=== PATIENT | female | born 1940 | race Caucasian/White ===

== ENCOUNTER → 2017-05-23 | Day surgery (SDC) | payer OTHER ==
[~2017-05-23] VITALS: Ht 165.1 cm; Wt 88.5 kg
[~2017-05-23] MED LIST: ALBU1AER9 INH; APIX1TAB3 PO; CETI1CAP3 PO; DYZ PO; FLUT0.15 NAE; FMR25 PO; PRLSR20 PO; PROP60CA5 PO; PROPOFOL IV EMULSION 10 MG/ML 20 ML VIAL IV ONE; RSTOPS OP; SYN100 PO; ZOLP5TAB PO
[2017-05-23 07:06] VITALS: BP 122/67; PULSE 84; TEMP 36.3; O2SAT 98; Ht 165.1 cm; Wt 88.5 kg
[2017-05-23 07:22] VITALS: BP 122/67; PULSE 82; O2SAT 98
--- NOTE | 2017-05-23 07:28 | History & Physical Bridge Note ---
H&P Re-Evaluation Bridge Note: I have examined the patient, reviewed the History & Physical and in the interval since the performance of the History & Physical I have noted the following changes of clinical significance: No changes noted. Patient remains in AF on examination this am and on telemetry. She has been on Eliquis without interruption for over 4 weeks, with most recent dose this am.
[2017-05-23 07:32] VITALS: BP 125/58; PULSE 82; O2SAT 98
[2017-05-23 07:35] VITALS: BP 125/58; PULSE 84; O2SAT 98
--- NOTE | 2017-05-23 07:42 | Cardioversion ---
Electricial Cardioversion Rpt Date of Service: 05/23/17 Electrical Cardioversion Rprt Procedure Date May 23, 2017. Pre-Procedure Diagnosis symptomatic atrial fibrillation Post-Procedure Diagnosis successful conversion to sinus rhythm Procedure(s) Performed Direct-current cardioversion Master Craftsman Ke Alexandra D.O. Forging Engineer(s) not applicable Estimated Blood Loss none Preliminary Findings After informed consent was obtained and a timeout was performed, the patient was sedated with the assistance of anesthesia department receiving 60 mg of IV propofol. The patient then underwent synchronized direct-current cardioversion receiving 300 J of biphasic energy 1 dose with successful conversion from atrial fibrillation to sinus bradycardia. Patient tolerated procedure well vital signs remain stable. Recommendations Continue current medications including Eliquis. Specimens none Anesthesia Propofol 60 mg IV Complication(s) None Disposition recover in the post cardiac screedman/laborer recovery area.
--- NOTE | 2017-05-23 08:34 | Discharge Instructions ---
Discharge Instructions Procedure Procedure Date: May 23, 2017. Reason for Visit: Symptomatic persistent atrial fibrillation Discharge Discharge Date: May 23, 2017. Discharge Diagnosis: Successful conversion to sinus rhythm Last Recorded Wt (Kilograms): 88.5 Anesthesia Post Anesthesia Instructions: If you have had General Anesthesia or IV Sedation: * Do not drive today. * Resume driving when surgeon permits. * Do not make important decisions or sign legal documents today. * Call surgeon for: 1. Temperature elevations greater than 101 degrees F. 2. Uncontrollable pain. 3. Excessive bleeding. 4. Persistent nausea and vomiting. 5. Medication intolerance (nausea, vomiting or rash). * For nausea and vomiting use only clear liquids such as: tea, soda, bouillon until nausea subsides, then gradually increase diet as tolerated. * If you have any concerns or questions, call your surgeon's office. If physician is unavailable and it is an emergency, call 911 or go to the nearest emergency room. Instructions Activity Recommendations: limitations as noted below Recommended Home Diet: resume previous diet Allergies: Coded Allergies: Adhesives (Verified Allergy, Unknown, Skin irritation;Skin very sensitive; , 04/27/17) Allantoin (Verified Allergy, Unknown, Skin very sensitive;, 04/27/17) Aloe (Verified Allergy, Unknown, Skin very sensitive;, 04/27/17) Edetic Acid (Verified Allergy, Unknown, Skin very sensitive;, 04/27/17) Glycerin (Verified Allergy, Unknown, Skin very sensitive;, 04/27/17) Lanolin (Verified Allergy, Unknown, Skin very sensitive;, 04/27/17) Sorbitol (Verified Allergy, Unknown, Skin very sensitive;, 04/27/17) Stearic Acid (Verified Allergy, Unknown, Skin very sensitive;, 04/27/17) Trolamine (Verified Allergy, Unknown, Skin very sensitive;, 04/27/17) Vegetable Oil (Verified Allergy, Unknown, Skin very sensitive;, 04/27/17) Vitamin A (Verified Allergy, Unknown, Skin very sensitive;, 04/27/17) Provider Instructions ACTIVITY RECOMMENDATIONS: Resume activities as tolerated with no limitations unless specified. _x_ No lifting over _10_ pounds for 24 hours. _x_ Do not engage in vigorous exercise, sexual activity, or sports for 24 hours. _x_ Do not drive or operate any motorized equipment for 24 hours. _x_ You may return to work/school tomorrow. SPECIAL CARE: If you experience coughing up or vomiting of blood, contact __Dr Alexandra __ Follow Up Follow-up with: Follow up with Dr Alexandra as scheduled. Sina Ma Recommendations: Call your doctor if: * Temperature above 101 degrees * Pain not relieved by pain medicine ordered * There is increased drainage or redness from any incision * You have any unanswered questions or concerns. Your Doctors Instructions noted above were prepared by provider Ke Alexandra. Patient Signature Section: Patient Instructions Signature Page Xi Kanwal Patient (or Guardian) Signature/Date: I have read and understand the instructions given to me by my caregivers. Caregiver/RN/Doctor Signature/Date: The above-named patient and/or guardian has received patient instructions on this date. + Original Patient Signature Page (only) stays with chart. Please make copy for patient.
[2017-05-23 09:00] VITALS: BP 108/52; PULSE 52; O2SAT 98
--- NOTE | 2017-05-23 09:25 | Anesthesiology Progress Note ---
Anesthesia Post Op Note Date & Time May 23, 2017 at 09:25 Vital Signs Pain Intensity: 0 Vital Signs Past 12 Hours Date Time Temp Pulse Resp B/P (MAP) Pulse Ox O2 Delivery O2 Flow Rate FiO2 05/23/17 09:00 52 16 108/52 (70) 98 Room Air 05/23/17 08:45 50 16 104/50 (68) 98 Room Air 05/23/17 08:30 50 16 106/53 (70) 98 Room Air 05/23/17 08:15 49 16 87/42 (57) 98 Room Air 05/23/17 08:00 48 16 94/43 (60) 98 Room Air 05/23/17 07:50 49 16 92/40 (57) 98 Room Air 05/23/17 07:35 84 16 125/58 98 Nasal Cannula 4 05/23/17 07:32 82 16 125/58 98 Nasal Cannula 4 05/23/17 07:22 82 16 122/67 98 Nasal Cannula 4 05/23/17 07:06 36.3 84 16 122/67 (85) 98 Room Air Notes Mental Status: alert / awake / arousable, participated in evaluation Pt Amnestic to Procedure: Yes Nausea / Vomiting: adequately controlled Pain: adequately controlled Airway Patency, RR, SpO2: stable & adequate BP & HR: stable & adequate Hydration State: stable & adequate Anesthetic Complications: no major complications apparent
== END | disposition home or self-care (01) ==
LOC: C.CATH 06:29
PROVIDERS: ATTEND Specialist
DX: I48.1 Persistent atrial fibrillation (principal); G25.0 Essential tremor; C50.211 Malignant neoplasm of upper-inner quadrant of right female breast; I10 Essential (primary) hypertension; Z79.01 Long term (current) use of anticoagulants

== ENCOUNTER → 2017-07-13 | Outpatient (CLI) | payer OTHER ==
[~2017-07-13] MED LIST changes: -PROPOFOL IV EMULSION 10 MG/ML 20 ML VIAL IV ONE
[2017-07-13 14:57] VITALS: BP 143/60; PULSE 60; TEMP 36.4; O2SAT 96
--- NOTE | 2017-07-13 16:23 | Radiation Oncology Follow-Up ---
Radiation Oncology Follow-Up Date of Visit Jul 13, 2017. 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 She received 5130 cGy utilizing hypo-fractionation. Last Edited By: Jamia Bennett on Jun 27, 2017 13:23 History of Present Illness Ms. Schofield has a previous history of B-cell lymphoma involving the left axilla treated with radiation therapy to a dose of 3600 cGy which completed on 04/13/2011. The patient has been in remission from her B-cell lymphoma since then. More recently, the patient presented with an abnormal mammogram on 2016 which revealed a lesion in the right breast at the 2 o'clock position 3 cm the nipple. The patient underwent an ultrasound core biopsy of the right breast on 01/04/2017 which revealed invasive lobular carcinoma that was grade 2 and was estrogen receptor positive and progesterone receptor positive and HER-2 negative. The patient underwent a bilateral MRI of the breasts on 03/12/2017 which only confirmed the known malignancy in the right breast measuring 14 mm in the greatest dimension but no other evidence of suspicious cancer in either the right or left breast. The patient underwent a right breast lumpectomy and sentinel lymph node biopsy by Dr. Clementine Hawk on 03/31/2017 which revealed invasive lobular carcinoma that was grade 2 and measured 18 mm in the greatest dimension and was unifocal. The margins were negative and the closest margin was 2 mm. No DCIS was noted in the specimen. There was no evidence of lymphovascular space invasion. 3 sentinel lymph nodes were excised and they were all negative for metastatic carcinoma. The patient's pathology specimen was sent for a Prosigna score which came back on 04/14/2017 with the score of 60 which placed her into the intermediate risk category. The patient has been referred to Dr. Mina Castillo from medical oncology (records unavailable). We are now seeing the patient in consultation discuss all of adjuvant radiation therapy. Currently, the patient doing relatively well overall. She denies any fevers, chills or night sweats. She states she is healed up well from surgery. She has no other complaints. Status post completion of radiation therapy June 13, 2017. She received 5130 cGy utilizing hypo-fractionation. Interim History She has been doing well over the past month. The skin irritation at the end of treatment healed without difficulty. She has noted no masses or tenderness no change of the axilla. She has had no swelling of her arm. She did have issues with her right shoulder. She was seen and evaluated. She had x-rays that revealed arthritis. She was on a dose of prednisone for approximately 13 days. This is now greatly improved. She does have a mild rash under the right breast. She has a prescriptive cream that she is used in the past. She is planning to call dermatology for a refill. She is sensitive to many prescriptive creams and only uses the 1 that has been prescribed by the road freight firer. She has started antiestrogen therapy. She is tolerating this well. Allergies Coded Allergies: Adhesives (Verified Allergy, Unknown, Skin irritation;Skin very sensitive; , 06/16/17) Allantoin (Verified Allergy, Unknown, Skin very sensitive;, 06/16/17) Aloe (Verified Allergy, Unknown, Skin very sensitive;, 06/16/17) Edetic Acid (Verified Allergy, Unknown, Skin very sensitive;, 06/16/17) Glycerin (Verified Allergy, Unknown, Skin very sensitive;, 06/16/17) Lanolin (Verified Allergy, Unknown, Skin very sensitive;, 06/16/17) Sorbitol (Verified Allergy, Unknown, Skin very sensitive;, 06/16/17) Stearic Acid (Verified Allergy, Unknown, Skin very sensitive;, 06/16/17) Trolamine (Verified Allergy, Unknown, Skin very sensitive;, 06/16/17) Vegetable Oil (Verified Allergy, Unknown, Skin very sensitive;, 06/16/17) Vitamin A (Verified Allergy, Unknown, Skin very sensitive;, 06/16/17) Home Medications Scheduled Apixaban (Eliquis), 5 MG PO BID Cetirizine Hcl (All Day Allergy), 10 MG PO DAILY Cyclosporine (Restasis Eye Drops), 1 DROP OP BID Fluticasone Propionate (Nasal) (Flonase Allergy Relief), 2 SPRAYS DILAN DAILY Letrozole (Femara), 1 TAB PO DAILY Levothyroxine (Synthroid *), 0.1 MG PO DAILY Omeprazole (Prilosec), 20 MG PO DAILY Propranolol Hcl (Inderal La), 60 MG PO DAILY Triamterene/Hctz (Dyazide 37.5MG/25MG *), 1 CAP PO DAILY Scheduled PRN Albuterol (Proair Hfa), 2 PUFFS INH QID PRN Zolpidem Tartrate (Ambien), 1 TAB PO HS PRN for Sleep Review of Systems Gastrointestinal: GI Comments: Stools loose, but formed- recent salmonella;1-3 BMs/day; Oral: Symptoms: No Problems Respiratory: Symptoms: WNL Urinary: Symptoms: WNL Skin: Other Skin Symptoms: Rashy appearance under right breast;using cetaphil; itchy; Breast: Right Upper Arm Measurement: 33.0 Right Mid Arm Measurement: 25.0 Right Wrist Measurement: 16.5 Left Upper Arm Measurement: 35.0 Left Mid Arm Measurement: 26.0 Left Wrist Measurement: 16.0 Arm Dominence: Left Additional Notes: She completed a distress management report and answered "no" to all questions other than she continues has concerns about her medical treatment choices. Physical Exam Vital Signs Date Time Temp Pulse Resp B/P (MAP) Pulse Ox O2 Delivery O2 Flow Rate FiO2 07/13/17 14:57 36.4 60 20 143/60 96 Fatigue: None General Appearance: no apparent distress Eyes: normal inspection, EOMI ENT: normal ENT inspection, hearing grossly normal Neck: no adenopathy, thyroid normal Respiratory/Chest: lungs clear, no respiratory distress, no accessory muscle use Breast: Breast examination reveals well-healed incisions the right breast. There is slight edema. There are no masses or tenderness and no axillary adenopathy. There is a well-demarcated rash in the inframammary fold. Using the [place] score of cosmesis she has a good outcome. The left breast showed no masses or tenderness and no axillary adenopathy. Cardiovascular: regular rate, rhythm, no gallop, no murmur Abdomen: non tender, soft, no organomegaly Extremities: no pedal edema Neurologic/Psychiatric: no motor/sensory deficits, alert, normal mood/affect Skin: warm/dry Pain Management Patient Reports Pain: No Pain Management Plan She denied pain therefore requires no pain management. Laboratory Laboratory Results: not applicable Pathology Pathology Results: were reviewed, and pertinent findings noted in HPI Imaging Imaging Studies: were reviewed, and pertinent findings noted in HPI Assessment & Plan Plan: Follow-up mammography has been scheduled through Dr. Hawk's office. Continue follow-up with Dr. Castillo. She continues on the antiestrogen therapy. We asked her to return to our office in 6 months. She may call if she has any questions or concerns in the interim. Today we completed a cancer survivorship care plan. A copy of the document was given to the patient. She was also given a survivorship booklet. Total Time In Follow-Up I spent 20 minutes speaking to the patient and performing examination. I spent 20 minutes reviewing information, preparing the survivorship document, and completing this note. 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
== END | disposition home or self-care (01) ==
LOC: C.ONC 14:46
PROVIDERS: ATTEND Physician Assistant Medical
DX: Z08 Encounter for follow-up examination after completed treatment for malignant neoplasm (principal); Z92.3 Personal history of irradiation; Z85.3 Personal history of malignant neoplasm of breast

== ENCOUNTER → 2017-09-07 | Outpatient (CLI) | payer OTHER ==
[~2017-09-07] MED LIST changes: +PROP60CA26 PO; -PROP60CA5 PO
[2017-09-07 10:16] LABS: HEMATOCRIT 44.3 % (37-47); HEMOGLOBIN 15.1 g/dL (12.0-16.0); MEAN CELL VOLUME 87.9 fL (80-100); MEAN CORPUSCULAR HGB CONC 34.1 g/dl (32-36); MEAN PLATELET VOLUME 10.8 fL (7.4-10.4); PLATELET COUNT 166 K/uL (130-400); RED CELL DISTRIBUTION WIDTH CV 13.6 % (11.5-14.5); RED CELL DISTRIBUTION WIDTH SD 43.8 fL (36.4-46.3); WHITE BLOOD COUNT 6.76 K/uL (4.8-10.8)
[2017-09-07 10:37] LABS: BLOOD UREA NITROGEN 14 mg/dl (7-18); CALCIUM 9.3 mg/dl (8.5-10.1); CARBON DIOXIDE 29 mmol/L (21-32); CHOLESTEROL 166 mg/dl (0-200); GLUCOSE 98 mg/dl (70-99); LDL CHOLESTEROL CALCULATED 93 mg/dl; POTASSIUM 3.4 mmol/L (3.5-5.1); SODIUM 138 mmol/L (136-145)
== END ==
LOC: C.LABFOXMH 09:24
PROVIDERS: ATTEND Internal Medicine
DX: E03.9 Hypothyroidism, unspecified (principal); I10 Essential (primary) hypertension

== ENCOUNTER 2019-12-22 18:59 | Inpatient (IN) ==
[2019-12-22] MEDS ORDERED: ONDANSETRON INJ 2 MG/ML 2 ML VIAL IV STA (19:47)
--- NOTE | 2019-12-22 19:52 | Emergency Department Note ---
History of Present Illness General Chief complaint: Illness Stated complaint: ABD PAIN, VOMITING, FEVER Time Seen by Provider: 12/22/19 19:38 Source: patient History of Present Illness Provider complaint: Abdominal pain Onset (ago): day(s) Location: abdomen and left Radiation: abdomen (Right abdomen) Severity: moderate Pain Consistency: + intermittent Maximum Pain Intensity: 5 Quality: + sharp Relieved By: + none Associated symptoms: + fever/chills (Low-grade temperature with T-max 100.1 today), + nausea/vomiting and + other (Loose diarrhea without blood x5); no chest pain, no cough, no headaches and no shortness of breath This is an 79-year-old female presents with abdominal pain. The pain started at 3 AM Monday morning. She describes it as a sharp pain in the left lower quadrant with some radiation to the right side. No alleviating factors. She rates it a 5 out of 10 in severity. It is associated with vomiting as well as diarrhea. The diarrhea is loose without blood. She had 5 episodes since this started. She has had a low-grade temperature of 100.1 today. She has had no recorded fevers. The patient denies any urinary symptoms, chest pain, shortness of breath or known exposure COVID-19. She denies any recent antibiotic use and denies any sick contacts. Home Medications Home Medications Medication Instructions Recorded Confirmed Type amlodipine [Norvasc] 2.5 mg PO DAILY 12/22/19 12/22/19 History apixaban [Eliquis] 5 mg PO BID 12/22/19 12/22/19 History cetirizine 10 mg PO DAILY 12/22/19 12/22/19 History famotidine 20 mg PO BID 12/22/19 12/22/19 History fluticasone propionate [Flonase 2 spray INTRANASAL DAILY PRN 12/22/19 12/22/19 History Allergy Relief] letrozole [Femara] 2.5 mg PO DAILY 12/22/19 12/22/19 History levothyroxine [Synthroid] 88 mcg PO DAILY 12/22/19 12/22/19 History potassium chloride 10 meq PO DAILY 12/22/19 12/22/19 History sotalol 80 mg PO BID 12/22/19 12/22/19 History triamterene-hydrochlorothiazid 1 tab PO DAILY 12/22/19 12/22/19 History [Maxzide-25mg] zolpidem [Ambien] 5 mg PO HS 12/22/19 12/22/19 History Allergies Allergy/AdvReac Type Severity Reaction Status Date / Time adhesive Allergy Unknown Skin Verified 12/22/19 22:10 irritation;Skin very sensitive; allantoin Allergy Unknown Skin very Verified 12/22/19 22:10 sensitive; aloe Allergy Unknown Skin very Verified 12/22/19 22:10 sensitive; edetic acid Allergy Unknown Skin very Verified 12/22/19 22:10 sensitive; glycerin Allergy Unknown Skin very Verified 12/22/19 22:10 sensitive; lanolin Allergy Unknown Skin very Verified 12/22/19 22:10 sensitive; trolamine salicylate Allergy Unknown Skin very Verified 12/22/19 22:10 sensitive; vitamin A Allergy Unknown Skin very Verified 12/22/19 22:10 sensitive; Stearic Acid Allergy Unknown Skin very Uncoded 12/22/19 22:10 sensitive; Past Med/Surg History Medical History Atrial fibrillation Breast cancer Fracture of left ankle H/O head and neck radiation History of cardioversion Hypertension Hypothyroid Lymphoma Thyroid tumor, benign Surgical History H/O partial thyroidectomy History of section History of partial mastectomy of left breast Social History Smoking Status: Former smoker Hx Alcohol Use: No (rare) Hx Substance Use: No Preferred Language: Telugu Communication Ability: Effective Cnc Service Engineer Required: No Beliefs That Will Affect Care: None Current Living Situation: Spouse Feels Safe at Home: Yes Review of Systems See HPI for pertinent positives & negatives. and A total of 10 systems reviewed and were otherwise negative Physical Exam Vital Signs Vital Signs - 24 hr 12/22/19 19:17 12/22/19 20:54 12/22/19 22:17 Temperature 37.4 C Temperature Source Oral Pulse Rate 72 Pulse Rate [Left Apical] 62 93 H Respiratory Rate 20 20 20 Respiratory Effort / Characteristics Non-Labored Spontaneous Normal for Patient Respiratory Depth Normal Blood Pressure 117/62 Blood Pressure [Right Arm] 136/54 L 146/59 H Blood Pressure Mean 80 Blood Pressure Mean [Right Arm] 81 88 Blood Pressure Position [Right Arm] Lying Pulse Oximetry 96 94 98 Oxygen Delivery Method Room Air Room Air Sepsis New/Unexplained Change in Mental Status N/A Sepsis Action Taken by Nursing No Action Required Constitutional: Vital signs reviewed. Eyes: Pupils are equal round reactive to light. Conjunctiva are noninjected. ENT: Pharynx is clear without erythema or exudate. Mucous membranes are slightly dry. Neck supple without meningeal signs. Respiratory: Clear to auscultation bilaterally. Breath sounds are equal bilaterally. Cardiovascular: Regular rate and rhythm. No rubs or gallops. GI: Soft, nondistended with left lower quadrant tenderness and mild right lower quadrant tenderness. No guarding. Bowel sounds are present. Musculoskeletal: No peripheral edema. No lower extremity tenderness. Integumentary: No cyanosis. or jaundice. Neurological: The patient is awake and alert. No focal deficits. Psychiatric: Normal affect. Not anxious appearing. Course Administered Medications Discontinued Medications Sodium Chloride (Nss) 500 mls @ 999 mls/hr IV .Q31M ILIR Stop: 12/22/19 20:30 Last Infusion: 12/22/19 21:25 Dose: 0 mls/hr Documented by: [id number] Admin: 12/22/19 20:47 Dose: 999 mls/hr Documented by: [id number] Piperacillin Sod/Tazobactam Sod (Zosyn) 4.5 gm in 120 mls @ 240 mls/hr IV NOW ONE Stop: 12/22/19 21:34 Last Admin: 12/22/19 21:25 Dose: 240 mls/hr Documented by: [id number] Ondansetron HCl (Ondansetron Inj 2 Mg/Ml 2 Ml Vial) 4 mg IV NOW STA Stop: 12/22/19 19:48 Last Admin: 12/22/19 20:46 Dose: 4 mg Documented by: [id number] Critical Care Time Critical Care Time: Yes Total Critical Care Time: 35 I have personally spent approximately 35 minutes of critical care time in the direct management of this patient. This includes bedside care, interpretation of diagnostic studies, and testing, discussion with consultants, patient, and family members, and other required patient management activities. These minutes are in excess of all separately billable procedures. Medical Decision Making Differential Diagnosis Diverticulitis, perforation, abscess, appendicitis, kidney stone, gastroenteritis, dehydration Medical Records Attestation: I reviewed the patient's medical records. I did perform a limited focused review of portions of the patient's old chart on the electronic medical record. The patient has had no recent pertinent visits to this hospital. Home Medications Current Medication List: was personally reviewed by me Laboratory Data Attestation: I reviewed the patient's lab results. Result diagrams: 12/22/19 21:20 12/22/19 21:20 Lab Results 12/22/19 12/22/19 12/22/19 Range/Units 21:20 21:20 21:30 WBC 21.22 H (4.8-10.8) K/uL RBC 4.94 (4.2-5.4) M/uL Hgb 14.8 (12.0-16.0) g/dL Hct 44.0 (37-47) % MCV 89.1 (80-100) fL MCH 30.0 (25-34) pg MCHC 33.6 (32-36) g/dL RDW Std Deviation 44.3 (36.4-46.3) fL RDW Coeff of Ken 13.6 (11.5-14.5) % Plt Count 145 (130-400) K/uL MPV 10.6 H (7.4-10.4) fL Immature Gran % (Auto) 0.3 % Neut % (Auto) 82.7 % Lymph % (Auto) 11.2 % Edmunds % (Auto) 5.7 % Eos % (Auto) 0.0 % Baso % (Auto) 0.1 % Neut # (Auto) 17.54 H (1.4-6.5) K/uL Lymph # (Auto) 2.38 (1.2-3.4) K/uL Edmunds # (Auto) 1.21 H (0.11-0.59) K/uL Eos # (Auto) 0.00 (0-0.5) K/uL Baso # (Auto) 0.02 (0-0.2) K/uL Immature Gran # (Auto) 0.07 H (0.00-0.02) K/uL PT 11.8 (9.0-12.0) Seconds INR 1.1 (0.9-1.1) APTT 31.7 H (21.0-31.0) Seconds PTT Ratio 1.1 Sodium 137 (136-145) mmol/L Potassium 3.5 (3.5-5.1) mmol/L Chloride 104 (98-107) mmol/L Carbon Dioxide 25 (21-32) mmol/L Anion Gap 8.0 (3-11) BUN 17 (7-18) mg/dl Creatinine 1.00 (0.6-1.2) mg/dl Est Cr Clr Drug Dosing 49.7 ml/min Est GFR ( Amer) 61.6 Est GFR (Non-Af Amer) 53.2 BUN/Creatinine Ratio 16.6 (10-20) Glucose 128 H (70-99) mg/dl Calcium 9.1 (8.5-10.1) mg/dl Total Bilirubin 1.2 H (0.2-1) mg/dl AST 24 (15-37) U/L ALT 19 (12-78) U/L Alkaline Phosphatase 56 (45-117) U/L Total Protein 6.9 (6.4-8.2) gm/dl Albumin 3.2 L (3.4-5.0) gm/dl Globulin 3.7 (2.5-4.0) gm/dl Albumin/Globulin Ratio 0.9 (0.9-2) Lipase 66 L (73-393) U/L COVID-19 Eval Order SARS-CoV-2, RNA, NAAT (NEGATIVE) 12/22/19 12/22/19 Range/Units 21:57 21:57 WBC (4.8-10.8) K/uL RBC (4.2-5.4) M/uL Hgb (12.0-16.0) g/dL Hct (37-47) % MCV (80-100) fL MCH (25-34) pg MCHC (32-36) g/dL RDW Std Deviation (36.4-46.3) fL RDW Coeff of Ken (11.5-14.5) % Plt Count (130-400) K/uL MPV (7.4-10.4) fL Immature Gran % (Auto) % Neut % (Auto) % Lymph % (Auto) % Edmunds % (Auto) % Eos % (Auto) % Baso % (Auto) % Neut # (Auto) (1.4-6.5) K/uL Lymph # (Auto) (1.2-3.4) K/uL Edmunds # (Auto) (0.11-0.59) K/uL Eos # (Auto) (0-0.5) K/uL Baso # (Auto) (0-0.2) K/uL Immature Gran # (Auto) (0.00-0.02) K/uL PT (9.0-12.0) Seconds INR (0.9-1.1) APTT (21.0-31.0) Seconds PTT Ratio Sodium (136-145) mmol/L Potassium (3.5-5.1) mmol/L Chloride (98-107) mmol/L Carbon Dioxide (21-32) mmol/L Anion Gap (3-11) BUN (7-18) mg/dl Creatinine (0.6-1.2) mg/dl Est Cr Clr Drug Dosing ml/min Est GFR ( Amer) Est GFR (Non-Af Amer) BUN/Creatinine Ratio (10-20) Glucose (70-99) mg/dl Calcium (8.5-10.1) mg/dl Total Bilirubin (0.2-1) mg/dl AST (15-37) U/L ALT (12-78) U/L Alkaline Phosphatase (45-117) U/L Total Protein (6.4-8.2) gm/dl Albumin (3.4-5.0) gm/dl Globulin (2.5-4.0) gm/dl Albumin/Globulin Ratio (0.9-2) Lipase (73-393) U/L COVID-19 Eval Order Covid19 IDNow [facility] SARS-CoV-2, RNA, NAAT NEGATIVE (NEGATIVE) Imaging Data Radiologist's Impression: CT ABDOMEN & PELVIS Without Contrast: Colon is in the left abdomen, and small bowel loops are in the right abdomen, suggesting bowel malrotation. Significantly enlarged, inflamed appendix which is located in the midline lower abdomen/left lower quadrant, measuring approximately up to 1.8 cm in diameter. Appendicoliths within the appendix. Findings are concerning for acute appendicitis. Wall thickening 2 segments of the sigmoid colon may represent colitis. Wall thickening of the small bowel loops in the lower abdomen, concerning for enteritis/reactive inflammatory changes. Mesenteric edema and small amount of fluid in the left lower abdomen and pelvis. No definite free air. No fluid collection. Large hiatal hernia. Hepatic steatosis. No hydronephrosis or stone. Atherosclerotic changes of the vasculature. No aortic aneurysm. Pacer wires partially visualized in the heart. Small fat-containing umbilical hernia. Decompressed bladder. Radiologist: Yadira Chavira M.D. Study ready at 20:37 and initial results transmitted at 20:51 Communications: Clear Time Type Notes 12/22/19 20:52 Call Doctor Regarding Appendicitis, called Dr. Singleton on 12/21 20:52 (-04:00) Blood Pressure Blood Pressure Findings: Normal blood pressure MDM Narrative I did evaluate the patient as noted above. The patient is presenting with left-sided abdominal pain with tenderness. She also has diarrhea. I was concerned about diverticulitis. IV access was established. I did treat the patient with Zofran and normal saline IV. She declined any pain medications. I did order a urine analysis. I did order and review the patient's blood work as noted in the electronic medical record. She has severe leukocytosis with a white count over 21,000. Electrolytes and LFTs are unremarkable. Lipase is not elevated. I did order a CT of the abdomen and pelvis. I did review the images myself as well as the radiology report as described above. I did discuss the results with the radiologist. She has what appears to be acute appendicitis with perforation. There is a small amount of free fluid in the lower abdomen with significant inflammatory changes to the adjacent sigmoid colon and small bowel as well as mesentery. I did treat the patient with Zosyn IV. I did discuss the test results with the patient and her . I did discuss case with Dr. Reyes of surgery. He came down to the emergency department and assessed the patient. The patient last took her Eliquis this morning. The surgeon did take the patient emergently to the OR for operative repair. Impression & Plan Acute appendicitis with generalized peritonitis, Anticoagulated Discharge Plan Visit Data Chief Complaint: Illness Stated Complaint: ABD PAIN, VOMITING, FEVER ED Provider: Addison Singleton Discharge Problem: Acute appendicitis with generalized peritonitis, Anticoagulated Patient Disposition: Admitted As Inpatient Discharge Instructions Interventions: ED Discharge Assessment Last Done: 12/22/19 22:53
[2019-12-22] MEDS ORDERED: SODIUM CHLORIDE 0.9% 500 ML IV SCH (20:00)
[2019-12-22] MEDS ORDERED: PIPERACILLIN/TAZOBACTAM 4.5 GM/120 ML BAG IV ONE (21:05)
[2019-12-22] MEDS ORDERED: PIPERACILL/TAZOBAC CONSULT ACTIVE PRN (21:05)
[2019-12-22 21:28] LABS: Basophils # (auto) 0.02 K/uL (0-0.2); Basophils % (auto) 0.1 %; Hemoglobin 14.8 g/dL (12.0-16.0); Immature Granulocytes # (auto) 0.07 K/uL (0.00-0.02); Immature Granulocytes % (auto) 0.3 %; Lymphocytes # (auto) 2.38 K/uL (1.2-3.4); Lymphocytes % (auto) 11.2 %; Mean Corpuscular Hgb Conc 33.6 g/dL (32-36); Mean Corpuscular Volume 89.1 fL (80-100); Mean Platelet Volume 10.6 fL (7.4-10.4); Monocytes # (auto) 1.21 K/uL (0.11-0.59); Monocytes % (auto) 5.7 %; Neutrophils # (auto) 17.54 K/uL (1.4-6.5); Neutrophils % (auto) 82.7 %; Platelet Count 145 K/uL (130-400); RDW Coefficient of Variation 13.6 % (11.5-14.5); RDW Standard Deviation 44.3 fL (36.4-46.3); Red Blood Count 4.94 M/uL (4.2-5.4); White Blood Count 21.22 K/uL (4.8-10.8)
[2019-12-22 21:46] LABS: Albumin Level 3.2 gm/dl (3.4-5.0); BUN Creatinine Ratio 16.6 (10-20); Calcium 9.1 mg/dl (8.5-10.1); Creatinine Clr Calc Pharmacy 49.7 ml/min; Est GFR (African American) 61.6; Est GFR (Non-African American) 53.2; Potassium 3.5 mmol/L (3.5-5.1)
[2019-12-22 21:49] LABS: Albumin Globulin Ratio 0.9 (0.9-2); Bilirubin,Total 1.2 mg/dl (0.2-1); Globulin 3.7 gm/dl (2.5-4.0); Total Protein 6.9 gm/dl (6.4-8.2)
[2019-12-22 21:53] LABS: INR 1.1 (0.9-1.1); Partial Thromboplastin Ratio 1.1; Partial Thromboplastin Time 31.7 Seconds (21.0-31.0); Prothrombin Time 11.8 Seconds (9.0-12.0)
--- NOTE | 2019-12-22 22:23 | Surgery Consultation ---
Date of Consultation December 22, 2019 Assessment & Plan (1) Acute abdominal pain: pt is a 79 year-old female who presents to ER with 2 days history lower abdominal pain with nausea and vomiting, fever, WBC 21,000 CT scan- acute appendicitis, diameter 1.8cm, mal-bowel rotation, IMP: acute abdominal pain, acute appendicitis, sepsis, plan, I recommend to do laparoscopic appendectomy, possible open, D/W benefits, risks and alternatives of the surgery, the risks - infection may higher than n ormal people base on pt is Eliquis, last dose was this morning, pt hold her evening dose, others risks including but not limit such as : infection, abscess, sepsis, WA, injury other organs, stroke, DVT and , pt and her understood, they agree with the surgery. I answered all questions, pre-op iv antibiotic, (2) Acute appendicitis with generalized peritonitis: (3) Sepsis: History of Present Illness History of Present Illness History of Present Illness General Chief complaint: Illness Stated complaint: ABD PAIN, VOMITING, FEVER Time Seen by Provider: 12/22/19 19:38 Source: patient History of Present Illness Provider complaint: Abdominal pain Onset (ago): day(s) Location: abdomen and left Radiation: abdomen (Right abdomen) Severity: moderate Pain Consistency: + intermittent Maximum Pain Intensity: 5 Quality: + sharp Relieved By: + none Associated symptoms: + fever/chills (Low-grade temperature with T-max 100.1 today), + nausea/vomiting and + other (Loose diarrhea without blood x5); no chest pain, no cough, no headaches and no shortness of breath This is an 79-year-old female presents with abdominal pain. The pain started at 3 AM Monday morning. She describes it as a sharp pain in the left lower quadrant with some radiation to the right side. No alleviating factors. She rates it a 5 out of 10 in severity. It is associated with vomiting as well as diarrhea. The diarrhea is loose without blood. She had 5 episodes since this started. She has had a low-grade temperature of 100.1 today. She has had no recorded fevers. The patient denies any urinary symptoms, chest pain, shortness of breath or known exposure COVID-19. She denies any recent antibiotic use and denies any sick contacts. I ( Stalin Reyes MD) got a call for consult acute appendicitis, I reviewed pt's H/P, labs, CT scan with pt, last dose of Eliquis was morning. Home Medications Home Medications Medication Instructions Recorded Confirmed Type Cyclosporine (Restasis Eye Drops) 1 drp OPHTHALMIC (EYE) BID #0 02/25/11 01/16/18 History Levothyroxine (Synthroid *) 0.1 mg PO DAILY #0 02/25/11 01/16/18 History Albuterol (Proair Hfa) 2 puff INHALATION QID PRN #0 12/21/12 01/16/18 History CETIRIZINE HCL (ALL DAY ALLERGY) 10 mg PO DAILY #0 12/21/12 01/16/18 History APIXABAN (ELIQUIS) 5 mg PO BID #0 tab 04/27/17 01/16/18 History Fluticasone Propionate (Nasal) 2 spry DILAN DAILY #0 04/27/17 01/16/18 History (Flonase Allergy Relief) ZOLPIDEM TARTRATE (AMBIEN) 1 tab PO HS PRN 30 Days #30 tab 04/27/17 History LETROZOLE (Femara) 1 tab PO DAILY 30 Days #30 tab 05/22/17 01/16/18 History CLOBETASOL PROPIONATE EMULSION #0 11/14/17 01/16/18 History (CLOBETASOL PROPIONATE) Potassium Ext Rel (Klor-Con) 10 meq PO DAILY #0 tab 11/14/17 01/16/18 History famotidine-Ca carb-mag hydrox 1 tab PO BID 01/09/18 01/16/18 History [Pepcid Complete] sotalol 80 mg PO BID #60 tab 01/11/18 01/16/18 Rx triamterene-hydrochlorothiazid 1 cap PO MoWeFr@0900 #30 cap 01/12/18 01/16/18 Rx Allergies Allergy/AdvReac Type Severity Reaction Status Date / Time adhesive Allergy Unknown Skin Verified 01/16/18 14:33 irritation;Skin very sensitive; allantoin Allergy Unknown Skin very Verified 01/16/18 14:33 sensitive; aloe Allergy Unknown Skin very Verified 01/16/18 14:33 sensitive; edetic acid Allergy Unknown Skin very Verified 01/16/18 14:33 sensitive; glycerin Allergy Unknown Skin very Verified 01/16/18 14:33 sensitive; lanolin Allergy Unknown Skin very Verified 01/16/18 14:33 sensitive; trolamine salicylate Allergy Unknown Skin very Verified 01/16/18 14:33 sensitive; vitamin A Allergy Unknown Skin very Verified 01/09/18 07:16 sensitive; Stearic Acid Allergy Unknown Skin very Uncoded 01/09/18 07:16 sensitive; Past Med/Surg History Medical History Atrial fibrillation Breast cancer Fracture of left ankle H/O head and neck radiation History of cardioversion Hypertension Hypothyroid Lymphoma Thyroid tumor, benign Surgical History H/O partial thyroidectomy History of section History of partial mastectomy of left breast Social History Smoking Status: Former smoker Hx Alcohol Use: No (rare) Hx Substance Use: No Preferred Language: Afghan Communication Ability: Effective 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 and A total of 10 systems reviewed and were otherwise negative Allergies Allergy/AdvReac Type Severity Reaction Status Date / Time adhesive Allergy Unknown Skin Verified 12/22/19 22:10 irritation;Skin very sensitive; allantoin Allergy Unknown Skin very Verified 12/22/19 22:10 sensitive; aloe Allergy Unknown Skin very Verified 12/22/19 22:10 sensitive; edetic acid Allergy Unknown Skin very Verified 12/22/19 22:10 sensitive; glycerin Allergy Unknown Skin very Verified 12/22/19 22:10 sensitive; lanolin Allergy Unknown Skin very Verified 12/22/19 22:10 sensitive; trolamine salicylate Allergy Unknown Skin very Verified 12/22/19 22:10 sensitive; vitamin A Allergy Unknown Skin very Verified 12/22/19 22:10 sensitive; Stearic Acid Allergy Unknown Skin very Uncoded 12/22/19 22:10 sensitive; Home Medications Home Medications Medication Instructions Recorded Confirmed Type amlodipine [Norvasc] 2.5 mg PO DAILY 12/22/19 12/22/19 History apixaban [Eliquis] 5 mg PO BID 12/22/19 12/22/19 History cetirizine 10 mg PO DAILY 12/22/19 12/22/19 History famotidine 20 mg PO BID 12/22/19 12/22/19 History fluticasone propionate [Flonase 2 spray INTRANASAL DAILY PRN 12/22/19 12/22/19 History Allergy Relief] letrozole [Femara] 2.5 mg PO DAILY 12/22/19 12/22/19 History levothyroxine [Synthroid] 88 mcg PO DAILY 12/22/19 12/22/19 History potassium chloride 10 meq PO DAILY 12/22/19 12/22/19 History sotalol 80 mg PO BID 12/22/19 12/22/19 History triamterene-hydrochlorothiazid 1 tab PO DAILY 12/22/19 12/22/19 History [Maxzide-25mg] zolpidem [Ambien] 5 mg PO HS 12/22/19 12/22/19 History Patient History Medical History Atrial fibrillation Breast cancer Fracture of left ankle H/O head and neck radiation History of cardioversion Hypertension Hypothyroid Lymphoma Thyroid tumor, benign Surgical History H/O partial thyroidectomy History of section History of partial mastectomy of left breast Social History Smoking Status: Former smoker Hx Alcohol Use: No (rare) Hx Substance Use: No Preferred Language: Afghan Communication Ability: Effective Tractor Trailer Moving Van Driver Required: No Beliefs That Will Affect Care: None Current Living Situation: Spouse Feels Safe at Home: Yes Review of Systems Review of Systems: All systems reviewed & are unremarkable except as noted in HPI & below Constitutional: as per Subjective / HPI Eyes: as per Subjective / HPI Ear, Nose, Mouth, Throat: as per Subjective / HPI Respiratory: as per Subjective / HPI Cardiovascular: as per Subjective / HPI Additional Comments: A-fib Gastrointestinal: as per Subjective / HPI Genitourinary: as per Subjective / HPI Breast cancer Musculoskeletal: as per Subjective / HPI Integumentary: as per Subjective / HPI Neurologic: as per Subjective / HPI Psychiatric: as per Subjective / HPI Endocrine: as per Subjective / HPI Hematologic / Lymphatic: as per Subjective / HPI lymphoma 2011 Allergy / Immunological: as per Subjective / HPI Physical Exam Constitutional: WD/WN, vitals as above well developed and well nourished Eyes: PERRL, conjunctivae normal, anicteric sclerae ENMT: external ear and nose normal, oropharynx normal Neck: trachea midline, no thyromegaly Respiratory: normal respiratory effort, lungs clear to auscultation Cardiovascular: Heart Sounds: normal S1 and normal S2 Aifib, Gastrointestinal (Abdomen): lower middle line scar, tenderness at lower left side abdomen, with rebound pain, no distend, BS + Musculoskeletal: no cyanosis or clubbing, extremities motor strength 5/5 Skin: no rashes, warm and dry Neurologic: patellar DTR's 2+ bilat, sensation intact Psychiatric: Orientation: alert and oriented x 3 Results & Data ([facility]) Vital Signs (Past 12 Hours) Vital Signs Temp Pulse Pulse Resp BP BP Pulse Ox 12/22/19 20:54 62 20 136/54 L 94 12/22/19 19:17 37.4 C 72 20 117/62 96 Laboratory Results Abnormal lab results 12/22/19 12/22/19 12/22/19 Range/Units 21:20 21:20 21:30 WBC 21.22 H (4.8-10.8) K/uL MPV 10.6 H (7.4-10.4) fL Neut # (Auto) 17.54 H (1.4-6.5) K/uL [place] # (Auto) 1.21 H (0.11-0.59) K/uL Immature Gran # (Auto) 0.07 H (0.00-0.02) K/uL APTT 31.7 H (21.0-31.0) Seconds Glucose 128 H (70-99) mg/dl Total Bilirubin 1.2 H (0.2-1) mg/dl Albumin 3.2 L (3.4-5.0) gm/dl Lipase 66 L (73-393) U/L CT scan- mal-bowel rotation, acute appendicitis, located at LLLQ area, diameter, 1.8cm,
[2019-12-22] MEDS ORDERED: BACITRACIN OINT 15 GM TUBE ONE (22:24)
[2019-12-22] MEDS ORDERED: LIDOCAINE HCL 1% 20 ML VIAL ONE (22:24)
[2019-12-22] MEDS ORDERED: BUPIVACAINE 0.5 % 5 MG/1 ML MPF 30ML VIAL ONE (22:24)
--- NOTE | 2019-12-22 22:35 | History & Physical Bridge Note ---
Date of Service December 22, 2019 History & Physical Bridge Note I have examined the patient, reviewed the History & Physical and in the interval since the performance of the History & Physical I have noted the following changes of clinical significance: no changes noted
[2019-12-22] MEDS ORDERED: fentaNYL citrate 100 MCG/2 ML VIAL ONE (22:52)
[2019-12-22] MEDS ORDERED: PROPOFOL IV EMULSION 10 MG/ML 20 ML VIAL IV ONE (22:53)
[2019-12-22] MEDS ORDERED: LIDOCAINE HCL 2% 2 ML VIAL/AMP(20MG/ML) INFIL ONE (22:55)
[2019-12-22] MEDS ORDERED: GLYCOPYRROLATE 0.2 MG/ML VIAL ONE (22:55)
[2019-12-22] MEDS ORDERED: ONDANSETRON INJ 2 MG/ML 2 ML VIAL ONE (22:55)
[2019-12-22] MEDS ORDERED: NEOSTIGMINE METHYLSULFATE 5 MG/5 ML SYR ONE (22:55)
[2019-12-22] MEDS ORDERED: ROCURONIUM BROMIDE 10 MG/ML 5 ML VIAL IV ONE ×5 (22:55)
--- NOTE | 2019-12-22 23:09 | Anesthesiology Consultation ---
Date of Service December 22, 2019 Assessment & Plan Chart Review Chart Review: Acceptable Risk for Surgery Consults Requested none History Surgery Operation Date: 12/22/19 22:00 Proposed Procedures p Laparoscopic Appendectomy - Stalin Reyes MD Height/Weight Height: 5 ft 6 in Weight: 86.5 kg Allergies Allergy/AdvReac Type Severity Reaction Status Date / Time adhesive Allergy Unknown Skin Verified 12/22/19 22:10 irritation;Skin very sensitive; allantoin Allergy Unknown Skin very Verified 12/22/19 22:10 sensitive; aloe Allergy Unknown Skin very Verified 12/22/19 22:10 sensitive; edetic acid Allergy Unknown Skin very Verified 12/22/19 22:10 sensitive; glycerin Allergy Unknown Skin very Verified 12/22/19 22:10 sensitive; lanolin Allergy Unknown Skin very Verified 12/22/19 22:10 sensitive; trolamine salicylate Allergy Unknown Skin very Verified 12/22/19 22:10 sensitive; vitamin A Allergy Unknown Skin very Verified 12/22/19 22:10 sensitive; Stearic Acid Allergy Unknown Skin very Uncoded 12/22/19 22:10 sensitive; Medications Home Medications Medication Instructions Recorded Confirmed Last Taken amlodipine [Norvasc] 2.5 mg PO DAILY 12/22/19 12/22/19 Unknown apixaban [Eliquis] 5 mg PO BID 12/22/19 12/22/19 Unknown cetirizine 10 mg PO DAILY 12/22/19 12/22/19 Unknown famotidine 20 mg PO BID 12/22/19 12/22/19 Unknown fluticasone propionate [Flonase 2 spray INTRANASAL DAILY PRN 12/22/19 12/22/19 Unknown Allergy Relief] letrozole [Femara] 2.5 mg PO DAILY 12/22/19 12/22/19 Unknown levothyroxine [Synthroid] 88 mcg PO DAILY 12/22/19 12/22/19 Unknown potassium chloride 10 meq PO DAILY 12/22/19 12/22/19 Unknown sotalol 80 mg PO BID 12/22/19 12/22/19 Unknown triamterene-hydrochlorothiazid 1 tab PO DAILY 12/22/19 12/22/19 Unknown [Maxzide-25mg] zolpidem [Ambien] 5 mg PO HS 12/22/19 12/22/19 Unknown NPO Date Last Intake of Fluids: 12/22/19 Time Last Intake of Fluids: 12:00 Last Intake of Fluids Comment: Tea Date Last Intake of Solids: 12/22/19 Time Last Intake of Solids: 10:30 Past Medical History Medical History Atrial fibrillation Breast cancer Fracture of left ankle H/O head and neck radiation History of cardioversion Hypertension Hypothyroid Lymphoma Thyroid tumor, benign Past Surgical History Surgical History H/O partial thyroidectomy History of section History of partial mastectomy of left breast Social History Smoking Status: Former smoker Hx Alcohol Use: No (rare) Hx Substance Use: No substance use type: does not use Physical Exam Vital Signs Last Vital Signs Temp 37.4 C 12/22/19 19:17 Pulse 93 H 12/22/19 22:17 Resp 20 12/22/19 22:17 BP 146/59 H 12/22/19 22:17 Pulse Ox 98 12/22/19 22:17 Testing Laboratory Results 12/22/19 21:20 12/22/19 21:20 PT 11.8 Seconds (9.0-12.0) 12/22/19 21:30 INR 1.1 (0.9-1.1) 12/22/19 21:30 APTT 31.7 Seconds (21.0-31.0) H 12/22/19 21:30
[2019-12-22] MEDS ORDERED: HYDROmorphone INJ 1 MG/ML SYRINGE IV PRN (23:11)
[2019-12-22] MEDS ORDERED: PROMETHAZINE HCL 12.5 MG in SODIUM CHLORIDE 0.9% 50 ML IV PRN (23:11)
[2019-12-22] MEDS ORDERED: ONDANSETRON INJ 2 MG/ML 2 ML VIAL IV PRN (23:11)
[2019-12-22] MEDS ORDERED: METOCLOPRAMIDE HCL INJ 5 MG/ML 2 ML VIAL IV PRN (23:11)
[2019-12-22] MEDS ORDERED: fentaNYL citrate 100 MCG/2 ML VIAL IV PRN (23:11)
[2019-12-22] MEDS ORDERED: ATROPINE SULFATE 0.1 MG/ML 10ML SYR IV PRN (23:11)
[2019-12-22] MEDS ORDERED: ePHEDrine sulfate 50 MG/ML AMP IV PRN (23:11)
[2019-12-23] MEDS ORDERED: VANCOMYCIN HCL 1000MG/20ML VIAL ONE (00:18)
[2019-12-23] MEDS ORDERED: LABETALOL HCL IV 5 MG/ML 20ML IV ONE (00:25)
[2019-12-23] MEDS ORDERED: METOPROLOL TARTRATE 1 MG/ML VIAL IV ONE (00:25)
--- NOTE | 2019-12-23 00:57 | Post Operative Brief Note ---
Immediate Post Op Note v1 Date of Surgery December 23, 2019 Pre & Post Diagnosis Operation Date: 12/22/19 22:00 Pre-Op Diagnosis: Acute appendicitis Post-Op Diagnosis: Acute appendicitis, gangrene, perforation I identified the patient and participated in the time-out.: Yes Procedure Operation Date: 12/22/19 22:00 Actual Procedures p Laparoscopic Appendectomy, converted to Open (Not Applicable) - Stalin Reyes MD Surgeon Stalin Reyes MD Water Vessel Captain airframe technical officer Estimated Blood Loss 10 Findings Consistent with Post-Op Diagnosis acute appendicitis, gangrene and perforation Fluids 1000ml Specimens appendix Drains Mac Catheter (inserted at beginning of case by Oriana Knutson RN without difficulty. Draining clear yellow urine, discontinued at the end of the procedure) Anesthesia Type General Complications none Disposition Accompanied Patient To Recovery: Yes Disposition: Recovery Room Overlapping Procedure I was immediately available: during the entire case.
[2019-12-23] MEDS ORDERED: PIPERACILL/TAZOBAC CONSULT ACTIVE PRN ×2 (01:33→10:21)
[2019-12-23] MEDS ORDERED: FLUTICASONE PROPIONATE NA SPR 16 GM BTL PRN (01:33)
[2019-12-23] MEDS ORDERED: HYDROmorphone INJ 0.5 MG/0.5 ML SYR IV PRN (01:33)
[2019-12-23] MEDS ORDERED: ONDANSETRON INJ 2 MG/ML 2 ML VIAL IV PRN (01:33)
[2019-12-23] MEDS ORDERED: LACTATED RINGER'S 1,000 ML IV SCH ×2 (01:33→21:45)
--- NOTE | 2019-12-23 01:41 | Critical Care Consultation ---
Date of Consultation December 23, 2019 Assessment & Plan (1) Acute appendicitis with generalized peritonitis: Impression: 79-year-old female with acute appendicitis and peritonitis with concern for sepsis presents to the ICU postoperatively following open appendectomy Neuro - CAM ICUnegative Pain managementPercocet, Dilaudid Cardiac - Currently normotensive without use of vasopressors, no current signs of septic shock A. fibcurrently rate controlled -Currently holding Eliquis following surgery -Continue Sotalol -Continuous monitoring on telemetry AV blockstatus post pacemaker HTNwe will hold home dose medications for the time being as there is concern for sepsis, may restart when appropriate Respiratory - No history respiratory disease, currently maintaining sats on 4 L nasal cannula -We will wean as tolerated -Continuous monitoring on pulse ox GI - Acute appendicitisCT abdomen concerning for acute appendicitis, now s/p open appendectomy -Concern for perforation, sepsis, peritonitis; and patient transferred to ICU following procedure -We will follow surgical recommendation -Currently no signs of septic shock -Continue Zosyn Hiatal herniacontinue PPI -N.p.o. for now, would advance diet with caution ColitisCT reading as above, consistent with reports of diarrhea -Continue with Zosyn Bowel malrotationlikely incidental finding on CT scan, will monitor for signs of bowel obstruction RENAL/LYTES - Creatinine within normal limits, monitor electrolytes and replete as indicated Hypothyroidismwe will continue home dose potassium 10 mEq daily - Indwelling Mac, strict I's and O's ENDO - No history of diabetes, ICU hypoglycemic protocol Hypothyroidism following thyroidectomyTSH within normal limits, continue Synthroid HEME - H&H stable, monitor routine CBCs ID - Sepsis? Secondary to intra-abdominal infection with acute appendicitis with perforation (s/p appendectomy), concern for peritonitis, colitis on CT abdomen -Fever of 100.1 in the emergency department, now afebrile; significant leukocytosis -We will obtain blood cultures and UA, will obtain lactate -COVID negative -Loaded with Zosyn in the emergency department, will continue LINES/IV ACCESS - Peripheral IVs x2, Mac DVT PROPHYLAXIS - SCDs, Lovenox Thank you for allowing us to participate in the care of this patient. Please refer to my attending physician's documentation for any further recommendations. (2) Anticoagulated: (3) Sepsis: (4) Acute abdominal pain: (5) A-fib: (6) Hypothyroidism associated with surgical procedure: (7) Acute colitis: (8) Hiatal hernia: History of Present Illness Attending Physician: Stalin Reyes MD History of Present Illness Patient is a 79-year-old female with history of HTN, breast cancer, hypothyroidism following thyroidectomy, A. fib (on Eliquis) who presented to the emergency department yesterday evening with complaints of abdominal pain, fever, and diarrhea which started around 3 AM. She rated abdominal pain of 5 out of 10. She did have a low-grade fever of 100.1, denied known exposure to COVID-19, and rapid COVID 19 negative. There was initial concern for diverticulitis and she underwent CT of the abdomen which showed a significantly enlarged and inflamed appendix with concern for acute appendicitis and finding of malrotation of the colon which appendix is on the left lower abdominal quadrant. Patient was given Zosyn and general surgery was consulted and took the patient emergently to the OR for appendectomy. Laparoscopic appendectomy was converted to open and there was concern for perforation, gangrene, and potential sepsis. There was concern that the patient was high risk for rapid decompensation and surgeon felt patient should be transferred to the ICU for further management. Patient presents to the ICU postop. She is currently hemodynamically stable without use of vasopressors and maintaining oxygen saturation on nasal cannula. She is currently afebrile. She is rather drowsy following sedation but is alert and oriented. She currently reports mild generalized discomfort and tenderness of the abdomen with light palpation. She denies headache, nausea, dizziness, shortness of breath, chest pain. Will manage in ICU during the acute phase as patient is high risk for decompensation following acute appendicitis with perforation, generalized peritonitis, and concerns for sepsis. Allergies Allergy/AdvReac Type Severity Reaction Status Date / Time adhesive Allergy Unknown Skin Verified 12/22/19 22:10 irritation;Skin very sensitive; allantoin Allergy Unknown Skin very Verified 12/22/19 22:10 sensitive; aloe Allergy Unknown Skin very Verified 12/22/19 22:10 sensitive; edetic acid Allergy Unknown Skin very Verified 12/22/19 22:10 sensitive; glycerin Allergy Unknown Skin very Verified 12/22/19 22:10 sensitive; lanolin Allergy Unknown Skin very Verified 12/22/19 22:10 sensitive; trolamine salicylate Allergy Unknown Skin very Verified 12/22/19 22:10 sensitive; vitamin A Allergy Unknown Skin very Verified 12/22/19 22:10 sensitive; Stearic Acid Allergy Unknown Skin very Uncoded 12/22/19 22:10 sensitive; Home Medications Home Medications Medication Instructions Recorded Confirmed Type amlodipine [Norvasc] 2.5 mg PO DAILY 12/22/19 12/22/19 History apixaban [Eliquis] 5 mg PO BID 12/22/19 12/22/19 History cetirizine 10 mg PO DAILY 12/22/19 12/22/19 History famotidine 20 mg PO BID 12/22/19 12/22/19 History fluticasone propionate [Flonase 2 spray INTRANASAL DAILY PRN 12/22/19 12/22/19 History Allergy Relief] letrozole [Femara] 2.5 mg PO DAILY 12/22/19 12/22/19 History levothyroxine [Synthroid] 88 mcg PO DAILY 12/22/19 12/22/19 History potassium chloride 10 meq PO DAILY 12/22/19 12/22/19 History sotalol 80 mg PO BID 12/22/19 12/22/19 History triamterene-hydrochlorothiazid 1 tab PO DAILY 12/22/19 12/22/19 History [Maxzide-25mg] zolpidem [Ambien] 5 mg PO HS 12/22/19 12/22/19 History Patient History Medical History (Updated 12/23/19 @ 03:05 by SABINA Forrester) Atrial fibrillation Breast cancer Fracture of left ankle H/O head and neck radiation History of cardioversion Hypertension Hypothyroid Lymphoma Thyroid tumor, benign Surgical History H/O partial thyroidectomy History of section History of partial mastectomy of left breast Social History Smoking Status: Never smoker Second Hand Exposure: No; Do You Dip or Chew Tobacco: No; Tobacco Cessation Education Requested by Patient: No Hx Alcohol Use: No Hx Substance Use: No Preferred Language: Danish Communication Ability: Effective Nurse Esthetician Required: No Beliefs That Will Affect Care: None Current Living Situation: Spouse Other Information That Helps Us Care for You: No Feels Safe at Home: Yes Safety Concerns: Feels Safe At This Time Review of Systems Review of Systems: All systems reviewed & are unremarkable except as noted in HPI & below Physical Exam Constitutional: cooperative, comfortable and + lethargic Eyes: PERRL, conjunctivae normal, anicteric sclerae ENMT: external ear and nose normal, oropharynx normal Neck: trachea midline, no thyromegaly Respiratory: normal respiratory effort, lungs clear to auscultation Cardiovascular: Rate/Rhythm: + irregularly irregular Heart Sounds: normal S1 and normal S2; no murmur Vessels: no JVD Extremities: normal capillary refill; no edema Gastrointestinal (Abdomen): Abdomen is obese and soft and nondistended, tender with light palpation. Bowel sounds normal. There is a midline surgical incision with surgical dressing intact. Skin: no rashes, warm and dry Neurologic: PERRL, EOMI, accommodation nl, no face palsy, no dysarthria Psychiatric: A+Ox3, euthymic affect Genitourinary: Indwelling Mac catheter Results & Data Results & Data ([facility]) Vital Signs (Past 12 Hours) Vital Signs Temp Pulse Pulse Resp BP BP Pulse Ox 12/23/19 01:23 91 H 17 126/63 96 12/23/19 01:20 85 19 95 12/23/19 01:17 92 H 17 121/56 L 97 12/23/19 01:14 91 H 20 98 12/23/19 01:12 37.5 C 70 15 113/48 L 12/22/19 22:17 93 H 20 146/59 H 98 12/22/19 20:54 62 20 136/54 L 94 12/22/19 19:17 37.4 C 72 20 117/62 96 Coding Level of Care Code 02835 Inpt Consult Level 5 Diagnoses Acute appendicitis with generalized peritonitis K35.20 Appendicitis abscess presence: without abscess Appendicitis gangrene presence: unspecified whether gangrene present Appendicitis perforation presence: with perforation Anticoagulated Z79.01 Sepsis A41.9 Acute abdominal pain R10.9 A-fib I48.91 Hypothyroidism associated with surgical procedure E89.0 Acute colitis K52.9 Hiatal hernia K44.9 (1) Acute appendicitis with generalized peritonitis Appendicitis abscess presence: without abscess Appendicitis gangrene presence: unspecified whether gangrene present Appendicitis perforation presence: with perforation Qualified Code(s): K35.20 - Acute appendicitis with generalized peritonitis, without abscess
[2019-12-23] MEDS: PIPERACILLIN/TAZOBACTAM 3.375 GM in DEXTROSE 5% 100 ML IV SCH ×2 (02:04→10:16)
--- NOTE | 2019-12-23 02:11 | Anesthesiology Progress Note ---
Date of Service December 23, 2019 Anesthesia Post Procedure Vital Signs Vital Signs: Temp Pulse Pulse Resp BP BP Pulse Ox 12/23/19 01:40 92 H 16 96 12/23/19 01:34 77 19 119/52 L 95 12/23/19 01:30 78 15 95 12/23/19 01:23 91 H 17 126/63 96 12/23/19 01:20 85 19 95 12/23/19 01:17 92 H 17 121/56 L 97 12/23/19 01:14 91 H 20 98 12/23/19 01:12 37.5 C 70 15 113/48 L 12/22/19 22:17 93 H 20 146/59 H 98 12/22/19 20:54 62 20 136/54 L 94 12/22/19 19:17 37.4 C 72 20 117/62 96 Transfer of Care Handoff Completed per policy Notes Mental Status: alert / awake / arousable and participated in evaluation Patient Amnestic to Procedure: Yes Nausea / Vomiting: adequately controlled Pain: adequately controlled Airway Patency, RR, SpO2: stable & adequate BP & HR: stable & adequate Hydration State: stable & adequate Anesthetic Complications: no major complications apparent
[2019-12-23 03:15] LABS: Appearance Urine Cloudy (Clear); Bacteria Urine Automated Negative (Negative); Bilirubin Urine Negative (Negative); Blood Urine 3+ (Negative); Color Urine Dark Yellow; Epithelial Cell Urine Auto >30 /lpf (0-5); Glucose Urine UA Negative (Negative); Ketones Urine Trace (Negative); Leukocyte Esterase Urine 1+ (Negative); Nitrite Urine Negative (Negative); Protein Urine 2+ (Negative); Specific Gravity Urine 1.024 (1.000-1.030); Urobilinogen Urine Negative (Negative); WBC Urine Automated >30 /hpf (0-5); pH Urine 5.5 (4.5-7.5)
[2019-12-23] MEDS ORDERED: ICU PROTOCOL FOR HYPERGLYCEMIA PRN (03:18)
[2019-12-23 03:55] LABS: Basophils # (auto) 0.01 K/uL (0-0.2); Basophils % (auto) 0.1 %; Hematocrit (blood only) 42.4 % (37-47); Hemoglobin 14.3 g/dL (12.0-16.0); Immature Granulocytes # (auto) 0.02 K/uL (0.00-0.02); Immature Granulocytes % (auto) 0.2 %; Lymphocytes # (auto) 0.71 K/uL (1.2-3.4); Lymphocytes % (auto) 5.9 %; Mean Corpuscular Hemoglobin 29.8 pg (25-34); Mean Corpuscular Hgb Conc 33.7 g/dL (32-36); Mean Corpuscular Volume 88.3 fL (80-100); Mean Platelet Volume 10.5 fL (7.4-10.4); Monocytes # (auto) 1.32 K/uL (0.11-0.59); Monocytes % (auto) 10.9 %; Neutrophils # (auto) 10.03 K/uL (1.4-6.5); Neutrophils % (auto) 82.9 %; Platelet Count 123 K/uL (130-400); RDW Coefficient of Variation 13.6 % (11.5-14.5); RDW Standard Deviation 44.4 fL (36.4-46.3); White Blood Count 12.09 K/uL (4.8-10.8)
[2019-12-23 04:13] LABS: Albumin Level 2.7 gm/dl (3.4-5.0); BUN Creatinine Ratio 18.5 (10-20); Creatinine Clr Calc Pharmacy 59.6 ml/min; Est GFR (African American) 76.1; Est GFR (Non-African American) 65.6; Magnesium 1.7 mg/dl (1.8-2.4); Potassium 3.2 mmol/L (3.5-5.1)
[2019-12-23 04:15] LABS: Albumin Globulin Ratio 0.8 (0.9-2); Bilirubin,Total 1.3 mg/dl (0.2-1); Globulin 3.3 gm/dl (2.5-4.0); Phosphorus 2.4 mg/dl (2.5-4.9)
[2019-12-23] MEDS: MAGNESIUM SULFATE / D5W 1 GM/100 ML BAG IV SCH ×2 (05:07→06:57)
[2019-12-23] MEDS: POTASSIUM CHLORIDE / WTR 10 MEQ/100 ML PLCT IV SCH ×4 (05:07→07:44)
[2019-12-23] MEDS: LEVOTHYROXINE SODIUM 88 MCG TABLET PO SCH (06:03)
--- NOTE | 2019-12-23 06:24 | Operative Report (OR) ---
DATE OF OPERATION: 12/23/2019 PREOPERATIVE DIAGNOSIS: Acute appendicitis. POSTOPERATIVE DIAGNOSIS: Acute appendicitis, gangrene and perforation. PROCEDURE: Laparoscopy converted to open appendectomy. SURGEON: Stalin Reyes MD. ANESTHESIA: General. ESTIMATED BLOOD LOSS: About 10 mL FINDINGS: Acute appendicitis with gangrene and perforation, peritonitis. COMPLICATIONS: None. INDICATIONS FOR THE PROCEDURE: This is an 79-year-old female who presented to the ED with 2-day history of lower abdominal pain and the patient had a CT scan diagnosis of acute appendicitis with mild bowel malrotation. The appendix is located low in the left lower quadrant area. Once I reviewed the patient's medical history and physical exam and our labs and CT scan with the patient and the , I recommended to do the laparoscopic appendectomy, possible open. I did talk to the patient and patient's about the benefits, the risks, alternate procedures. I indicated the risks may include but not limited such as bleeding, infection, abscess, sepsis, injury to the bowel, myocardial infarction, DVT, stroke, incisional hernia, even . They understood. The patient signed informed consent and I answered all questions. DETAILS OF PROCEDURE: We brought in the patient to the OR and put the patient in the supine position. The patient received SCDs on bilateral legs to prevent DVT and also the patient received 3.375 grams Zosyn IV for prophylactic antibiotic. The patient received general anesthesia without difficulty. Also, patient received Mac catheter insertion. The abdomen was prepped and draped in routine sterile fashion. After timeout, I injected local anesthesia by using 1% lidocaine mixed with 0.5% Marcaine. I made a small incision just above umbilicus, opened fascia and opened peritoneum under direct vision, put a Mee trocar in, connected to CO2 to create pneumoperitoneum. Flow rate is 6 liter per minute. Pressure not more than 14 mmHg. Then we looked at the abdomen , there is some inflammation lower abdomen area, then 2- 5 mm trocars insertion on the right lower quadrant area and then we mobilized the small bowel. Then we found the patient had significant acute appendicitis with gangrene and perforation. All the appendix showed dark color and with perforation, and at this moment we decided to convert to open because the appendix located on lower abdomen in the left lower quadrant area and the patient has mild rotation of bowel. So then I made a low midline incision and removed the old scar on the midline and got in the abdomen without difficulty. Then we removed all trocar at this moment. Then again we found the patient had significant gangrenous appendix with perforation. There was some stool leak from the perforated appendix, we suctioned. Then we made a window on the base between the appendiceal and the appendix. Then we passed the Endo-IRMA stapler 45 mm passed on the base of the appendix, stapled, transection of the appendix on the base, and then I used the harmonic to take down appendiceal, rechecked, no active bleeding, and at this moment we used 1 liter warm normal saline with 1 g vancomycin and flushed the abdominal cavity. Then we suctioned all the flow. Decided to put one 10 mm flat ELIZABETH drain through the 5 mm trocar incision. Then we used 0 nylon to fix the ELIZABETH drain on the skin. The drainage is located in the pelvic area. We also suctioned all the pelvic floor. Then hemostasis was obtained. Then I closed the fascial layer by using #1 PDS continuous running, closed subcutaneous layer by using 2-0 Vicryl continuous running, closed skin by using staple and closed the umbilical incision trocar site fascial layer by using #1 Vicryl [id number] x2, closed subcutaneous layer by using 2-0 Vicryl interruptedly, closed skin by using staple and closed another two 5 mm trocar sites skin only by using staple. Then we put the dressing on. The patient tolerated the procedure well. All instrument, needle, and sponge count were correct x2 at the end of the case. The patient transferred to recovery room and admitted to the ICU in stable condition. The specimen sent to pathology. After the procedure, I did call the patient's on the phone to inform her about the OR finding and procedure we did, and admitted the patient to the ICU. He understands. I attest to the content of the Intraoperative Record and any orders documented therein. Any exceptions are noted below. CRISTI
[2019-12-23] MEDS ORDERED: fentaNYL citrate 100 MCG/2 ML VIAL IV PRN (07:02)
--- NOTE | 2019-12-23 07:16 | Surgery Progress Note ---
Date of Service S/P open appendectomy, POD 6 hours pt is doing fine, no significant abdominal pain, no nausea, no vomiting, ELIZABETH 110ml December 23, 2019 Assessment & Plan (1) Acute abdominal pain: pt is a 79 year-old female who presents to ER with 2 days history lower abdominal pain with nausea and vomiting, fever, WBC 21,000 CT scan- acute appendicitis, diameter 1.8cm, mal-bowel rotation, IMP: acute abdominal pain, acute appendicitis, sepsis, plan, I recommend to do laparoscopic appendectomy, possible open, D/W benefits, risks and alternatives of the surgery, the risks - infection may higher than normal people base on pt is Eliquis, last dose was this morning, pt hold her evening dose, others risks including but not limit such as : infection, abscess, sepsis, NC, injury other organs, stroke, DVT and , pt and her understood, they agree with the surgery. I answered all questions, pre-op iv antibiotic, 12/23/2019 7:18am S/P appendectomy, doing better, transfer to out of ICU, D/C [place] clear diet tomorrow, continue iv antibiotic, OOB consult hospitalist for co-manage I will be off for 2 weeks, Dr Yañez will cover thanks, (2) Acute appendicitis with generalized peritonitis: (3) Sepsis: Admission and Anticipated Discharge Date Admission Date: December 23, 2019 Review of Systems Constitutional: as per Subjective / HPI Eyes: as per Subjective / HPI Ear, Nose, Mouth, Throat: as per Subjective / HPI Respiratory: as per Subjective / HPI Cardiovascular: as per Subjective / HPI Additional Comments: A-fib Gastrointestinal: as per Subjective / HPI Genitourinary: as per Subjective / HPI Breast cancer Musculoskeletal: as per Subjective / HPI Integumentary: as per Subjective / HPI Neurologic: as per Subjective / HPI Psychiatric: as per Subjective / HPI Endocrine: as per Subjective / HPI Hematologic / Lymphatic: as per Subjective / HPI lymphoma 2011 Allergy / Immunological: as per Subjective / HPI Physical Exam Constitutional: WD/WN, vitals as above well developed and well nourished Eyes: PERRL, conjunctivae normal, anicteric sclerae ENMT: external ear and nose normal, oropharynx normal Neck: trachea midline, no thyromegaly Respiratory: normal respiratory effort, lungs clear to auscultation Cardiovascular: Heart Sounds: normal S1 and normal S2 Gastrointestinal (Abdomen): Percussion/Palpation: abdomen soft mild tenderness at lower abdomen, no distend, BS + Musculoskeletal: no cyanosis or clubbing, extremities motor strength 5/5 Skin: no rashes, warm and dry Neurologic: patellar DTR's 2+ bilat, sensation intact Psychiatric: Orientation: alert and oriented x 3 Results & Data ([facility]) Vital Signs (Past 12 Hours) Vital Signs Temp Pulse Pulse Resp BP BP Pulse Ox 12/23/19 06:14 64 14 95/51 L 98 12/23/19 06:00 60 20 98 12/23/19 05:44 71 21 109/56 L 97 12/23/19 05:30 92 H 21 97 12/23/19 05:14 91 H 20 94/65 L 97 12/23/19 05:00 90 24 97 12/23/19 04:43 60 21 101/51 L 97 12/23/19 04:30 60 19 96 12/23/19 04:14 93 H 20 110/41 L 97 12/23/19 04:00 37.8 C H 91 H 20 97 12/23/19 03:43 92 H 17 111/46 L 97 12/23/19 03:30 90 18 96 12/23/19 03:13 87 19 92/48 L 96 12/23/19 03:00 90 20 94 12/23/19 02:44 80 17 91/42 L 94 12/23/19 02:30 90 17 95 12/23/19 02:00 90 18 109/59 L 97 12/23/19 01:43 36.8 C 91 H 20 119/52 L 94 12/23/19 01:40 92 H 16 96 12/23/19 01:34 77 19 119/52 L 95 12/23/19 01:30 78 15 95 12/23/19 01:23 91 H 17 126/63 96 12/23/19 01:20 85 19 95 12/23/19 01:17 92 H 17 121/56 L 97 12/23/19 01:14 91 H 20 98 12/23/19 01:12 37.5 C 70 15 113/48 L 12/22/19 22:17 93 H 20 146/59 H 98 12/22/19 20:54 62 20 136/54 L 94 12/22/19 19:17 37.4 C 72 20 117/62 96 Pulse Ox 12/23/19 06:14 12/23/19 06:00 12/23/19 05:44 12/23/19 05:30 12/23/19 05:14 12/23/19 05:00 12/23/19 04:43 12/23/19 04:30 12/23/19 04:14 12/23/19 04:00 12/23/19 03:43 12/23/19 03:30 12/23/19 03:13 12/23/19 03:00 12/23/19 02:44 12/23/19 02:30 12/23/19 02:00 96 12/23/19 01:43 12/23/19 01:40 12/23/19 01:34 12/23/19 01:30 12/23/19 01:23 12/23/19 01:20 12/23/19 01:17 12/23/19 01:14 12/23/19 01:12 12/22/19 22:17 12/22/19 20:54 12/22/19 19:17 (1) Acute appendicitis with generalized peritonitis Appendicitis abscess presence: without abscess Appendicitis gangrene presence: unspecified whether gangrene present Appendicitis perforation presence: with perforation Qualified Code(s): K35.20 - Acute appendicitis with generalized peritonitis, without abscess
[2019-12-23] MEDS ORDERED: ACETAMINOPHEN 325 MG TAB PO PRN (07:32)
[2019-12-23] MEDS: SOTALOL HCL 80 MG TAB PO SCH ×3 (07:42→21:26)
[2019-12-23] MEDS: FAMOTIDINE 20 MG TAB PO SCH ×3 (07:42→21:26)
[2019-12-23] MEDS: POTASSIUM CHLORIDE 10 MEQ TABCR PO SCH (07:42)
[2019-12-23] MEDS: LETROZOLE 2.5 MG TAB PO SCH (07:43)
[2019-12-23] MEDS: ENOXAPARIN INJ 30 MG/0.3 ML SYR SQ SCH (07:43)
[2019-12-23] MEDS: CETIRIZINE HCL 10 MG TABLET PO SCH (07:43)
--- NOTE | 2019-12-23 07:44 | CT Scan Report ---
CT SCAN OF THE ABDOMEN AND PELVIS WITHOUT IV CONTRAST CLINICAL HISTORY: Left lower quadrant abdominal pain. Nausea and vomiting. COMPARISON STUDY: PET/CT dated 11/26/2012. TECHNIQUE: CT scan of the abdomen and pelvis is performed from the lung bases to the proximal femora. Images are reviewed in the axial, sagittal, and coronal planes. IV contrast was not administered for this examination as per the referring clinician. Note that the examination was performed in signific antly suboptimal fashion without oral and IV contrast. A dose lowering technique was utilized adherin g to the principles of ALARA. CT DOSE: 800.63 mGy.cm FINDINGS: Lung bases: The heart is normal in size and without pericardial effusion. Pacemaker leads are noted. The lung bases are clear noting bibasilar scarring/atelectasis. There is a moderate to large hiatal h ernia. Liver: The unenhanced liver is normal in size and contour. The liver demonstrates diffusely diminishe d attenuation consistent with hepatic steatosis. There is no intrahepatic biliary ductal dilatation. Gallbladder: Unremarkable. Spleen: Normal in size and attenuation. Pancreas: Unremarkable. Adrenal glands: Unremarkable. Kidneys: The unenhanced kidneys demonstrate mild cortical atrophy and are without hydronephrosis. The re are no renal calculi identified. There is no evidence of contour deforming renal mass lesion. Abdominal vasculature: The abdominal aorta is normal in course and caliber noting scattered foci of a therosclerotic calcification. Bowel: The duodenum does not cross midline indicating malrotation of the bowel. The cecum is located in the pelvic midline. The appendix is markedly distended and fluid-filled measuring up to 1.5 cm in diameter as seen on image #[id number]. A large calcified appendicolith is also seen on this image. There is periappendiceal inflammation and fluid, and the appearance is consistent with acute appendicitis. Mil d wall thickening of the adjacent bowel loops and colon is likely reactive. There is no bowel obstruc tion. Peritoneum: No intraperitoneal free air is seen. There is trace free fluid in the pelvis. There is a small fat-containing umbilical hernia. Lymphadenopathy: None. Pelvic viscera: A small focus of gas is noted in the bladder lumen and may be related to instrumentat ion. The bladder is decompressed and otherwise grossly unremarkable. The uterus and adnexa are normal as visualized. Skeletal structures: The skeletal structures are osteopenic. There is moderate lumbosacral spondylosi s. No lytic or blastic lesions are seen. IMPRESSION: 1. Findings are consistent with severe acute appendicitis. No organized fluid collection is seen to s uggest abscess. 2. Wall thickening and inflammatory change involving adjacent bowel loops is likely on a reactive bas is. 3. There is a small volume of free fluid in the pelvis. 4. Hepatic steatosis. 5. Moderate hiatal hernia. 6. 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 7. Additional findings as above. ACT 112: Negative or not required by law. Electronically signed by: Yordan Craven M.D. 12/23/2019 7:43 AM
--- NOTE | 2019-12-23 08:14 | Anesthesiology Progress Note ---
Date of Service December 23, 2019 Anesthesia Post Procedure Vital Signs Vital Signs: Temp Pulse Pulse Resp BP BP Pulse Ox 12/23/19 06:14 64 14 95/51 L 98 12/23/19 06:00 60 20 98 12/23/19 05:44 71 21 109/56 L 97 12/23/19 05:30 92 H 21 97 12/23/19 05:14 91 H 20 94/65 L 97 12/23/19 05:00 90 24 97 12/23/19 04:43 60 21 101/51 L 97 12/23/19 04:30 60 19 96 12/23/19 04:14 93 H 20 110/41 L 97 12/23/19 04:00 37.8 C H 91 H 20 97 12/23/19 03:43 92 H 17 111/46 L 97 12/23/19 03:30 90 18 96 12/23/19 03:13 87 19 92/48 L 96 12/23/19 03:00 90 20 94 12/23/19 02:44 80 17 91/42 L 94 12/23/19 02:30 90 17 95 12/23/19 02:00 90 18 109/59 L 97 12/23/19 01:43 36.8 C 91 H 20 119/52 L 94 12/23/19 01:40 92 H 16 96 12/23/19 01:34 77 19 119/52 L 95 12/23/19 01:30 78 15 95 12/23/19 01:23 91 H 17 126/63 96 12/23/19 01:20 85 19 95 12/23/19 01:17 92 H 17 121/56 L 97 12/23/19 01:14 91 H 20 98 12/23/19 01:12 37.5 C 70 15 113/48 L 12/22/19 22:17 93 H 20 146/59 H 98 12/22/19 20:54 62 20 136/54 L 94 12/22/19 19:17 37.4 C 72 20 117/62 96 Pulse Ox 12/23/19 06:14 12/23/19 06:00 12/23/19 05:44 12/23/19 05:30 12/23/19 05:14 12/23/19 05:00 12/23/19 04:43 12/23/19 04:30 12/23/19 04:14 12/23/19 04:00 12/23/19 03:43 12/23/19 03:30 12/23/19 03:13 12/23/19 03:00 12/23/19 02:44 12/23/19 02:30 12/23/19 02:00 96 12/23/19 01:43 12/23/19 01:40 12/23/19 01:34 12/23/19 01:30 12/23/19 01:23 12/23/19 01:20 12/23/19 01:17 12/23/19 01:14 12/23/19 01:12 12/22/19 22:17 12/22/19 20:54 12/22/19 19:17 Pain Intensity Abdomen: Pain Intensity: 2 Notes Mental Status: alert / awake / arousable Patient Amnestic to Procedure: Yes Nausea / Vomiting: adequately controlled Pain: adequately controlled Airway Patency, RR, SpO2: stable & adequate BP & HR: stable & adequate Hydration State: stable & adequate Anesthetic Complications: no major complications apparent and Pt Satisfied with anesthetic care
[2019-12-23] MEDS ORDERED: TRIAMTERENE/HCTZ 37.5/25MG TAB PO SCH (09:00)
[2019-12-23] MEDS ORDERED: AMLODIPINE BESYLATE 5 MG TAB PO SCH (09:00)
--- NOTE | 2019-12-23 09:26 | Consultation ---
Date of Consultation December 23, 2019 Assessment & Plan (1) Acute appendicitis with perforation, generalized peritonitis, and gangrene: Management per general surgery. Diet advancement, pain control, DVT proph per surgery. Cont IV zosyn. Follow blood cultures. (2) Sepsis: 2nd to appendicitis with perforation/gangrene. IVF. IV antibiotics. Follow blood cultures. BPs stable this am. Did not need pressor support overnight. BMP am. (3) PAF (paroxysmal atrial fibrillation): History of such. Continue sotalol. Eliquis on hold - resume in the future when ok with gen surgery. Continue telemetry monitoring. Replace low K and low mag. (4) Abnormal urinalysis: ?UTI. Zosyn will cover. Follow urine culture. (5) Hypokalemia: Replaced per ICU protocol. Will add KCL to basal fluids. BMP am. (6) Hypomagnesemia: replaced per ICU protocol. mag level am. 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 Never has had difficulties due to such. (8) Hypothyroid: TSH 04/2019 wnl. Cont synthroid. (9) Hypertension: Due to sepsis will hold HCTZ and amlodipine. (10) DVT prophylaxis: lovenox 30mg daily Thank you for the consult. Will follow with you. History of Present Illness Requesting Physician: Stalin Reyes MD Reason for Consultation: post-op medical management Attending Physician: Stalin Reyes MD History of Present Illness Very pleasant 79yo female with PAF on chronic sotalol & eliquis, HTN, and hypothyroidism who presented with severe abdominal pain, nausea, emesis, and diarrhea along with low-grade fever. CT abd/pelvis at ER presentation showed acute appendicitis with probable perforation. Dr Reyes was consulted from the ER and urgently took her to the OR last evening where she had intra-op evidence of acute appendicitis with gangrene, perforation, and peritonitis. She received broad-spectrum IV antibiotics since, and was admitted to the ICU overnight for close observation. Fortunately she has remained hemodynamically stable and is ready for transfer from the ICU. During my initial assessment her only complaints were that of dry mouth, abdominal pain, and fatigue. No nausea or emesis. Allergies Allergy/AdvReac Type Severity Reaction Status Date / Time adhesive Allergy Unknown Skin Verified 12/22/19 22:10 irritation;Skin very sensitive; allantoin Allergy Unknown Skin very Verified 12/22/19 22:10 sensitive; aloe Allergy Unknown Skin very Verified 12/22/19 22:10 sensitive; edetic acid Allergy Unknown Skin very Verified 12/22/19 22:10 sensitive; glycerin Allergy Unknown Skin very Verified 12/22/19 22:10 sensitive; lanolin Allergy Unknown Skin very Verified 12/22/19 22:10 sensitive; trolamine salicylate Allergy Unknown Skin very Verified 12/22/19 22:10 sensitive; vitamin A Allergy Unknown Skin very Verified 12/22/19 22:10 sensitive; Stearic Acid Allergy Unknown Skin very Uncoded 12/22/19 22:10 sensitive; Home Medications Home Medications Medication Instructions Recorded Confirmed Type amlodipine [Norvasc] 2.5 mg PO DAILY 12/22/19 12/22/19 History apixaban [Eliquis] 5 mg PO BID 12/22/19 12/22/19 History cetirizine 10 mg PO DAILY 12/22/19 12/22/19 History famotidine 20 mg PO BID 12/22/19 12/22/19 History fluticasone propionate [Flonase 2 spray INTRANASAL DAILY PRN 12/22/19 12/22/19 History Allergy Relief] letrozole [Femara] 2.5 mg PO DAILY 12/22/19 12/22/19 History levothyroxine [Synthroid] 88 mcg PO DAILY 12/22/19 12/22/19 History potassium chloride 10 meq PO DAILY 12/22/19 12/22/19 History sotalol 80 mg PO BID 12/22/19 12/22/19 History triamterene-hydrochlorothiazid 1 tab PO DAILY 12/22/19 12/22/19 History [Maxzide-25mg] zolpidem [Ambien] 5 mg PO HS 12/22/19 12/22/19 History Patient History Medical History (Updated 12/23/19 @ 10:07 by Clint Valdes) Atrial fibrillation Breast cancer Fracture of left ankle H/O head and neck radiation History of cardioversion Hypertension Hypothyroid Lymphoma Thyroid tumor, benign Surgical History (Updated 12/23/19 @ 09:54 by Clint Valdes) H/O partial thyroidectomy History of section History of partial mastectomy of left breast S/P appendectomy w/ perforation/gangrene. open - 12/22/2019 - Stalin Reyes MD S/P cataract extraction bilateral Family History (Updated 12/23/19 @ 09:54 by Clint Valdes) Mother , age 86 Alzheimer disease Father , 87 Stroke Social History (Updated 12/23/19 @ 09:55 by Clint Valdes) Smoking Status: Never smoker Second Hand Exposure: No; Do You Dip or Chew Tobacco: No; Tobacco Cessation Education Requested by Patient: No Hx Alcohol Use: No Hx Substance Use: No Preferred Language: Tanzanian Communication Ability: Effective Band Attacher Required: No Beliefs That Will Affect Care: None marital status: Current Living Situation: Spouse Current Living Situation Comment: independent living/[facility] current occupational status: retired current occupation: former speech therapist How many Children do You have: 3 Other Information That Helps Us Care for You: No Feels Safe at Home: Yes Safety Concerns: Feels Safe At This Time Review of Systems Constitutional: + fatigue; no fever and no chills Ear, Nose, Mouth, Throat: no nasal congestion, no sore throat and no dysphagia Respiratory: no cough and no dyspnea Cardiovascular: no chest pain and no edema Gastrointestinal: + abdominal pain; no nausea and no vomiting Genitourinary: no dysuria Musculoskeletal: no joint pain Integumentary: no rash Neurologic: no loss of sensation Endocrine: denies diabetes Physical Exam Constitutional: well developed and well nourished; no acute distress and no altered mental status Eyes: PERRL (lens implants b/l ) ENMT: Ears: no external ear abnormality Mouth: + dry oral mucous membranes; no oropharynx abnormality Neck: normal visual inspection (thyroidectomy scar lower neck ) Respiratory: normal respiratory effort, lungs clear to auscultation Cardiovascular: Rate/Rhythm: regular rate and regular rhythm Heart Sounds: normal S1 and normal S2; no murmur Vessels: posterior tibial pulses present and dorsalis pedis pulses present; no JVD Extremities: no edema Gastrointestinal (Abdomen): Inspection/Auscultation: + abdomen distended; + abnormal bowel sounds (decreased) Percussion/Palpation: + abdomen tender (incisional ); no guarding and no hepatosplenomegaly Musculoskeletal: no cyanosis or clubbing, extremities motor strength 5/5 Skin: abdominal wall dressings intact Neurologic: deep tendon reflexes 2+ bilaterally and moves all extremities Psychiatric: A+Ox3, euthymic affect Lymphatic: no cervical lymphadenopathy Results & Data ([facility]) Vital Signs (Past 12 Hours) Vital Signs Temp Pulse Pulse Resp BP BP Pulse Ox 12/23/19 06:14 64 14 95/51 L 98 12/23/19 06:00 60 20 98 12/23/19 05:44 71 21 109/56 L 97 12/23/19 05:30 92 H 21 97 12/23/19 05:14 91 H 20 94/65 L 97 12/23/19 05:00 90 24 97 12/23/19 04:43 60 21 101/51 L 97 12/23/19 04:30 60 19 96 12/23/19 04:14 93 H 20 110/41 L 97 12/23/19 04:00 37.8 C H 91 H 20 97 12/23/19 03:43 92 H 17 111/46 L 97 12/23/19 03:30 90 18 96 12/23/19 03:13 87 19 92/48 L 96 12/23/19 03:00 90 20 94 12/23/19 02:44 80 17 91/42 L 94 12/23/19 02:30 90 17 95 12/23/19 02:00 90 18 109/59 L 97 12/23/19 01:43 36.8 C 91 H 20 119/52 L 94 12/23/19 01:40 92 H 16 96 12/23/19 01:34 77 19 119/52 L 95 12/23/19 01:30 78 15 95 12/23/19 01:23 91 H 17 126/63 96 12/23/19 01:20 85 19 95 12/23/19 01:17 92 H 17 121/56 L 97 12/23/19 01:14 91 H 20 98 12/23/19 01:12 37.5 C 70 15 113/48 L 12/22/19 22:17 93 H 20 146/59 H 98 Pulse Ox 12/23/19 06:14 12/23/19 06:00 12/23/19 05:44 12/23/19 05:30 12/23/19 05:14 12/23/19 05:00 12/23/19 04:43 12/23/19 04:30 12/23/19 04:14 12/23/19 04:00 12/23/19 03:43 12/23/19 03:30 12/23/19 03:13 12/23/19 03:00 12/23/19 02:44 12/23/19 02:30 12/23/19 02:00 96 12/23/19 01:43 12/23/19 01:40 12/23/19 01:34 12/23/19 01:30 12/23/19 01:23 12/23/19 01:20 12/23/19 01:17 12/23/19 01:14 12/23/19 01:12 12/22/19 22:17 Laboratory Results Laboratory Results - last 24 hr 12/22/19 12/22/19 12/22/19 21:20 21:20 21:30 WBC 21.22 H RBC 4.94 Hgb 14.8 Hct 44.0 MCV 89.1 MCH 30.0 MCHC 33.6 RDW Std Deviation 44.3 RDW Coeff of Ken 13.6 Plt Count 145 MPV 10.6 H Immature Gran % (Auto) 0.3 Neut % (Auto) 82.7 Lymph % (Auto) 11.2 [place] % (Auto) 5.7 Eos % (Auto) 0.0 Baso % (Auto) 0.1 Neut # (Auto) 17.54 H Lymph # (Auto) 2.38 [place] # (Auto) 1.21 H Eos # (Auto) 0.00 Baso # (Auto) 0.02 Immature Gran # (Auto) 0.07 H PT 11.8 INR 1.1 APTT 31.7 H PTT Ratio 1.1 Sodium 137 Potassium 3.5 Chloride 104 Carbon Dioxide 25 Anion Gap 8.0 BUN 17 Creatinine 1.00 Est Cr Clr Drug Dosing 49.7 Est GFR ( Amer) 61.6 Est GFR (Non-Af Amer) 53.2 BUN/Creatinine Ratio 16.6 Glucose 128 H Lactate Calcium 9.1 Phosphorus Magnesium Total Bilirubin 1.2 H AST 24 ALT 19 Alkaline Phosphatase 56 Total Protein 6.9 Albumin 3.2 L Globulin 3.7 Albumin/Globulin Ratio 0.9 Lipase 66 L Urine Color Urine Appearance Urine pH Ur Specific [place] Urine Protein Urine Glucose (UA) Urine Ketones Urine Blood Urine Nitrite Urine Bilirubin Urine Urobilinogen Ur Leukocyte Esterase Urine WBC (Auto) Urine RBC (Auto) U Hyaline Cast (Auto) U Epithel Cells (Auto) Urine Bacteria (Auto) Ur Renal Epithelial Cell Granular Casts Urine Yeast Nasal Screen MRSA (PCR) COVID-19 Eval Order SARS-CoV-2, RNA, NAAT 12/22/19 12/22/19 12/23/19 21:57 21:57 02:00 WBC RBC Hgb Hct MCV MCH MCHC RDW Std Deviation RDW Coeff of Ken Plt Count MPV Immature Gran % (Auto) Neut % (Auto) Lymph % (Auto) [place] % (Auto) Eos % (Auto) Baso % (Auto) Neut # (Auto) Lymph # (Auto) [place] # (Auto) Eos # (Auto) Baso # (Auto) Immature Gran # (Auto) PT INR APTT PTT Ratio Sodium Potassium Chloride Carbon Dioxide Anion Gap BUN Creatinine Est Cr Clr Drug Dosing Est GFR ( Amer) Est GFR (Non-Af Amer) BUN/Creatinine Ratio Glucose Lactate Calcium Phosphorus Magnesium Total Bilirubin AST ALT Alkaline Phosphatase Total Protein Albumin Globulin Albumin/Globulin Ratio Lipase Urine Color Urine Appearance Urine pH Ur Specific [place] Urine Protein Urine Glucose (UA) Urine Ketones Urine Blood Urine Nitrite Urine Bilirubin Urine Urobilinogen Ur Leukocyte Esterase Urine WBC (Auto) Urine RBC (Auto) U Hyaline Cast (Auto) U Epithel Cells (Auto) Urine Bacteria (Auto) Ur Renal Epithelial Cell Granular Casts Urine Yeast Nasal Screen MRSA (PCR) Negative COVID-19 Eval Order Covid19 [facility] SARS-CoV-2, RNA, NAAT NEGATIVE 12/23/19 12/23/19 12/23/19 02:30 03:21 03:34 WBC RBC Hgb Hct MCV MCH MCHC RDW Std Deviation RDW Coeff of Ken Plt Count MPV Immature Gran % (Auto) Neut % (Auto) Lymph % (Auto) [place] % (Auto) Eos % (Auto) Baso % (Auto) Neut # (Auto) Lymph # (Auto) [place] # (Auto) Eos # (Auto) Baso # (Auto) Immature Gran # (Auto) PT INR APTT PTT Ratio Sodium 139 Potassium 3.2 L Chloride 107 Carbon Dioxide 23 Anion Gap 9.0 BUN 16 Creatinine 0.84 Est Cr Clr Drug Dosing 59.6 Est GFR ( Amer) 76.1 Est GFR (Non-Af Amer) 65.6 BUN/Creatinine Ratio 18.5 Glucose 137 H Lactate 1.5 Calcium 8.0 L Phosphorus 2.4 L Magnesium 1.7 L Total Bilirubin 1.3 H AST 26 ALT 21 Alkaline Phosphatase 45 Total Protein 6.0 L Albumin 2.7 L Globulin 3.3 Albumin/Globulin Ratio 0.8 L Lipase Urine Color Dark Yellow Urine Appearance Cloudy A Urine pH 5.5 Ur Specific [place] 1.024 Urine Protein 2+ H Urine Glucose (UA) Negative Urine Ketones Trace H Urine Blood 3+ H Urine Nitrite Negative Urine Bilirubin Negative Urine Urobilinogen Negative Ur Leukocyte Esterase 1+ H Urine WBC (Auto) >30 H Urine RBC (Auto) 10-30 H U Hyaline Cast (Auto) 5-10 H U Epithel Cells (Auto) >30 H Urine Bacteria (Auto) Negative Ur Renal Epithelial Cell Not Reportable Granular Casts 1-5 H Urine Yeast Not Reportable Nasal Screen MRSA (PCR) COVID-19 Eval Order SARS-CoV-2, RNA, NAAT 12/23/19 03:34 WBC 12.09 H RBC 4.80 Hgb 14.3 Hct 42.4 MCV 88.3 MCH 29.8 MCHC 33.7 RDW Std Deviation 44.4 RDW Coeff of Ken 13.6 Plt Count 123 L MPV 10.5 H Immature Gran % (Auto) 0.2 Neut % (Auto) 82.9 Lymph % (Auto) 5.9 [place] % (Auto) 10.9 Eos % (Auto) 0.0 Baso % (Auto) 0.1 Neut # (Auto) 10.03 H Lymph # (Auto) 0.71 L [place] # (Auto) 1.32 H Eos # (Auto) 0.00 Baso # (Auto) 0.01 Immature Gran # (Auto) 0.02 PT INR APTT PTT Ratio Sodium Potassium Chloride Carbon Dioxide Anion Gap BUN Creatinine Est Cr Clr Drug Dosing Est GFR ( Amer) Est GFR (Non-Af Amer) BUN/Creatinine Ratio Glucose Lactate Calcium Phosphorus Magnesium Total Bilirubin AST ALT Alkaline Phosphatase Total Protein Albumin Globulin Albumin/Globulin Ratio Lipase Urine Color Urine Appearance Urine pH Ur Specific [place] Urine Protein Urine Glucose (UA) Urine Ketones Urine Blood Urine Nitrite Urine Bilirubin Urine Urobilinogen Ur Leukocyte Esterase Urine WBC (Auto) Urine RBC (Auto) U Hyaline Cast (Auto) U Epithel Cells (Auto) Urine Bacteria (Auto) Ur Renal Epithelial Cell Granular Casts Urine Yeast Nasal Screen MRSA (PCR) COVID-19 Eval Order SARS-CoV-2, RNA, NAAT Diagnostic Findings 1. COVID-[address] abd/pelvis - IMPRESSION: 1. Findings are consistent with severe acute appendicitis. No organized fluid collection is seen to suggest abscess. 2. Wall thickening and inflammatory change involving adjacent bowel loops is likely on a reactive basis. 3. There is a small volume of free fluid in the pelvis. 4. Hepatic steatosis. 5. Moderate hiatal hernia. 6. 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 3. EKG - my reading - sinus tach, first degree AV block, mildly prolonged QTc, anterior ST depression (1mm) PG Care Time/CCT Total # of Minutes Spent Total Time Spent with Patient: Total time spent is greater than 50% in coordination of care (as documented) at patient's floor/unit and/or counseling patient: Coding Level of Care Code 79357 Subseq Hosp Care Lvl 3 Diagnoses Acute appendicitis with perforation, generalized peritonitis, and gangrene K35.20 Appendicitis abscess presence: without abscess Sepsis A41.9 Sepsis type: sepsis due to unspecified organism Sepsis acute organ dysfunction status: unspecified PAF (paroxysmal atrial fibrillation) I48.0 Abnormal urinalysis R82.90 Hypokalemia E87.6 Hypomagnesemia E83.42 Malrotation of intestine Q43.3 Hypothyroid E89.0 Hypothyroidism type: postoperative Hypertension I10 Hypertension type: essential hypertension DVT prophylaxis Z29.9 (1) Acute appendicitis with perforation, generalized peritonitis, and gangrene Appendicitis abscess presence: without abscess Qualified Code(s): K35.20 - Acute appendicitis with generalized peritonitis, without abscess (2) Sepsis Sepsis type: sepsis due to unspecified organism Sepsis acute organ dysfunction status: unspecified Qualified Code(s): A41.9 - Sepsis, unspecified organism (3) Hypothyroid Hypothyroidism type: postoperative Qualified Code(s): E89.0 - Postprocedural hypothyroidism (4) Hypertension Hypertension type: essential hypertension Qualified Code(s): I10 - Essential (primary) hypertension
[2019-12-23] MEDS ORDERED: PIPERACILLIN/TAZOBACTAM 3.375 GM in DEXTROSE 5% 100 ML IV SCH (10:30)
[2019-12-23] MEDS: POTASSIUM CHLORIDE 20 MEQ in LACTATED RINGER'S 1,000 ML IV SCH (10:53)
[2019-12-23] MEDS ORDERED: PANTOprazole 40 MG in SYRINGE 0 ML IV SCH (11:00)
[2019-12-23] MEDS: metroNIDAZOLE 500 MG/100 ML BAG IV SCH ×2 (11:45→20:23)
[2019-12-23] MEDS: cefTRIAXone SODIUM 2,000 MG in DEXTROSE 5% 50 ML IV SCH (11:45)
--- NOTE | 2019-12-23 12:06 | Communication Note ---
Date of Service: December 23, 2019 Cardiac: - EKG 12/21 with QTc of 487 - on multiple QT prolonging agents at home - ordered repeat EKG GI: - discontinued IV Protonix in favor of home Pepcid 20mg BID ID: - de-escalated Zosyn to Ceftriaxone and Flagyl for four days per Surgical Infection Society recommendations for mild to moderate severity Acute Appendicitis with perforation; given source control, following appendectomy without systemic features Patient doing well stable for downgrade out of ICU Coding Level of Care Code None
[2019-12-23] MEDS: ZOLPIDEM TARTRATE 5 MG TAB PO SCH ×2 (20:35→21:26)
[2019-12-24] MEDS: POTASSIUM CHLORIDE 20 MEQ in LACTATED RINGER'S 1,000 ML IV SCH ×3 (00:43→17:10)
[2019-12-24] MEDS: metroNIDAZOLE 500 MG/100 ML BAG IV SCH ×3 (03:40→19:06)
[2019-12-24] MEDS: LEVOTHYROXINE SODIUM 88 MCG TABLET PO SCH (05:39)
--- NOTE | 2019-12-24 06:47 | Electrocardiogram Report ---
Test Reason : Blood Pressure : / mmHG Vent. Rate : 114 BPM Atrial Rate : 114 BPM P-R Int : 280 ms QRS Dur : 086 ms QT Int : 354 ms P-R-T Axes : 072 069 -69 degrees QTc Int : 487 ms Sinus tachycardia with 1st degree A-V block Abnormal ECG When compared with ECG of 12-JAN-2018 16:11, Sinus rhythm has replaced Electronic atrial pacemaker Non-specific change in ST segment in Inferior leads ST now depressed in Anterior leads T wave inversion now evident in Inferolateral leads Confirmed by Abdullahi Chance ([id number]) on 12/24/2019 6:46:54 AM Referred By: Balta Stephenson Confirmed By:Abdullahi Chance
--- NOTE | 2019-12-24 06:57 | Electrocardiogram Report ---
Test Reason : Blood Pressure : / mmHG Vent. Rate : 060 BPM Atrial Rate : 060 BPM P-R Int : 194 ms QRS Dur : 078 ms QT Int : 408 ms P-R-T Axes : 000 031 022 degrees QTc Int : 408 ms Atrial-paced rhythm Abnormal ECG When compared with ECG of 22-DEC-2019 22:44, Electronic atrial pacemaker has replaced Sinus rhythm Vent. rate has decreased BY 54 BPM Non-specific change in ST segment in Inferior leads ST no longer depressed in Anterior leads T wave inversion no longer evident in Inferior leads T wave inversion no longer evident in Lateral leads Confirmed by Abdullahi Chance ([id number]) on 12/24/2019 6:57:14 AM Referred By: Balta Stephenson Confirmed By:Abdullahi Chance
[2019-12-24 07:39] LABS: Basophils # (auto) 0.03 K/uL (0-0.2); Basophils % (auto) 0.2 %; Hemoglobin 12.9 g/dL (12.0-16.0); Immature Granulocytes # (auto) 0.03 K/uL (0.00-0.02); Immature Granulocytes % (auto) 0.2 %; Lymphocytes # (auto) 1.21 K/uL (1.2-3.4); Lymphocytes % (auto) 8.7 %; Mean Corpuscular Hemoglobin 30.5 pg (25-34); Mean Corpuscular Hgb Conc 33.1 g/dL (32-36); Mean Corpuscular Volume 92.2 fL (80-100); Mean Platelet Volume 11.2 fL (7.4-10.4); Monocytes # (auto) 1.62 K/uL (0.11-0.59); Monocytes % (auto) 11.6 %; Neutrophils # (auto) 11.07 K/uL (1.4-6.5); Neutrophils % (auto) 79.3 %; Platelet Count 133 K/uL (130-400); RDW Standard Deviation 47.4 fL (36.4-46.3); Red Blood Count 4.23 M/uL (4.2-5.4); White Blood Count 13.96 K/uL (4.8-10.8)
[2019-12-24 08:22] LABS: BUN Creatinine Ratio 22.5 (10-20); Creatinine Clr Calc Pharmacy 46.4 ml/min; Est GFR (African American) 55.5; Est GFR (Non-African American) 47.9; Magnesium 2.5 mg/dl (1.8-2.4)
[2019-12-24] MEDS: ENOXAPARIN INJ 30 MG/0.3 ML SYR SQ SCH (08:38)
[2019-12-24] MEDS: FAMOTIDINE 20 MG TAB PO SCH (08:38)
[2019-12-24] MEDS: POTASSIUM CHLORIDE 10 MEQ TABCR PO SCH (08:38)
[2019-12-24] MEDS: SOTALOL HCL 80 MG TAB PO SCH ×2 (08:38→20:46)
[2019-12-24] MEDS: CETIRIZINE HCL 10 MG TABLET PO SCH (08:38)
[2019-12-24] MEDS: cefTRIAXone SODIUM 2,000 MG in DEXTROSE 5% 50 ML IV SCH (08:38)
[2019-12-24] MEDS: LETROZOLE 2.5 MG TAB PO SCH (08:38)
[2019-12-24] MEDS: OXYCODONE/ACETAMINOPHEN 5mg/325mg TAB PO PRN (11:46)
--- NOTE | 2019-12-24 13:15 | Surgery Progress Note ---
Date of Service December 24, 2019 Assessment & Plan (1) Acute appendicitis with generalized peritonitis: POD # 1 s/p appendectomy for perforated gangrenous appendicitis, malrotation of bowel - afebrile, vss, leukocytosis of 13.9K today - moderate postop pain, controlled - katie drain with cloudy, serosanguineous output - + bowel function Plan: Will start on clear liquids resume home medications, okay to resume Eliquis oob to chair and ambulate if possible Continue IV Ceftriazone and flagyl follow cbc given mild elevation of wbc continue katie drain to bulb suction dressing changes as needed for drain appreciate hospitalist comanagement (2) Acute abdominal pain: Secondary to perforated acute appendicitis postop pain moderate but better controlled today Dr. Yañez has seen and examined pt, agrees with above. Admission and Anticipated Discharge Date Admission Date: December 23, 2019 Subjective feeling better today than yesterday pain still present but better controlled passing flatus and had bowel movement belching and having some heartburn Physical Exam Constitutional: WD/WN, vitals as above no acute distress and not ill appearing Respiratory: normal respiratory effort; no respiratory distress Gastrointestinal (Abdomen): Inspection/Auscultation: abdomen normal to inspection and + abdominal surgical drain present (cloudy, serosanguineous); abdomen not distended Percussion/Palpation: + abdomen tender (at incision site and drain sites, appropriate postop) and abdomen soft; no guarding and abdomen not rigid Skin: no rashes, warm and dry + incision (clean/dry/intact, [place] intact) Neurologic: Motor/Sensory: + tremor Psychiatric: Orientation: alert and oriented x 3 Results & Data ([facility]) Vital Signs (Past 12 Hours) Vital Signs Temp Pulse Pulse Resp BP BP Pulse Ox 12/24/19 11:59 36.8 C 59 L 20 112/67 91 12/24/19 10:36 61 12/24/19 08:04 37.0 C 60 20 107/59 L 90 12/24/19 04:08 36.6 C 60 19 106/65 91 Laboratory Results 12/24/19 12/24/19 Range/Units 07:03 07:03 WBC 13.96 H (4.8-10.8) K/uL RBC 4.23 (4.2-5.4) M/uL Hgb 12.9 (12.0-16.0) g/dL Hct 39.0 (37-47) % MCV 92.2 (80-100) fL MCH 30.5 (25-34) pg MCHC 33.1 (32-36) g/dL RDW Std Deviation 47.4 H (36.4-46.3) fL RDW Coeff of Ken 14.0 (11.5-14.5) % Plt Count 133 (130-400) K/uL MPV 11.2 H (7.4-10.4) fL Immature Gran % (Auto) 0.2 % Neut % (Auto) 79.3 % Lymph % (Auto) 8.7 % Green % (Auto) 11.6 % Eos % (Auto) 0.0 % Baso % (Auto) 0.2 % Neut # (Auto) 11.07 H (1.4-6.5) K/uL Lymph # (Auto) 1.21 (1.2-3.4) K/uL [place] # (Auto) 1.62 H (0.11-0.59) K/uL Eos # (Auto) 0.00 (0-0.5) K/uL Baso # (Auto) 0.03 (0-0.2) K/uL Immature Gran # (Auto) 0.03 H (0.00-0.02) K/uL Sodium 137 (136-145) mmol/L Potassium 4.0 D (3.5-5.1) mmol/L Chloride 105 (98-107) mmol/L Carbon Dioxide 23 (21-32) mmol/L Anion Gap 9.0 (3-11) BUN 25 H D (7-18) mg/dl Creatinine 1.09 (0.6-1.2) mg/dl Est Cr Clr Drug Dosing 46.4 ml/min Est GFR ( Amer) 55.5 Est GFR (Non-Af Amer) 47.9 BUN/Creatinine Ratio 22.5 H (10-20) Glucose 112 H (70-99) mg/dl Calcium 8.0 L (8.5-10.1) mg/dl Magnesium 2.5 H (1.8-2.4) mg/dl (1) Acute appendicitis with generalized peritonitis Appendicitis abscess presence: without abscess Appendicitis gangrene presence: unspecified whether gangrene present Appendicitis perforation presence: with perforation Qualified Code(s): K35.20 - Acute appendicitis with generalized peritonitis, without abscess
[2019-12-24] MEDS ORDERED: SUCRALFATE 1 GM/10 ML UDC PO PRN (13:22)
[2019-12-24] MEDS ORDERED: SIMETHICONE 80 MG CHEW PO PRN (13:22)
[2019-12-24] MEDS ORDERED: OXYCODONE/ACETAMINOPHEN 5mg/325mg TAB PO PRN (13:33)
[2019-12-24] MEDS ORDERED: MoRPHine SULFATE 2 MG/ML CARP IV PRN (13:34)
[2019-12-24] MEDS: PANTOprazole 40 MG TAB PO SCH (14:09)
--- NOTE | 2019-12-24 19:22 | Hospitalist Progress Note ---
Date of Service December 24, 2019 Assessment & Plan (1) Acute appendicitis with perforation, generalized peritonitis, and gangrene: POD #1 s/p open appendectomy. Management per general surgery. Diet advancement, pain control, DVT proph per surgery. Cont IV rocephin w/ flagyl. Follow blood cultures but thus far negative. She is tolerating clears. Awaiting full return of bowel function (burping/belching likely due to such; decreased bowel sounds on exam today). (2) Sepsis: 2nd to appendicitis with perforation/gangrene. Cont IVF. Cont IV antibiotics. Follow blood cultures. BPs stable this am. Low UOP 2nd to KAYLAH in setting of sepsis. Cont supportive care. (3) PAF (paroxysmal atrial fibrillation): History of such. Continue sotalol. Resume Eliquis BID today. No PAF thus far on tele since admission. (4) Abnormal urinalysis: follow urine cx but thus far neg (5) Hypokalemia: Replaced and resolved. BMP am. (6) Hypomagnesemia: replaced and resolved. 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 Never has had difficulties due to such. (8) Hypothyroid: TSH 04/2019 wnl. Cont synthroid. (9) Hypertension: Due to sepsis and KAYLAH cont to hold HCTZ and amlodipine. (10) Acute kidney injury: sepsis-associated ATN with resulting oliguria. cont IVF. BMP am. (11) Belching: use PPI in gaby of pepcid carafate prn mylicon prn once bowel function improves the belching should improved (12) DVT prophylaxis: stop lovenox and resume eliquis 5mg BID will continue to follow Admission and Anticipated Discharge Date Admission Date: December 23, 2019 Subjective patient feeling better today is having burping/belching/hiccups, however did have small stool this am but not passing much flatus abdominal pain improved no dyspnea tolerating clears ordered by surgery tele normal overnight UOP per staff LOW Review of Systems Constitutional: + fatigue; no fever and no chills Respiratory: no cough Cardiovascular: no chest pain Gastrointestinal: no nausea and no vomiting Physical Exam Constitutional: well developed and well nourished; no acute distress and no altered mental status ENMT: Mouth: + dry oral mucous membranes Respiratory: normal respiratory effort, lungs clear to auscultation Auscultation: + diminished lung sounds (bases) Cardiovascular: Rate/Rhythm: regular rate and regular rhythm Heart Sounds: normal S1 and normal S2; no murmur Vessels: posterior tibial pulses present and dorsalis pedis pulses present; no JVD Extremities: no edema Gastrointestinal (Abdomen): Inspection/Auscultation: + abdomen distended; + abnormal bowel sounds (decreased) Percussion/Palpation: + abdomen tender (incisional ); no guarding and no hepatosplenomegaly incision/[place] intact, clean Psychiatric: A+Ox3, euthymic affect Results & Data Results & Data ([facility]) Vital Signs (Past 12 Hours) Vital Signs Temp Pulse Pulse Pulse Resp BP BP 12/24/19 15:32 36.8 C 61 18 113/70 12/24/19 11:59 36.8 C 59 L 20 112/67 12/24/19 10:36 61 12/24/19 08:04 37.0 C 60 20 107/59 L Pulse Ox 12/24/19 15:32 92 12/24/19 11:59 91 12/24/19 10:36 12/24/19 08:04 90 Laboratory Results Laboratory Results - last 24 hr 12/24/19 12/24/19 07:03 07:03 WBC 13.96 H RBC 4.23 Hgb 12.9 Hct 39.0 MCV 92.2 MCH 30.5 MCHC 33.1 RDW Std Deviation 47.4 H RDW Coeff of Ken 14.0 Plt Count 133 MPV 11.2 H Immature Gran % (Auto) 0.2 Neut % (Auto) 79.3 Lymph % (Auto) 8.7 [place] % (Auto) 11.6 Eos % (Auto) 0.0 Baso % (Auto) 0.2 Neut # (Auto) 11.07 H Lymph # (Auto) 1.21 [place] # (Auto) 1.62 H Eos # (Auto) 0.00 Baso # (Auto) 0.03 Immature Gran # (Auto) 0.03 H Sodium 137 Potassium 4.0 D Chloride 105 Carbon Dioxide 23 Anion Gap 9.0 BUN 25 H D Creatinine 1.09 Est Cr Clr Drug Dosing 46.4 Est GFR ( Amer) 55.5 Est GFR (Non-Af Amer) 47.9 BUN/Creatinine Ratio 22.5 H Glucose 112 H Calcium 8.0 L Magnesium 2.5 H PG Care Time/CCT Total # of Minutes Spent Total Time Spent with Patient: Total time spent is greater than 50% in coordination of care (as documented) at patient's floor/unit and/or counseling patient: Coding Level of Care Code 31337 Subseq Hosp Care Lvl 3 Diagnoses Acute appendicitis with perforation, generalized peritonitis, and gangrene K35.20 Appendicitis abscess presence: without abscess Sepsis A41.9 Sepsis acute organ dysfunction status: unspecified Sepsis type: sepsis due to unspecified organism PAF (paroxysmal atrial fibrillation) I48.0 Abnormal urinalysis R82.90 Hypokalemia E87.6 Hypomagnesemia E83.42 Malrotation of intestine Q43.3 Hypothyroid E89.0 Hypothyroidism type: postoperative Hypertension I10 Hypertension type: essential hypertension Acute kidney injury N17.9 Belching R14.2 DVT prophylaxis Z29.9 (1) Acute appendicitis with perforation, generalized peritonitis, and gangrene Appendicitis abscess presence: without abscess Qualified Code(s): K35.20 - Acute appendicitis with generalized peritonitis, without abscess (2) Hypothyroid Hypothyroidism type: postoperative Qualified Code(s): E89.0 - Postprocedural hypothyroidism (3) Sepsis Sepsis acute organ dysfunction status: unspecified Sepsis type: sepsis due to unspecified organism Qualified Code(s): A41.9 - Sepsis, unspecified organism (4) Hypertension Hypertension type: essential hypertension Qualified Code(s): I10 - Essential (primary) hypertension
[2019-12-24] MEDS: APIXABAN 5 MG TABLET PO SCH (20:46)
[2019-12-24] MEDS: ZOLPIDEM TARTRATE 5 MG TAB PO SCH (20:46)
[2019-12-25] MEDS: POTASSIUM CHLORIDE 20 MEQ in LACTATED RINGER'S 1,000 ML IV SCH ×2 (02:10→12:28)
[2019-12-25] MEDS: metroNIDAZOLE 500 MG/100 ML BAG IV SCH ×3 (03:19→19:15)
[2019-12-25] MEDS: LEVOTHYROXINE SODIUM 88 MCG TABLET PO SCH (05:45)
[2019-12-25 07:34] LABS: Basophils # (auto) 0.02 K/uL (0-0.2); Basophils % (auto) 0.1 %; Eosinophils # (auto) 0.15 K/uL (0-0.5); Eosinophils % (auto) 1.1 %; Hematocrit (blood only) 37.6 % (37-47); Hemoglobin 12.4 g/dL (12.0-16.0); Immature Granulocytes # (auto) 0.05 K/uL (0.00-0.02); Immature Granulocytes % (auto) 0.4 %; Lymphocytes # (auto) 1.09 K/uL (1.2-3.4); Lymphocytes % (auto) 7.7 %; Mean Corpuscular Hemoglobin 29.7 pg (25-34); Mean Platelet Volume 11.6 fL (7.4-10.4); Monocytes % (auto) 9.2 %; Neutrophils # (auto) 11.59 K/uL (1.4-6.5); Neutrophils % (auto) 81.5 %; Platelet Count 129 K/uL (130-400); RDW Coefficient of Variation 13.7 % (11.5-14.5); RDW Standard Deviation 45.5 fL (36.4-46.3); Red Blood Count 4.18 M/uL (4.2-5.4)
[2019-12-25] MEDS: POTASSIUM CHLORIDE 10 MEQ TABCR PO SCH (07:58)
[2019-12-25] MEDS: OXYCODONE/ACETAMINOPHEN 5mg/325mg TAB PO PRN (07:58)
[2019-12-25] MEDS: CETIRIZINE HCL 10 MG TABLET PO SCH (07:59)
[2019-12-25] MEDS: APIXABAN 5 MG TABLET PO SCH ×2 (07:59→20:54)
[2019-12-25] MEDS: LETROZOLE 2.5 MG TAB PO SCH (07:59)
[2019-12-25] MEDS: SOTALOL HCL 80 MG TAB PO SCH ×2 (07:59→20:54)
[2019-12-25] MEDS: PANTOprazole 40 MG TAB PO SCH (07:59)
[2019-12-25 08:08] LABS: BUN Creatinine Ratio 26.4 (10-20); Calcium 8.3 mg/dl (8.5-10.1); Creatinine Clr Calc Pharmacy 66.9 ml/min; Est GFR (African American) 85.9; Est GFR (Non-African American) 74.1; Potassium 4.6 mmol/L (3.5-5.1)
[2019-12-25] MEDS: cefTRIAXone SODIUM 2,000 MG in DEXTROSE 5% 50 ML IV SCH (10:02)
--- NOTE | 2019-12-25 12:25 | Surgery Progress Note ---
Date of Service December 25, 2019 Assessment & Plan (1) Acute appendicitis with generalized peritonitis: POD # 2 s/p appendectomy for perforated gangrenous appendicitis, malrotation of bowel - afebrile, vss, leukocytosis of 14K today - mild postop pain better controlled today - katie drain clear and straw colored today, not turbid - + bowel function yesterday, tolerating clears Plan: advance to full liquids oob to chair and ambulate if possible Continue IV Ceftriazone and flagyl follow cbc given mild elevation of wbc continue katie drain to bulb suction dressing changes as needed for drain appreciate hospitalist comanagement, started on home Eliquis last evening continue incentive spirometry case management/Pt/OT on board (2) Acute abdominal pain: Secondary to perforated acute appendicitis postop pain mild, better controlled today Dr. Yañez has seen and examined pt, agrees with above. Admission and Anticipated Discharge Date Admission Date: December 23, 2019 Subjective feeling better today pain better controlled not passing much gas today , has not had bowel movement today but tolerating clear liquids and would like something more to eat no n/v walked down hallway with PT Physical Exam Constitutional: WD/WN, vitals as above no acute distress and not ill appearing sitting up in chair at bedside, eating Respiratory: normal respiratory effort; no respiratory distress Gastrointestinal (Abdomen): Inspection/Auscultation: abdomen normal to inspection and + abdominal surgical drain present (straw colored, not turbid today); abdomen not distended Percussion/Palpation: abdomen soft; abdomen nontender, no guarding and abdomen not rigid Skin: no rashes, warm and dry + incision (midline incision clean/dry/intact with valencia) Psychiatric: A+Ox3, euthymic affect Results & Data ([facility]) Vital Signs (Past 12 Hours) Vital Signs Temp Pulse Resp BP BP Pulse Ox 12/25/19 11:55 36.5 C 59 L 20 104/66 94 12/25/19 08:09 36.9 C 67 20 128/60 93 12/25/19 03:48 36.4 C L 60 18 120/73 90 (1) Acute appendicitis with generalized peritonitis Appendicitis abscess presence: without abscess Appendicitis gangrene presence: unspecified whether gangrene present Appendicitis perforation presence: with perforation Qualified Code(s): K35.20 - Acute appendicitis with generalized peritonitis, without abscess
--- NOTE | 2019-12-25 17:42 | XRay Report ---
XR chest 2V PA/lateral CLINICAL HISTORY: Evaluate for pulmonary edema. COMPARISON STUDY: Chest radiograph January 10, 2018. 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 Linear left midlung opacity suggests atele ctasis. Linear right lower lung opacity favors atelectasis. There are small bilateral pleural effusio ns. No consolidation is identified. Mild cardiomegaly is noted. Interstitial thickening suggests mild pulmonary edema. Lung volumes are mildly increased. IMPRESSION: 1. Small bilateral pleural effusions with findings suggestive of mild pulmonary edema. 2. Mild cardiomegaly. ACT 112: Negative or not required by law. Electronically signed by: William Fernando M.D. 12/25/2019 5:40 PM
[2019-12-25] MEDS ORDERED: FUROSEMIDE 20 MG in SYRINGE 0 ML IV ONE (18:15)
[2019-12-25] MEDS: ZOLPIDEM TARTRATE 5 MG TAB PO SCH (20:54)
--- NOTE | 2019-12-25 23:04 | Hospitalist Progress Note ---
Date of Service December 25, 2019 Assessment & Plan (1) Volume overload: 8+ L positive since admission. wheezing/new pulm symptoms 2nd to pulm edema. stop IV fluids. cxr c/w volume overload. lasix 20mg IV x 1. likely to need additional diuresis tomorrow. (2) Acute appendicitis with perforation, generalized peritonitis, and gangrene: POD #2 s/p open appendectomy. Management per general surgery. Diet advancement, pain control, DVT proph per surgery. Cont IV rocephin w/ flagyl. Follow blood cultures but thus far negative. Diet advanced to fulls today by gen surg. (3) Sepsis: 2nd to appendicitis with perforation/gangrene. Cont IV antibiotics. Follow blood cultures. stop IVF- see above. (4) PAF (paroxysmal atrial fibrillation): History of such. Continue sotalol. Continue eliquis BID. No PAF thus far on tele since admission. (5) Hypokalemia: Replaced and resolved. BMP am since lasix to be given today. (6) Hypomagnesemia: replaced and resolved. 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 Never has had difficulties due to such. (8) Hypothyroid: TSH 04/2019 wnl. Cont synthroid. (9) Hypertension: cont to hold HCTZ and amlodipine. (10) Acute kidney injury: sepsis-associated ATN with resulting oliguria. resolved. bmp am. (11) Belching: resolved with PPI and improvement in overall bowel function (12) DVT prophylaxis: eliquis 5mg BID medicine will continue to follow Admission and Anticipated Discharge Date Admission Date: December 23, 2019 Subjective burping/belching/hiccups resolved today she had a bowel movement earlier today - firm, but did pass one has had flatus only mild abd pain today reports that this am she "started with a wheeze" thinks it is her asthma when she ambulated with PT did not have dyspnea, however telemetry overnight wnl Review of Systems Constitutional: no fever and no fatigue Respiratory: + cough and + wheezing; no dyspnea on exertion Cardiovascular: no chest pain Gastrointestinal: as per Subjective / HPI and + abdominal pain Physical Exam Constitutional: well developed and well nourished; no acute distress and no altered mental status ENMT: Mouth: no oropharynx abnormality Respiratory: Auscultation: + diminished lung sounds (bases) and + wheezes; no crackles Cardiovascular: Rate/Rhythm: regular rate and regular rhythm Heart Sounds: normal S1 and normal S2; no murmur Vessels: posterior tibial pulses present and dorsalis pedis pulses present; no JVD Extremities: no edema Gastrointestinal (Abdomen): Inspection/Auscultation: + abdomen distended and normal bowel sounds (Improved today) Percussion/Palpation: + abdomen tender (incisional only); no guarding and no hepatosplenomegaly Skin: incision/valencia midline abdomen c/d/i Psychiatric: A+Ox3, euthymic affect Results & Data Results & Data ([facility]) Vital Signs (Past 12 Hours) Vital Signs Temp Pulse Pulse Resp BP BP Pulse Ox 12/25/19 19:50 37.2 C 63 18 123/73 94 12/25/19 16:08 37.0 C 61 18 106/57 L 93 12/25/19 16:00 62 12/25/19 11:55 36.5 C 59 L 20 104/66 94 Laboratory Results Laboratory Results - last 24 hr 12/25/19 12/25/19 07:05 07:05 WBC 14.20 H RBC 4.18 L Hgb 12.4 Hct 37.6 MCV 90.0 MCH 29.7 MCHC 33.0 RDW Std Deviation 45.5 RDW Coeff of Ken 13.7 Plt Count 129 L MPV 11.6 H Immature Gran % (Auto) 0.4 Neut % (Auto) 81.5 Lymph % (Auto) 7.7 [place] % (Auto) 9.2 Eos % (Auto) 1.1 Baso % (Auto) 0.1 Neut # (Auto) 11.59 H Lymph # (Auto) 1.[address] [place] # (Auto) 1.30 H Eos # (Auto) 0.15 Baso # (Auto) 0.02 Immature Gran # (Auto) 0.05 H Sodium 138 Potassium 4.6 Chloride 108 H Carbon Dioxide 23 Anion Gap 7.0 BUN 20 H Creatinine 0.76 D Est Cr Clr Drug Dosing 66.9 Est GFR ( Amer) 85.9 Est GFR (Non-Af Amer) 74.1 BUN/Creatinine Ratio 26.4 H Glucose 105 H Calcium 8.3 L cxr - pulm edema/effusions PG Care Time/CCT Total # of Minutes Spent Total Time Spent with Patient: Total time spent is greater than 50% in coordination of care (as documented) at patient's floor/unit and/or counseling patient: Coding Level of Care Code 19155 Subseq Hosp Care Lvl 2 Diagnoses Volume overload E87.70 Hypervolemia type: unspecified Acute appendicitis with perforation, generalized peritonitis, and gangrene K35.20 Appendicitis abscess presence: without abscess Sepsis A41.9 Sepsis acute organ dysfunction status: unspecified Sepsis type: sepsis due to unspecified organism PAF (paroxysmal atrial fibrillation) I48.0 Hypokalemia E87.6 Hypomagnesemia E83.42 Malrotation of intestine Q43.3 Hypothyroid E89.0 Hypothyroidism type: postoperative Hypertension I10 Hypertension type: essential hypertension Acute kidney injury N17.9 Belching R14.2 DVT prophylaxis Z29.9 (1) Acute appendicitis with perforation, generalized peritonitis, and gangrene Appendicitis abscess presence: without abscess Qualified Code(s): K35.20 - Acute appendicitis with generalized peritonitis, without abscess (2) Hypothyroid Hypothyroidism type: postoperative Qualified Code(s): E89.0 - Postprocedural hypothyroidism (3) Sepsis Sepsis acute organ dysfunction status: unspecified Sepsis type: sepsis due to unspecified organism Qualified Code(s): A41.9 - Sepsis, unspecified organism (4) Hypertension Hypertension type: essential hypertension Qualified Code(s): I10 - Essential (primary) hypertension (5) Volume overload Hypervolemia type: unspecified Qualified Code(s): E87.70 - Fluid overload, unspecified
[2019-12-26] MEDS: metroNIDAZOLE 500 MG/100 ML BAG IV SCH ×3 (04:07→19:38)
[2019-12-26] MEDS: LEVOTHYROXINE SODIUM 88 MCG TABLET PO SCH (06:25)
[2019-12-26 06:42] LABS: Basophils # (auto) 0.04 K/uL (0-0.2); Basophils % (auto) 0.3 %; Eosinophils # (auto) 0.27 K/uL (0-0.5); Eosinophils % (auto) 2.1 %; Hematocrit (blood only) 37.9 % (37-47); Hemoglobin 11.9 g/dL (12.0-16.0); Immature Granulocytes # (auto) 0.03 K/uL (0.00-0.02); Immature Granulocytes % (auto) 0.2 %; Lymphocytes % (auto) 8.7 %; Mean Corpuscular Hemoglobin 28.4 pg (25-34); Mean Corpuscular Hgb Conc 31.4 g/dL (32-36); Mean Corpuscular Volume 90.5 fL (80-100); Mean Platelet Volume 11.3 fL (7.4-10.4); Monocytes # (auto) 1.49 K/uL (0.11-0.59); Monocytes % (auto) 11.7 %; Neutrophils # (auto) 9.77 K/uL (1.4-6.5); Platelet Count 157 K/uL (130-400); RDW Coefficient of Variation 13.6 % (11.5-14.5); RDW Standard Deviation 45.6 fL (36.4-46.3); Red Blood Count 4.19 M/uL (4.2-5.4)
[2019-12-26 07:28] LABS: BUN Creatinine Ratio 17.6 (10-20); Calcium 7.3 mg/dl (8.5-10.1); Creatinine Clr Calc Pharmacy 80.1 ml/min; Est GFR (African American) 97.7; Est GFR (Non-African American) 84.3; Magnesium 1.9 mg/dl (1.8-2.4); Potassium 3.3 mmol/L (3.5-5.1)
[2019-12-26] MEDS: SOTALOL HCL 80 MG TAB PO SCH ×2 (07:38→20:40)
[2019-12-26] MEDS: POTASSIUM CHLORIDE 10 MEQ TABCR PO SCH (07:38)
[2019-12-26] MEDS: LETROZOLE 2.5 MG TAB PO SCH (07:38)
[2019-12-26] MEDS: CETIRIZINE HCL 10 MG TABLET PO SCH (07:39)
[2019-12-26] MEDS: PANTOprazole 40 MG TAB PO SCH (07:39)
[2019-12-26] MEDS: APIXABAN 5 MG TABLET PO SCH ×2 (07:39→20:40)
[2019-12-26] MEDS: cefTRIAXone SODIUM 2,000 MG in DEXTROSE 5% 50 ML IV SCH (07:40)
--- NOTE | 2019-12-26 11:22 | Surgery Progress Note ---
Date of Service December 26, 2019 Assessment & Plan (1) Acute appendicitis with perforation, generalized peritonitis, and gangrene: Postoperative day #3 status post open appendectomy White count decreased slightly today but is not back to normal as yet Having diarrhea Would continue antibiotics for now Continue to ambulate Tolerating diet but does not have an appetite, would continue full liquids for now Admission and Anticipated Discharge Date Admission Date: December 23, 2019 Subjective Postoperative day #3 status post open appendectomy for ruptured appendix Had full liquids yesterday and after eating a small amount felt full but did not have nausea. She has not vomited. Abdominal pain is under good control Having multiple bowel movements that are very loose. There is black material present Had 200 cc from the ELIZABETH yesterday and 40 cc over the first shift today, appears serosanguineous Physical Exam Gastrointestinal (Abdomen): Inspection/Auscultation: + abdominal surgical incision ([place] are intact, there is some pink color to the skin in the lower portion, no drainage); abdomen not distended Percussion/Palpation: + abdomen tender (Mild along the left side of the incision) and abdomen soft Results & Data ([facility]) Vital Signs (Past 12 Hours) Vital Signs Temp Pulse Pulse Resp BP BP Pulse Ox 12/26/19 10:47 36.5 C 62 20 108/69 93 12/26/19 08:00 37.1 C 68 19 133/82 95 12/26/19 05:07 37.2 C 87 16 113/67 92 12/26/19 00:54 60 (1) Acute appendicitis with perforation, generalized peritonitis, and gangrene Appendicitis abscess presence: without abscess Qualified Code(s): K35.20 - Acute appendicitis with generalized peritonitis, without abscess
[2019-12-26] MEDS: SODIUM BICARBONATE 650 MG TAB PO SCH ×2 (11:24→20:40)
[2019-12-26] MEDS: POTASSIUM CHLORIDE 20 MEQ TABCR PO SCH ×2 (13:07→20:40)
--- NOTE | 2019-12-26 14:57 | Hospitalist Progress Note ---
Date of Service December 26, 2019 Assessment & Plan (1) Volume overload: 8+ L positive since admission. wheezing/new pulm symptoms 2nd to pulm edema. stop IV fluids. cxr c/w volume overload. Lasix 20mg IV given 12/24, good response now with a lot of diarrhea and volume losses will hold on Lasix today as breathing stable on room air allow her to mobilize fluids, ambulate reassess for Lasix tomorrow (2) Acute appendicitis with perforation, generalized peritonitis, and gangrene: POD #3 s/p open appendectomy. Management per general surgery. Diet advancement, pain control, DVT proph per surgery. Cont IV rocephin w/ flagyl, WBC is 12k, no fever, vitals stable Follow blood cultures but thus far negative. diarrhea and dark, bloody stools per surgery this is expected based on operative report add some sodium bicarb in anticipation of losing bicarb with diarrhea (3) Sepsis: 2nd to appendicitis with perforation/gangrene. Cont IV antibiotics. Follow blood cultures. stop IVF- see above. sepsis resolved (4) PAF (paroxysmal atrial fibrillation): History of such. Continue sotalol. Continue eliquis BID. No PAF thus far on tele since admission. (5) Hypokalemia: 3.3 today replace PO repeat labs in AM (6) Hypomagnesemia: replaced and resolved. 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 Never has had difficulties due to such. (8) Hypothyroid: TSH 04/2019 wnl. Cont synthroid. (9) Hypertension: cont to hold HCTZ and amlodipine. (10) Acute kidney injury: sepsis-associated ATN with resulting oliguria. resolved. bmp am. (11) Belching: resolved with PPI and improvement in overall bowel function (12) DVT prophylaxis: eliquis 5mg BID medicine will continue to follow Admission and Anticipated Discharge Date Admission Date: December 23, 2019 Subjective patient having a lot of diarrhea today mild RLQ pain, not as intense as prior to surgery no fever/chills, no dyspnea, no cough, no chest pain, no nausea tolerating liquids reviewed labs, K low at 3.3, HCO3 21, Cr stable at 0.64, Mg 1.9 reviewed chart since this is my first day seeing patient Review of Systems Review of Systems: All systems reviewed & are unremarkable except as noted in Subjective Constitutional: no fever, no chills, no sweats, no fatigue and no weakness Respiratory: no cough and no dyspnea Cardiovascular: no chest pain and no edema Gastrointestinal: + abdominal pain (RLQ), + diarrhea/loose stools and + melena; no nausea, no vomiting and no constipation Physical Exam Constitutional: WD/WN, vitals as above Eyes: PERRL, conjunctivae normal, anicteric sclerae ENMT: external ear and nose normal, oropharynx normal Neck: trachea midline, no thyromegaly Respiratory: normal respiratory effort, lungs clear to auscultation Cardiovascular: RRR, no murmur, no edema Gastrointestinal (Abdomen): Inspection/Auscultation: normal bowel sounds, + abdominal surgical incision and + abdominal surgical drain present; abdomen not distended Percussion/Palpation: + abdomen tender and abdomen soft; no guarding and abdomen not rigid Musculoskeletal: no cyanosis or clubbing, extremities motor strength 5/5 Skin: no rashes, warm and dry Neurologic: patellar DTR's 2+ bilat, sensation intact and PERRL, EOMI, accommodation nl, no face palsy, no dysarthria Psychiatric: A+Ox3, euthymic affect Lymphatic: no cervical or axillary lymphadenopathy Results & Data Results & Data ([facility]) Vital Signs (Past 12 Hours) Vital Signs Temp Pulse Resp BP BP Pulse Ox 12/26/19 10:47 36.5 C 62 20 108/69 93 12/26/19 08:00 37.1 C 68 19 133/82 95 12/26/19 05:07 37.2 C 87 16 113/67 92 Laboratory Results Laboratory Results - last 24 hr 12/26/19 12/26/19 06:14 06:14 WBC 12.70 H RBC 4.19 L Hgb 11.9 L Hct 37.9 MCV 90.5 MCH 28.4 MCHC 31.4 L RDW Std Deviation 45.6 RDW Coeff of Ken 13.6 Plt Count 157 MPV 11.3 H Immature Gran % (Auto) 0.2 Neut % (Auto) 77.0 Lymph % (Auto) 8.7 Rusk % (Auto) 11.7 Eos % (Auto) 2.1 Baso % (Auto) 0.3 Neut # (Auto) 9.77 H Lymph # (Auto) 1.10 L Rusk # (Auto) 1.49 H Eos # (Auto) 0.27 Baso # (Auto) 0.04 Immature Gran # (Auto) 0.03 H Sodium 138 Potassium 3.3 L D Chloride 108 H Carbon Dioxide 21 Anion Gap 9.0 BUN 11 Creatinine 0.64 Est Cr Clr Drug Dosing 80.1 Est GFR ( Amer) 97.7 Est GFR (Non-Af Amer) 84.3 BUN/Creatinine Ratio 17.6 Glucose 97 Calcium 7.3 L Magnesium 1.9 Medications Administered Current Inpatient Medications Acetaminophen (Acetaminophen 325 Mg Tab) 650 mg PO Q4H PRN PRN Reason: mild pain Stop: 01/22/20 07:31 Last Admin: 12/26/19 07:36 Dose: 650 mg Documented by: Amlodipine Besylate (Amlodipine Besylate 5 Mg Tab) 2.5 mg PO DAILY PENDING SALE TO [facility] Stop: 01/22/20 08:59 Apixaban (Apixaban 5 Mg Tablet) 5 mg PO BID PENDING SALE TO [facility] Stop: 01/23/20 20:59 Last Admin: 12/26/19 07:39 Dose: 5 mg Documented by: Cetirizine HCl (Cetirizine Hcl 10 Mg Tablet) 10 mg PO DAILY [facility] Stop: 01/22/20 08:59 Last Admin: 12/26/19 07:39 Dose: 10 mg Documented by: Fluticasone Propionate (Fluticasone Propionate Na Spr 16 Gm Btl) 2 sprays NA DAILY PRN PRN Reason: Nasal Congestion Stop: 01/22/20 01:32 Metronidazole (Flagyl) 500 mg in 100 mls @ 100 mls/hr IV Q8H PENDING SALE TO [facility] Stop: 12/30/19 11:14 Last Infusion: 12/26/19 12:24 Dose: Infused Documented by: Ceftriaxone Sodium 2,000 mg/ (Dextrose) 70 mls @ 100 mls/hr IV Q24H PENDING SALE TO [facility]; Protocol Stop: 01/06/20 10:59 Letrozole (Letrozole 2.5 Mg Tab) 2.5 mg PO DAILY [facility] Stop: 01/22/20 08:59 Last Admin: 12/26/19 07:38 Dose: 2.5 mg Documented by: Levothyroxine Sodium (Levothyroxine Sodium 88 Mcg Tablet) 88 mcg PO DAILYBB PENDING SALE TO [facility] Stop: 01/22/20 06:29 Last Admin: 12/26/19 06:25 Dose: 88 mcg Documented by: Morphine Sulfate (Morphine Sulfate 2 Mg/Ml Carp) 2 mg IV Q3H PRN PRN Reason: moderate pain Stop: 01/07/20 13:33 Ondansetron HCl (Ondansetron Inj 2 Mg/Ml 2 Ml Vial) 4 mg IV Q6H PRN PRN Reason: Nausea Stop: 01/22/20 01:32 Oxycodone/Acetaminophen (Oxycodone/Acetaminophen 5mg/325mg Tab) 1 tab PO Q4H PRN PRN Reason: Pain Stop: 01/06/20 01:32 Last Admin: 12/25/19 07:58 Dose: 1 tab Documented by: Oxycodone/Acetaminophen (Oxycodone/Acetaminophen 5mg/325mg Tab) 2 tab PO Q4H PRN PRN Reason: Severe Pain (7-10) Stop: 01/07/20 13:32 Pantoprazole Sodium (Pantoprazole 40 Mg Tab) 40 mg PO QAM PENDING SALE TO [facility] Stop: 12/27/19 09:01 Last Admin: 12/26/19 07:39 Dose: 40 mg Documented by: Potassium Chloride (Potassium Chloride 20 Meq Tabcr) 20 meq PO TID PENDING SALE TO [facility] Stop: 01/25/20 13:59 Last Admin: 12/26/19 13:07 Dose: 20 meq Documented by: Simethicone (Simethicone 80 Mg Chew) 80 mg PO Q6H PRN PRN Reason: excess gas Stop: 01/23/20 13:21 Sodium Bicarbonate (Sodium Bicarbonate 650 Mg Tab) 650 mg PO BID PENDING SALE TO [facility] Stop: 01/25/20 10:59 Last Admin: 12/26/19 11:24 Dose: 650 mg Documented by: Sotalol HCl (Sotalol Hcl 80 Mg Tab) 80 mg PO BID PENDING SALE TO [facility] Stop: 01/22/20 08:59 Last Admin: 12/26/19 07:38 Dose: 80 mg Documented by: Sucralfate (Sucralfate 1 Gm/10 Ml Udc) 1 gm PO QID PRN PRN Reason: upset stomach, excessive burpi Stop: 01/23/20 16:59 Last Admin: 12/24/19 14:09 Dose: 1 gm Documented by: Triamterene/HCTZ (Triamterene/Hctz 37.5/25mg Tab) 1 tab PO DAILY PENDING SALE TO [facility] Stop: 01/22/20 08:59 Zolpidem Tartrate (Zolpidem Tartrate 5 Mg Tab) 5 mg PO HS [facility] Stop: 01/22/20 20:59 Last Admin: 12/25/19 20:54 Dose: 5 mg Documented by: PG Care Time/CCT Total # of Minutes Spent Total Time Spent with Patient: Total time spent is greater than 50% in coordination of care (as documented) at patient's floor/unit and/or counseling patient: Coding Level of Care Code 96981 Subseq Hosp Care Lvl 3 Diagnoses Volume overload E87.70 Hypervolemia type: unspecified Acute appendicitis with perforation, generalized peritonitis, and gangrene K35.20 Appendicitis abscess presence: without abscess Sepsis A41.9 Sepsis acute organ dysfunction status: unspecified Sepsis type: sepsis due to unspecified organism PAF (paroxysmal atrial fibrillation) I48.0 Hypokalemia E87.6 Hypomagnesemia E83.42 Malrotation of intestine Q43.3 Hypothyroid E89.0 Hypothyroidism type: postoperative Hypertension I10 Hypertension type: essential hypertension Acute kidney injury N17.9 Belching R14.2 DVT prophylaxis Z29.9 (1) Acute appendicitis with perforation, generalized peritonitis, and gangrene Appendicitis abscess presence: without abscess Qualified Code(s): K35.20 - Acute appendicitis with generalized peritonitis, without abscess (2) Hypothyroid Hypothyroidism type: postoperative Qualified Code(s): E89.0 - Postprocedural hypothyroidism (3) Sepsis Sepsis acute organ dysfunction status: unspecified Sepsis type: sepsis due to unspecified organism Qualified Code(s): A41.9 - Sepsis, unspecified organism (4) Hypertension Hypertension type: essential hypertension Qualified Code(s): I10 - Essential (primary) hypertension (5) Volume overload Hypervolemia type: unspecified Qualified Code(s): E87.70 - Fluid overload, unspecified
[2019-12-26] MEDS: ZOLPIDEM TARTRATE 5 MG TAB PO SCH (22:11)
[2019-12-27] MEDS: metroNIDAZOLE 500 MG/100 ML BAG IV SCH ×3 (03:35→19:39)
[2019-12-27] MEDS: LEVOTHYROXINE SODIUM 88 MCG TABLET PO SCH (06:35)
[2019-12-27 07:55] LABS: Hematocrit (blood only) 37.8 % (37-47); Hemoglobin 12.4 g/dL (12.0-16.0); Mean Corpuscular Hemoglobin 29.6 pg (25-34); Mean Corpuscular Hgb Conc 32.8 g/dL (32-36); Mean Corpuscular Volume 90.2 fL (80-100); Mean Platelet Volume 11.4 fL (7.4-10.4); Platelet Count 165 K/uL (130-400); RDW Coefficient of Variation 13.7 % (11.5-14.5); RDW Standard Deviation 45.4 fL (36.4-46.3); Red Blood Count 4.19 M/uL (4.2-5.4); White Blood Count 13.55 K/uL (4.8-10.8)
--- NOTE | 2019-12-27 07:56 | Hospitalist Progress Note ---
Date of Service December 27, 2019 Assessment & Plan (1) Volume overload: - Pt 8+ L positive since admission, typical dry weight of 189 lbs, currently 202. - Developed wheezing/new pulm symptoms 2nd to pulm edema- stop IV fluids- cxr c/w volume overload, diuresed with good response - legs with increased edema again today, encouraged ambulation, elevation, and will start on Lasix 20 mg BID IV for now - diarrhea and volume loss slightly improving, monitor K+ - breathing stable on room air, left feilds diminished compared to right - allow her to mobilize fluids (2) Acute appendicitis with perforation, generalized peritonitis, and gangrene: -POD #4 s/p open appendectomy. - Management per general surgery. - Diet advancement, pain control, DVT proph per surgery. - Cont IV rocephin w/ flagyl, WBC is 12k, no fever, vitals stable - BCx negative to date -diarrhea and dark, bloody stools improving -per surgery this is expected based on operative report -cont sodium bicarb in anticipation of losing bicarb with diarrhea (3) Sepsis: -2nd to appendicitis with perforation/gangrene. -Cont IV antibiotics. -Follow blood cultures. -off fluids due as above as sepsis resolved (4) PAF (paroxysmal atrial fibrillation): History of such. Continue sotalol. Continue eliquis BID. No PAF thus far on tele since admission. (5) Hypokalemia: 3.4 replace PO repeat labs in AM (6) Hypomagnesemia: replaced and resolved. 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 Never has had difficulties due to such. (8) Hypothyroid: TSH 04/2019 wnl. Cont synthroid. (9) Hypertension: cont to hold HCTZ and amlodipine. (10) Acute kidney injury: sepsis-associated ATN with resulting oliguria. resolved. bmp am. (11) Belching: resolved with PPI and improvement in overall bowel function (12) UTI (urinary tract infection): - Urine culture growing e. coli, follow sensitivities, pt asymptomatic, continue IV abx as above. (13) DVT prophylaxis: eliquis 5mg BID CODE: DNR/DNI Dispo: From [facility], lives with in independent living, has bed confirmed by CM for skilled side, dc per primary team. Medicine will follow along. Admission and Anticipated Discharge Date Admission Date: December 23, 2019 Subjective The patient was seen and examined this morning. Pt states doing well today and is getting up and walking more often, states her strength is improving. She reports her legs are swollen, but denies any issues with breathing. She still has dark stools which is primarily liquid. Denies other complaints. Review of Systems Review of Systems: Constitutional: No fever, sweats or chills Eyes: No diplopia, no worsening or blurred vision ENT: normal hearing, no trouble swallowing Respiratory: No cough, sputum, no dyspnea at rest or on exertion Cardiovascular: No chest pain, tightness or palpitations Abdomen: No pain, nausea, vomiting, diarrhea or constipation Musculoskeletal: No joint pain, calf pain, + leg bilaterally swelling Neurologic: No weakness, numbness/tingling, or balance problems Psychiatric: No anxiety or depression Skin: No rash or itch Physical Exam Physical Exam: General: awake, alert, no apparent distress, sitting up in bedside chair Head: Normocephalic, atraumatic ENT: PERRL, EOMI, no pharyngeal exudate, mucous membranes moist Chest: on room air, + slightly diminished breath sounds in the right sams compared to left, no crackles, rales or rhonchi. Cardiac: Regular rate and rhythm, no murmur, no JVD, normal peripheral pulses, good capillary refill Abdominal: hypoactive BS x 4 quadrants, + incision stapled, healing, abdominal ELIZABETH drain in place with serosanginous fluid outs, abd soft, + edema, minimally tender to palpation, no rebound or guarding Extremities: + bilateral peripheral edema, no pitting, no erythema, calfs nontender to palpation Psych: Normal mood and affect Neuro: AAO x 3, strength intact bilaterally and rated 5/5, no motor deficits, speech is clear, no peripheral sensory deficits Results & Data Results & Data ([facility]) Vital Signs (Past 12 Hours) Vital Signs Temp Pulse Pulse Resp BP Pulse Ox 12/27/19 05:15 37 C 60 18 115/70 95 12/27/19 00:00 60 12/26/19 22:57 37.2 C 61 20 112/68 95 PG Care Time/CCT Total # of Minutes Spent Total Time Spent with Patient: Total time spent is greater than 50% in coordination of care (as documented) at patient's floor/unit and/or counseling patient: Coding Level of Care Code 30183 Inpt Consult Level 4 Diagnoses Volume overload E87.70 Hypervolemia type: unspecified Acute appendicitis with perforation, generalized peritonitis, and gangrene K35.20 Appendicitis abscess presence: without abscess Sepsis A41.9 Sepsis acute organ dysfunction status: unspecified Sepsis type: sepsis due to unspecified organism PAF (paroxysmal atrial fibrillation) I48.0 Hypokalemia E87.6 Hypomagnesemia E83.42 Malrotation of intestine Q43.3 Hypothyroid E89.0 Hypothyroidism type: postoperative Hypertension I10 Hypertension type: essential hypertension Acute kidney injury N17.9 Belching R14.2 UTI (urinary tract infection) N39.0 DVT prophylaxis Z29.9 (1) Acute appendicitis with perforation, generalized peritonitis, and gangrene Appendicitis abscess presence: without abscess Qualified Code(s): K35.20 - Acute appendicitis with generalized peritonitis, without abscess (2) Hypothyroid Hypothyroidism type: postoperative Qualified Code(s): E89.0 - Postprocedural hypothyroidism (3) Sepsis Sepsis acute organ dysfunction status: unspecified Sepsis type: sepsis due to unspecified organism Qualified Code(s): A41.9 - Sepsis, unspecified organism (4) Hypertension Hypertension type: essential hypertension Qualified Code(s): I10 - Essential (primary) hypertension (5) Volume overload Hypervolemia type: unspecified Qualified Code(s): E87.70 - Fluid overload, unspecified
[2019-12-27 08:28] LABS: Basophils # (auto) 0.08 K/uL (0-0.2); Basophils % (auto) 0.6 %; Eosinophils # (auto) 0.24 K/uL (0-0.5); Eosinophils % (auto) 1.8 %; Immature Granulocytes % (auto) 0.7 %; Lymphocytes # (auto) 1.42 K/uL (1.2-3.4); Lymphocytes % (auto) 10.5 %; Monocytes # (auto) 1.61 K/uL (0.11-0.59); Monocytes % (auto) 11.9 %; Neutrophils % (auto) 74.5 %
[2019-12-27 08:29] LABS: Calcium 8.4 mg/dl (8.5-10.1); Creatinine Clr Calc Pharmacy 93.1 ml/min; Est GFR (African American) 102.7; Est GFR (Non-African American) 88.6
[2019-12-27] MEDS ORDERED: POTASSIUM CHLORIDE / WTR 10 MEQ/100 ML PLCT IV SCH (08:30)
[2019-12-27] MEDS: CETIRIZINE HCL 10 MG TABLET PO SCH (09:58)
[2019-12-27] MEDS: LETROZOLE 2.5 MG TAB PO SCH (09:58)
[2019-12-27] MEDS: PANTOprazole 40 MG TAB PO SCH (09:58)
[2019-12-27] MEDS: SODIUM BICARBONATE 650 MG TAB PO SCH ×2 (09:59→20:59)
[2019-12-27] MEDS: APIXABAN 5 MG TABLET PO SCH ×2 (09:59→20:59)
[2019-12-27] MEDS: SOTALOL HCL 80 MG TAB PO SCH ×2 (09:59→21:00)
[2019-12-27] MEDS: POTASSIUM CHLORIDE 20 MEQ TABCR PO SCH ×3 (09:59→20:59)
[2019-12-27] MEDS ORDERED: FUROSEMIDE 20 MG in SYRINGE 0 ML IV SCH (11:15)
[2019-12-27] MEDS: cefTRIAXone SODIUM 2,000 MG in DEXTROSE 5% 50 ML IV SCH (12:12)
--- NOTE | 2019-12-27 12:58 | Surgery Progress Note ---
Date of Service December 27, 2019 Assessment & Plan (1) Acute appendicitis with perforation, generalized peritonitis, and gangrene: Postoperative day #4 status post open appendectomy White count fluctuating, up to 13.5 today (12.7 yesterday), afebrile Having diarrhea, 8 stools within last 24 hours, will check c. diff Would continue antibiotics for now Continue to ambulate Advance diet to low fiber Medicine following, appreciate comanagement Dr. Torres covering this weekend. Dr. Yañez has seen and examined pt, agrees with above. Admission and Anticipated Discharge Date Admission Date: December 23, 2019 Subjective feeling better today, was able to shower and wash hair loose stools mostly water and flecks of stool tolerating full liquids pain controlled Physical Exam Constitutional: WD/WN, vitals as above no acute distress and not ill appearing Respiratory: normal respiratory effort; no respiratory distress and no labored breathing Gastrointestinal (Abdomen): Inspection/Auscultation: abdomen normal to inspection and + abdominal surgical drain present (serosanguineous output); abdomen not distended Percussion/Palpation: + abdomen tender (at midline inci gamaliel) and abdomen soft; no guarding and abdomen not rigid Skin: no rashes, warm and dry + incision (midline incision with valencia present and intact, no drainage, ) erythema along entire course of incision Psychiatric: A+Ox3, euthymic affect Results & Data ([facility]) Vital Signs (Past 12 Hours) Vital Signs Temp Pulse Resp BP Pulse Ox 12/27/19 08:19 37.0 C 61 18 123/75 96 12/27/19 05:15 37 C 60 18 115/70 95 Laboratory Results 12/27/19 12/27/19 12/27/19 Range/Units 09:45 07:41 07:41 WBC 13.55 H (4.8-10.8) K/uL RBC 4.19 L (4.2-5.4) M/uL Hgb 12.4 (12.0-16.0) g/dL Hct 37.8 (37-47) % MCV 90.2 (80-100) fL MCH 29.6 (25-34) pg MCHC 32.8 (32-36) g/dL RDW Std Deviation 45.4 (36.4-46.3) fL RDW Coeff of Ken 13.7 (11.5-14.5) % Plt Count 165 (130-400) K/uL MPV 11.4 H (7.4-10.4) fL Immature Gran % (Auto) 0.7 % Neut % (Auto) 74.5 % Lymph % (Auto) 10.5 % Potter % (Auto) 11.9 % Eos % (Auto) 1.8 % Baso % (Auto) 0.6 % Neut # (Auto) 10.10 H (1.4-6.5) K/uL Lymph # (Auto) 1.42 (1.2-3.4) K/uL Potter # (Auto) 1.61 H (0.11-0.59) K/uL Eos # (Auto) 0.24 (0-0.5) K/uL Baso # (Auto) 0.08 (0-0.2) K/uL Immature Gran # (Auto) 0.10 H (0.00-0.02) K/uL Sodium 138 (136-145) mmol/L Potassium 3.4 L (3.5-5.1) mmol/L Chloride 107 (98-107) mmol/L Carbon Dioxide 22 (21-32) mmol/L Anion Gap 8.0 (3-11) BUN 7 (7-18) mg/dl Creatinine 0.55 L (0.6-1.2) mg/dl Est Cr Clr Drug Dosing 93.1 ml/min Est GFR ( Amer) 102.7 Est GFR (Non-Af Amer) 88.6 BUN/Creatinine Ratio 13.0 (10-20) Glucose 103 H (70-99) mg/dl Calcium 8.4 L D (8.5-10.1) mg/dl (1) Acute appendicitis with perforation, generalized peritonitis, and gangrene Appendicitis abscess presence: without abscess Qualified Code(s): K35.20 - Acute appendicitis with generalized peritonitis, without abscess
[2019-12-27] MEDS: FUROSEMIDE 20 MG in SYRINGE 0 ML IV SCH (19:37)
[2019-12-27] MEDS: ZOLPIDEM TARTRATE 5 MG TAB PO SCH (21:04)
[2019-12-28] MEDS: metroNIDAZOLE 500 MG/100 ML BAG IV SCH ×3 (04:03→18:28)
[2019-12-28] MEDS: LEVOTHYROXINE SODIUM 88 MCG TABLET PO SCH (05:59)
[2019-12-28 06:12] LABS: Hematocrit (blood only) 37.4 % (37-47); Hemoglobin 11.8 g/dL (12.0-16.0); Mean Corpuscular Hgb Conc 31.6 g/dL (32-36); Mean Corpuscular Volume 88.8 fL (80-100); Mean Platelet Volume 11.2 fL (7.4-10.4); Platelet Count 175 K/uL (130-400); RDW Coefficient of Variation 13.7 % (11.5-14.5); RDW Standard Deviation 45.2 fL (36.4-46.3); Red Blood Count 4.21 M/uL (4.2-5.4); White Blood Count 11.33 K/uL (4.8-10.8)
[2019-12-28 06:35] LABS: Basophils # (auto) 0.05 K/uL (0-0.2); Basophils % (auto) 0.4 %; Eosinophils # (auto) 0.27 K/uL (0-0.5); Eosinophils % (auto) 2.4 %; Immature Granulocytes # (auto) 0.09 K/uL (0.00-0.02); Immature Granulocytes % (auto) 0.8 %; Lymphocytes # (auto) 1.57 K/uL (1.2-3.4); Lymphocytes % (auto) 13.9 %; Monocytes % (auto) 14.1 %; Neutrophils # (auto) 7.75 K/uL (1.4-6.5); Neutrophils % (auto) 68.4 %
[2019-12-28 06:42] LABS: BUN Creatinine Ratio 13.6 (10-20); Creatinine Clr Calc Pharmacy 103.9 ml/min; Est GFR (African American) 106.6; Potassium 3.5 mmol/L (3.5-5.1)
[2019-12-28] MEDS: SODIUM BICARBONATE 650 MG TAB PO SCH (07:28)
[2019-12-28] MEDS: FUROSEMIDE 20 MG in SYRINGE 0 ML IV SCH ×2 (07:28→17:21)
[2019-12-28] MEDS: POTASSIUM CHLORIDE 20 MEQ TABCR PO SCH ×3 (07:29→22:14)
[2019-12-28] MEDS: SOTALOL HCL 80 MG TAB PO SCH ×2 (07:30→22:14)
[2019-12-28] MEDS: APIXABAN 5 MG TABLET PO SCH ×2 (07:30→22:14)
[2019-12-28] MEDS: CETIRIZINE HCL 10 MG TABLET PO SCH (07:30)
[2019-12-28] MEDS: LETROZOLE 2.5 MG TAB PO SCH (07:31)
--- NOTE | 2019-12-28 08:50 | Surgery Progress Note ---
Date of Service December 28, 2019 Assessment & Plan (1) Acute appendicitis with perforation, generalized peritonitis, and gangrene: improving WBC down to 11, cont IV abx seen with Dr. Torres will need another 1-2 days in hospital Admission and Anticipated Discharge Date Admission Date: December 23, 2019 Subjective tolerating regular diet, less diarrhea, no pain, increasing flatus Physical Exam Gastrointestinal (Abdomen): Inspection/Auscultation: + abdominal surgical incision (some erythema ? valencia, drainage serous); abdomen not distended Percussion/Palpation: abdomen soft Results & Data ([facility]) Vital Signs (Past 12 Hours) Vital Signs Temp Pulse Resp BP Pulse Ox 12/28/19 08:10 36.6 C 59 L 20 135/76 96 12/28/19 03:26 37.1 C 60 18 108/56 L 94 12/27/19 23:36 36.9 C 61 18 129/75 97 PG Care Time/CCT Total # of Minutes Spent Total Time Spent with Patient: Total time spent is greater than 50% in coordination of care (as documented) at patient's floor/unit and/or counseling patient: Coding Level of Care Code 67224 Subs Hosp Care Lvl 1 Diagnoses Acute appendicitis with perforation, generalized peritonitis, and gangrene K3 5.20 Appendicitis abscess presence: without abscess (1) Acute appendicitis with perforation, generalized peritonitis, and gangrene Appendicitis abscess presence: without abscess Qualified Code(s): K35.20 - Acute appendicitis with generalized peritonitis, without abscess
[2019-12-28] MEDS: cefTRIAXone SODIUM 2,000 MG in DEXTROSE 5% 50 ML IV SCH (11:11)
--- NOTE | 2019-12-28 15:37 | Hospitalist Progress Note ---
Date of Service December 28, 2019 Assessment & Plan (1) Volume overload: - Pt 8+ L positive since admission, typical dry weight of 189 lbs, currently 198, down three pounds from yesterday - responded well to Lasix 20mg IV BID will give dose this evening and then hold morning dose, re-assess volume status minimal edema in legs, lungs are clear, she is feeling well (2) Acute appendicitis with perforation, generalized peritonitis, and gangrene: -POD #5 s/p open appendectomy. - Management per general surgery. - Diet advancement, pain control, DVT proph per surgery. - Cont IV rocephin w/ flagyl, WBC is 11k, no fever, vitals stable - BCx negative to date -diarrhea was yellow today stop bicarb as her HCO3 is normal (3) Sepsis: -2nd to appendicitis with perforation/gangrene. -Cont IV antibiotics. -Follow blood cultures, no growth -off fluids due as above as sepsis resolved (4) PAF (paroxysmal atrial fibrillation): History of such. Continue sotalol. Continue eliquis BID. No PAF thus far on tele since admission. (5) Hypokalemia: 3.5 replace PO repeat labs in AM (6) Hypomagnesemia: replaced and resolved. 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 Never has had difficulties due to such. (8) Hypothyroid: TSH 04/2019 wnl. Cont synthroid. (9) Hypertension: cont to hold HCTZ and amlodipine. (10) Acute kidney injury: sepsis-associated ATN with resulting oliguria. resolved. bmp am. (11) Belching: resolved with PPI and improvement in overall bowel function (12) UTI (urinary tract infection): - Urine culture growing e. coli, follow sensitivities, pt asymptomatic, continue IV abx as above. (13) DVT prophylaxis: eliquis 5mg BID CODE: DNR/DNI Dispo: From [facility], lives with in independent living, has bed confirmed by CM for skilled side, dc per primary team. Medicine will follow along. Admission and Anticipated Discharge Date Admission Date: December 23, 2019 Subjective patient doing well c/o some pain in RLQ due to drain, no nausea, tolerating light diet she had a loose, yellow stool, no further blood or dark stools no fever/chills, no chest pain, no dyspnea reviewed labs, WBC 11k, Hb 11.8, K 3.5, Cr 0.49 C diff tested yesterday - NEGATIVE patient feels like she still has some swelling in legs, not too much discussed getting one more dose of Lasix, hold it tomorrow Review of Systems Review of Systems: All systems reviewed & are unremarkable except as noted in Subjective Physical Exam Constitutional: WD/WN, vitals as above Eyes: PERRL, conjunctivae normal, anicteric sclerae ENMT: external ear and nose normal, oropharynx normal Neck: trachea midline, no thyromegaly Respiratory: normal respiratory effort, lungs clear to auscultation Cardiovascular: Rate/Rhythm: regular rate and regular rhythm Heart Sounds: normal S1 and normal S2; no murmur Vessels: no JVD Extremities: normal capillary refill and + edema (trace in lower legs) Gastrointestinal (Abdomen): Inspection/Auscultation: normal bowel sounds, + abdominal surgical incision and + abdominal surgical drain present; abdomen not distended Percussion/Palpation: + abdomen tender and abdomen soft; no guarding and abdomen not rigid Musculoskeletal: no cyanosis or clubbing, extremities motor strength 5/5 Skin: no rashes, warm and dry Neurologic: patellar DTR's 2+ bilat, sensation intact and PERRL, EOMI, accommodation nl, no face palsy, no dysarthria Psychiatric: A+Ox3, euthymic affect Lymphatic: no cervical or axillary lymphadenopathy Results & Data Results & Data ([facility]) Vital Signs (Past 12 Hours) Vital Signs Temp Pulse Pulse Resp BP Pulse Ox Pulse Ox 12/28/19 11:47 37.0 C 60 20 113/74 95 12/28/19 10:00 97 12/28/19 09:00 70 12/28/19 08:10 36.6 C 59 L 20 135/76 96 Laboratory Results Laboratory Results - last 24 hr 12/27/19 12/28/19 12/28/19 16:33 05:59 05:59 WBC 11.33 H RBC 4.21 Hgb 11.8 L Hct 37.4 MCV 88.8 MCH 28.0 MCHC 31.6 L RDW Std Deviation 45.2 RDW Coeff of Ken 13.7 Plt Count 175 MPV 11.2 H Immature Gran % (Auto) 0.8 Neut % (Auto) 68.4 Lymph % (Auto) 13.9 [place] % (Auto) 14.1 Eos % (Auto) 2.4 Baso % (Auto) 0.4 Neut # (Auto) 7.75 H Lymph # (Auto) 1.57 [place] # (Auto) 1.60 H Eos # (Auto) 0.27 Baso # (Auto) 0.05 Immature Gran # (Auto) 0.09 H Sodium 138 Potassium 3.5 Chloride 107 Carbon Dioxide 23 Anion Gap 8.0 BUN 7 Creatinine 0.49 L Est Cr Clr Drug Dosing 103.9 Est GFR ( Amer) 106.6 Est GFR (Non-Af Amer) 92.0 BUN/Creatinine Ratio 13.6 Glucose 113 H Calcium 8.0 L Stl C. diff Tox B Gene Negative Cdiff Gene Medications Administered Current Inpatient Medications Acetaminophen (Acetaminophen 325 Mg Tab) 650 mg PO Q4H PRN PRN Reason: mild pain Stop: 01/22/20 07:31 Last Admin: 12/26/19 07:36 Dose: 650 mg Documented by: Amlodipine Besylate (Amlodipine Besylate 5 Mg Tab) 2.5 mg PO DAILY [facility] Stop: 01/22/20 08:59 Apixaban (Apixaban 5 Mg Tablet) 5 mg PO BID [facility] Stop: 01/23/20 20:59 Last Admin: 12/28/19 07:30 Dose: 5 mg Documented by: Cetirizine HCl (Cetirizine Hcl 10 Mg Tablet) 10 mg PO DAILY [facility] Stop: 01/22/20 08:59 Last Admin: 12/28/19 07:30 Dose: 10 mg Documented by: Fluticasone Propionate (Fluticasone Propionate Na Spr 16 Gm Btl) 2 sprays NA DAILY PRN PRN Reason: Nasal Congestion Stop: 01/22/20 01:32 Metronidazole (Flagyl) 500 mg in 100 mls @ 100 mls/hr IV Q8H [facility] Stop: 12/30/19 11:14 Last Infusion: 12/28/19 13:27 Dose: Infused Documented by: Ceftriaxone Sodium 2,000 mg/ (Dextrose) 70 mls @ 100 mls/hr IV Q24H [facility]; Protocol Stop: 01/06/20 10:59 Last Infusion: 12/28/19 14:03 Dose: Infused Documented by: Furosemide 20 mg/ Syringe 2 mls @ 4 mls/min IV BID17 [facility] Stop: 12/28/19 23:59 Last Admin: 12/28/19 07:28 Dose: 4 mls/min Documented by: Letrozole (Letrozole 2.5 Mg Tab) 2.5 mg PO DAILY [facility] Stop: 01/22/20 08:59 Last Admin: 12/28/19 07:31 Dose: 2.5 mg Documented by: Levothyroxine Sodium (Levothyroxine Sodium 88 Mcg Tablet) 88 mcg PO DAILYBB [facility] Stop: 01/22/20 06:29 Last Admin: 12/28/19 05:59 Dose: 88 mcg Documented by: Morphine Sulfate (Morphine Sulfate 2 Mg/Ml [place]) 2 mg IV Q3H PRN PRN Reason: moderate pain Stop: 01/07/20 13:33 Ondansetron HCl (Ondansetron Inj 2 Mg/Ml 2 Ml Vial) 4 mg IV Q6H PRN PRN Reason: Nausea Stop: 01/22/20 01:32 Oxycodone/Acetaminophen (Oxycodone/Acetaminophen 5mg/325mg Tab) 1 tab PO Q4H PRN PRN Reason: Pain Stop: 01/06/20 01:32 Last Admin: 12/25/19 07:58 Dose: 1 tab Documented by: Oxycodone/Acetaminophen (Oxycodone/Acetaminophen 5mg/325mg Tab) 2 tab PO Q4H PRN PRN Reason: Severe Pain (7-10) Stop: 01/07/20 13:32 Potassium Chloride (Potassium Chloride 20 Meq Tabcr) 20 meq PO TID [facility] Stop: 01/25/20 13:59 Last Admin: 12/28/19 14:37 Dose: 20 meq Documented by: Simethicone (Simethicone 80 Mg Chew) 80 mg PO Q6H PRN PRN Reason: excess gas Stop: 01/23/20 13:21 Sotalol HCl (Sotalol Hcl 80 Mg Tab) 80 mg PO BID [facility] Stop: 01/22/20 08:59 Last Admin: 12/28/19 07:30 Dose: 80 mg Documented by: Sucralfate (Sucralfate 1 Gm/10 Ml Udc) 1 gm PO QID PRN PRN Reason: upset stomach, excessive burpi Stop: 01/23/20 16:59 Last Admin: 12/24/19 14:09 Dose: 1 gm Documented by: Triamterene/HCTZ (Triamterene/Hctz 37.5/25mg Tab) 1 tab PO DAILY [facility] Stop: 01/22/20 08:59 Zolpidem Tartrate (Zolpidem Tartrate 5 Mg Tab) 5 mg PO HS [facility] Stop: 01/22/20 20:59 Last Admin: 12/27/19 21:04 Dose: 5 mg Documented by: PG Care Time/CCT Total # of Minutes Spent Total Time Spent with Patient: Total time spent is greater than 50% in coordination of care (as documented) at patient's floor/unit and/or counseling patient: Coding Level of Care Code 40613 Subseq Hosp Care Lvl 3 Diagnoses Volume overload E87.70 Hypervolemia type: unspecified Acute appendicitis with perforation, generalized peritonitis, and gangrene K35.20 Appendicitis abscess presence: without abscess Sepsis A41.9 Sepsis type: sepsis due to unspecified organism Sepsis acute organ dysfunction status: unspecified PAF (paroxysmal atrial fibrillation) I48.0 Hypokalemia E87.6 Hypomagnesemia E83.42 Malrotation of intestine Q43.3 Hypothyroid E89.0 Hypothyroidism type: postoperative Hypertension I10 Hypertension type: essential hypertension Acute kidney injury N17.9 Belching R14.2 UTI (urinary tract infection) N39.0 DVT prophylaxis Z29.9 (1) Volume overload Hypervolemia type: unspecified Qualified Code(s): E87.70 - Fluid overload, unspecified (2) Acute appendicitis with perforation, generalized peritonitis, and gangrene Appendicitis abscess presence: without abscess Qualified Code(s): K35.20 - Acute appendicitis with generalized peritonitis, without abscess (3) Sepsis Sepsis type: sepsis due to unspecified organism Sepsis acute organ dysfunction status: unspecified Qualified Code(s): A41.9 - Sepsis, unspecified organism (4) Hypothyroid Hypothyroidism type: postoperative Qualified Code(s): E89.0 - Postprocedural hypothyroidism (5) Hypertension Hypertension type: essential hypertension Qualified Code(s): I10 - Essential (primary) hypertension
[2019-12-28] MEDS: ZOLPIDEM TARTRATE 5 MG TAB PO SCH (22:07)
[2019-12-29] MEDS: metroNIDAZOLE 500 MG/100 ML BAG IV SCH ×3 (03:16→18:45)
[2019-12-29] MEDS: LEVOTHYROXINE SODIUM 88 MCG TABLET PO SCH (05:51)
[2019-12-29 06:55] LABS: Basophils # (auto) 0.05 K/uL (0-0.2); Basophils % (auto) 0.5 %; Eosinophils % (auto) 2.9 %; Hematocrit (blood only) 36.5 % (37-47); Immature Granulocytes # (auto) 0.16 K/uL (0.00-0.02); Immature Granulocytes % (auto) 1.6 %; Lymphocytes # (auto) 1.47 K/uL (1.2-3.4); Lymphocytes % (auto) 14.4 %; Mean Corpuscular Hemoglobin 29.3 pg (25-34); Mean Corpuscular Hgb Conc 32.9 g/dL (32-36); Monocytes # (auto) 1.42 K/uL (0.11-0.59); Monocytes % (auto) 13.9 %; Neutrophils # (auto) 6.81 K/uL (1.4-6.5); Neutrophils % (auto) 66.7 %; Platelet Count 227 K/uL (130-400); RDW Coefficient of Variation 13.9 % (11.5-14.5); RDW Standard Deviation 45.6 fL (36.4-46.3); White Blood Count 10.21 K/uL (4.8-10.8)
[2019-12-29 07:24] LABS: BUN Creatinine Ratio 14.6 (10-20); Calcium 8.2 mg/dl (8.5-10.1); Creatinine Clr Calc Pharmacy 101.6 ml/min; Est GFR (African American) 105.9; Est GFR (Non-African American) 91.4; Potassium 3.5 mmol/L (3.5-5.1)
[2019-12-29] MEDS: LETROZOLE 2.5 MG TAB PO SCH (08:05)
[2019-12-29] MEDS: POTASSIUM CHLORIDE 20 MEQ TABCR PO SCH ×3 (08:05→21:03)
[2019-12-29] MEDS: CETIRIZINE HCL 10 MG TABLET PO SCH (08:05)
[2019-12-29] MEDS: SOTALOL HCL 80 MG TAB PO SCH ×2 (08:06→21:04)
--- NOTE | 2019-12-29 08:19 | Surgery Progress Note ---
Date of Service December 29, 2019 Assessment & Plan (1) Acute appendicitis with perforation, generalized peritonitis, and gangrene: Patient continues to improve WBC: 10 and patient afebrile; she continues on IV abx Will continue to monitor wound erythema; overall unchanged from yesterday Patient states she will need a Covid-19 test prior to discharge back to [facility]; will plan to have this ordered tomorrow with potential plans for discharge this upcoming Monday ELIZABETH to remain in place for now; 40cc serosang. output Appreciate hospitalist assistance with patient Pt seen and examined with Dr. Torres Admission and Anticipated Discharge Date Admission Date: December 23, 2019 Subjective Patient seen sitting in chair eating breakfast. Says she is feeling well today. Tolerating a diet. Having more normal BM's. Physical Exam Physical Exam: awake/alert; sitting up in chair Gastrointestinal (Abdomen): Inspection/Auscultation: + abdominal surgical incision (midline incision intact with val[place];erythema noted-same as yesterday); abdomen not distended Percussion/Palpation: abdomen soft Results & Data ([facility]) Vital Signs (Past 12 Hours) Vital Signs Temp Pulse Resp BP Pulse Ox 12/29/19 08:03 37.0 C 83 18 114/65 94 12/29/19 04:04 36.3 C L 73 18 107/65 98 12/29/19 00:04 37 C 80 18 131/86 93 PG Care Time/CCT Total # of Minutes Spent Total Time Spent with Patient: Total time spent is greater than 50% in coordination of care (as documented) at patient's floor/unit and/or counseling patient: Coding Level of Care Code 74851 Subs Hosp Care [facility] 1 Diagnoses Acute appendicitis with perforation, generalized peritonitis, and gangrene K35.20 Appendicitis abscess presence: without abscess (1) Acute appendicitis with perforation, generalized peritonitis, and gangrene Appendicitis abscess presence: without abscess Qualified Code(s): K35.20 - Acute appendicitis with generalized peritonitis, without abscess
[2019-12-29] MEDS: APIXABAN 5 MG TABLET PO SCH ×2 (09:53→21:03)
[2019-12-29] MEDS: cefTRIAXone SODIUM 2,000 MG in DEXTROSE 5% 50 ML IV SCH (10:58)
[2019-12-29] MEDS ORDERED: FUROSEMIDE 20 MG in SYRINGE 0 ML IV ONE (13:00)
--- NOTE | 2019-12-29 16:23 | Hospitalist Progress Note ---
Date of Service December 29, 2019 Assessment & Plan (1) Volume overload: positive 8 liters and weight up significantly from admission, now improved - responded well to Lasix 20mg IV BID will give one more dose of Lasix 20mg IV minimal edema in legs, lungs are clear, she is feeling well will sign off at this time, no further Lasix needed encourage her to increase activity, mobilize remaining fluids (2) Acute appendicitis with perforation, generalized peritonitis, and gangrene: -POD #6 s/p open appendectomy. - Management per general surgery. - Diet advancement, pain control, DVT proph per surgery. - Cont IV rocephin w/ flagyl, WBC is 10k, no fever, vitals stable - BCx negative to date -diarrhea was yellow today stop bicarb as her HCO3 is normal (3) Sepsis: -2nd to appendicitis with perforation/gangrene. -Cont IV antibiotics. -Follow blood cultures, no growth transfer to medical/surgical floor (4) PAF (paroxysmal atrial fibrillation): History of such. Continue sotalol. Continue eliquis BID. No PAF thus far on tele since admission. (5) Hypokalemia: resolved (6) Hypomagnesemia: replaced and resolved. 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 Never has had difficulties due to such. (8) Hypothyroid: TSH 04/2019 wnl. Cont synthroid. (9) Hypertension: cont to hold HCTZ and amlodipine. (10) Acute kidney injury: sepsis-associated ATN with resulting oliguria. resolved. bmp am. (11) Belching: resolved with PPI and improvement in overall bowel function (12) UTI (urinary tract infection): - Urine culture growing e. coli, follow sensitivities, pt asymptomatic, continue IV abx as above. (13) DVT prophylaxis: eliquis 5mg BID CODE: DNR/DNI Dispo: From [facility], lives with in independent living, has bed confirmed by CM for skilled side, dc per primary team surgery plans for discharge on Monday she is stable medically, we will sign off, please call with any new problems Admission and Anticipated Discharge Date Admission Date: December 23, 2019 Subjective patient doing well minimal edema in legs she is eating well, having loose stools but normal color reviewed labs, Cr and electrolytes stable general surgery following will transfer to medical/surgical floor as she has been stable from telemetry perspective will give one more dose of Lasix 20mg IV plan to sign off at this time, likely for discharge on Monday Review of Systems Review of Systems: All systems reviewed & are unremarkable except as noted in Subjective Constitutional: no fever, no chills, no sweats, no fatigue and no weakness Respiratory: no cough and no dyspnea Cardiovascular: + edema (trace bilaterally); no chest pain and no syncope Gastrointestinal: + abdominal pain (RLQ), + early satiety and + diarrhea/loose stools; no nausea, no vomiting and no constipation Physical Exam Constitutional: WD/WN, vitals as above Eyes: PERRL, conjunctivae normal, anicteric sclerae ENMT: external ear and nose normal, oropharynx normal Neck: trachea midline, no thyromegaly Respiratory: normal respiratory effort, lungs clear to auscultation Cardiovascular: RRR, no murmur, no edema Rate/Rhythm: regular rate and regular rhythm Heart Sounds: normal S1 and normal S2; no murmur Vessels: no JVD Extremities: normal capillary refill and + edema (trace in lower legs) Gastrointestinal (Abdomen): Inspection/Auscultation: normal bowel sounds, + abdominal surgical incision and + abdominal surgical drain present; abdomen not distended Percussion/Palpation: + abdomen tender and abdomen soft; no guarding and abdomen not rigid Musculoskeletal: no cyanosis or clubbing, extremities motor strength 5/5 Skin: no rashes, warm and dry Neurologic: patellar DTR's 2+ bilat, sensation intact and PERRL, EOMI, accommodation nl, no face palsy, no dysarthria Psychiatric: A+Ox3, euthymic affect Lymphatic: no cervical or axillary lymphadenopathy Results & Data Results & Data ([facility]) Vital Signs (Past 12 Hours) Vital Signs Temp Pulse Pulse Resp BP BP Pulse Ox 12/29/19 15:02 36.7 C 90 18 120/75 97 12/29/19 09:00 63 12/29/19 08:03 37.0 C 83 18 114/65 94 Pulse Ox 12/29/19 15:02 12/29/19 09:00 94 12/29/19 08:03 Laboratory Results Laboratory Results - last 24 hr 12/29/19 12/29/19 06:10 06:10 WBC 10.21 RBC 4.10 L Hgb 12.0 Hct 36.5 L MCV 89.0 MCH 29.3 MCHC 32.9 RDW Std Deviation 45.6 RDW Coeff of Ken 13.9 Plt Count 227 MPV 12.0 H Immature Gran % (Auto) 1.6 Neut % (Auto) 66.7 Lymph % (Auto) 14.4 [place] % (Auto) 13.9 Eos % (Auto) 2.9 Baso % (Auto) 0.5 Neut # (Auto) 6.81 H Lymph # (Auto) 1.47 [place] # (Auto) 1.42 H Eos # (Auto) 0.30 Baso # (Auto) 0.05 Immature Gran # (Auto) 0.16 H Sodium 139 Potassium 3.5 Chloride 107 Carbon Dioxide 26 Anion Gap 7.0 BUN 7 Creatinine 0.50 L Est Cr Clr Drug Dosing 101.6 Est GFR ( Amer) 105.9 Est GFR (Non-Af Amer) 91.4 BUN/Creatinine Ratio 14.6 Glucose 110 H Calcium 8.2 L Medications Administered Current Inpatient Medications Acetaminophen (Acetaminophen 325 Mg Tab) 650 mg PO Q4H PRN PRN Reason: mild pain Stop: 01/22/20 07:31 Last Admin: 12/26/19 07:36 Dose: 650 mg Documented by: Apixaban (Apixaban 5 Mg Tablet) 5 mg PO BID [facility] Stop: 01/23/20 20:59 Last Admin: 12/29/19 09:53 Dose: 5 mg Documented by: Cetirizine HCl (Cetirizine Hcl 10 Mg Tablet) 10 mg PO DAILY [facility] Stop: 01/22/20 08:59 Last Admin: 12/29/19 08:05 Dose: 10 mg Documented by: Fluticasone Propionate (Fluticasone Propionate Na Spr 16 Gm Btl) 2 sprays NA DAILY PRN PRN Reason: Nasal Congestion Stop: 01/22/20 01:32 Metronidazole (Flagyl) 500 mg in 100 mls @ 100 mls/hr IV Q8H [facility] Stop: 12/30/19 11:14 Last Infusion: 12/29/19 12:54 Dose: Infused Documented by: Ceftriaxone Sodium 2,000 mg/ (Dextrose) 70 mls @ 100 mls/hr IV Q24H [facility]; Protocol Stop: 01/06/20 10:59 Last Infusion: 12/29/19 11:40 Dose: Infused Documented by: Letrozole (Letrozole 2.5 Mg Tab) 2.5 mg PO DAILY [facility] Stop: 01/22/20 08:59 Last Admin: 12/29/19 08:05 Dose: 2.5 mg Documented by: Levothyroxine Sodium (Levothyroxine Sodium 88 Mcg Tablet) 88 mcg PO DAILYBB [facility] Stop: 01/22/20 06:29 Last Admin: 12/29/19 05:51 Dose: 88 mcg Documented by: Ondansetron HCl (Ondansetron Inj 2 Mg/Ml 2 Ml Vial) 4 mg IV Q6H PRN PRN Reason: Nausea Stop: 01/22/20 01:32 Oxycodone/Acetaminophen (Oxycodone/Acetaminophen 5mg/325mg Tab) 1 tab PO Q4H PRN PRN Reason: Pain Stop: 01/06/20 01:32 Last Admin: 12/25/19 07:58 Dose: 1 tab Documented by: Potassium Chloride (Potassium Chloride 20 Meq Tabcr) 20 meq PO TID [facility] Stop: 01/25/20 13:59 Last Admin: 12/29/19 13:22 Dose: 20 meq Documented by: Simethicone (Simethicone 80 Mg Chew) 80 mg PO Q6H PRN PRN Reason: excess gas Stop: 01/23/20 13:21 Sotalol HCl (Sotalol Hcl 80 Mg Tab) 80 mg PO BID [facility] Stop: 01/22/20 08:59 Last Admin: 12/29/19 08:06 Dose: 80 mg Documented by: Sucralfate (Sucralfate 1 Gm/10 Ml Udc) 1 gm PO QID PRN PRN Reason: upset stomach, excessive burpi Stop: 01/23/20 16:59 Last Admin: 12/24/19 14:09 Dose: 1 gm Documented by: Zolpidem Tartrate (Zolpidem Tartrate 5 Mg Tab) 5 mg PO HS [facility] Stop: 01/22/20 20:59 Last Admin: 12/28/19 22:07 Dose: 5 mg Documented by: PG Care Time/CCT Total # of Minutes Spent Total Time Spent with Patient: Total time spent is greater than 50% in coordination of care (as documented) at patient's floor/unit and/or counseling patient: Coding Level of Care Code 35428 Subseq Hosp Care Lvl 2 Diagnoses Volume overload E87.70 Hypervolemia type: unspecified Acute appendicitis with perforation, generalized peritonitis, and gangrene K35.20 Appendicitis abscess presence: without abscess Sepsis A41.9 Sepsis acute organ dysfunction status: unspecified Sepsis type: sepsis due to unspecified organism PAF (paroxysmal atrial fibrillation) I48.0 Hypokalemia E87.6 Hypomagnesemia E83.42 Malrotation of intestine Q43.3 Hypothyroid E89.0 Hypothyroidism type: postoperative Hypertension I10 Hypertension type: essential hypertension Acute kidney injury N17.9 Belching R14.2 UTI (urinary tract infection) N39.0 DVT prophylaxis Z29.9 (1) Acute appendicitis with perforation, generalized peritonitis, and gangrene Appendicitis abscess presence: without abscess Qualified Code(s): K35.20 - Acute appendicitis with generalized peritonitis, without abscess (2) Hypothyroid Hypothyroidism type: postoperative Qualified Code(s): E89.0 - Postprocedural hypothyroidism (3) Sepsis Sepsis acute organ dysfunction status: unspecified Sepsis type: sepsis due to unspecified organism Qualified Code(s): A41.9 - Sepsis, unspecified organism (4) Hypertension Hypertension type: essential hypertension Qualified Code(s): I10 - Essential (primary) hypertension (5) Volume overload Hypervolemia type: unspecified Qualified Code(s): E87.70 - Fluid overload, unspecified
[2019-12-29] MEDS: ZOLPIDEM TARTRATE 5 MG TAB PO SCH (21:02)
[2019-12-30] MEDS: metroNIDAZOLE 500 MG/100 ML BAG IV SCH (04:45)
[2019-12-30] MEDS: LEVOTHYROXINE SODIUM 88 MCG TABLET PO SCH (04:49)
[2019-12-30 06:13] LABS: Creatinine Clr Calc Pharmacy 96.9 ml/min; Est GFR (African American) 104.6; Est GFR (Non-African American) 90.2
[2019-12-30] MEDS: SOTALOL HCL 80 MG TAB PO SCH (08:19)
[2019-12-30] MEDS: APIXABAN 5 MG TABLET PO SCH (08:20)
[2019-12-30] MEDS: CETIRIZINE HCL 10 MG TABLET PO SCH (08:20)
[2019-12-30] MEDS: POTASSIUM CHLORIDE 20 MEQ TABCR PO SCH ×2 (08:20→12:38)
[2019-12-30] MEDS: LETROZOLE 2.5 MG TAB PO SCH (08:20)
--- NOTE | 2019-12-30 08:52 | Hospitalist Progress Note ---
Date of Service December 30, 2019 Assessment & Plan (1) Volume overload: Resolved (2) Acute appendicitis with perforation, generalized peritonitis, and gangrene: -POD #8 s/p open appendectomy. - Management per general surgery. Recommend day of discharge 12/29 -Tolerated diet advancement (3) Sepsis: -2nd to appendicitis with perforation/gangrene. -Follow blood cultures, no growth (4) PAF (paroxysmal atrial fibrillation): History of such. Continue sotalol plus Eliquis BID. No PAF on tele since admission. (5) Hypokalemia: resolved (6) Hypomagnesemia: replaced and resolved. 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 Never has had difficulties due to such. (8) Hypothyroid: TSH 04/2019 wnl. Cont synthroid. (9) Hypertension: Resume HCTZ and amlodipine. (10) Acute kidney injury: sepsis-associated ATN with resulting oliguria. resolved. (11) Belching: resolved with PPI and improvement in overall bowel function (12) UTI (urinary tract infection): - Urine culture growing e. coli, both sensitive to ceftriaxone which she had (13) DVT prophylaxis: eliquis 5mg BID CODE: DNR/DNI Dispo: From [facility], lives with in independent living, has bed confirmed by for [facility], [place] per primary team surgery plans for discharge to [facility] Follow-up with Dr. Mason Admission and Anticipated Discharge Date Admission Date: December 23, 2019 Subjective Did see the patient this morning she formed any surgeries discharging her she has no questions or issues she wishes for me to address and she is still having minor postoperative surgical pain her drain was removed Review of Systems Review of Systems: No distress but mild fatigue no headache, blurry or double vision no speech or swallowing issues no chest pain, pressure or palpitations no shortness of breath, cough or wheezes Surgical site abdominal pain,, no nausea or vomiting, diarrhea or constipation no dysuria, hematuria or frequency no focal joint pain or swelling no back pain, CVA tenderness or radicular pain no bruising, bleeding or rashes no focal signs of weakness or numbness or altered sensation no complaints or anxiety or depression. Physical Exam Physical Exam: The patient appeared well Vital signs as documented. Lungs are clear to auscultation and appear unlabored Cardiac exam, Rhythm is regular.. No murmurs, rubs or gallops. Abdominal exam reveals normal bowel sounds, soft non tender, no masses Extremities are nonedematous and both pedal pulses are normal. Neurologic exam is alert and oriented, no focal loss of strength or sensation Skin is without bruises or rashes Psychologically is without concerns for anxiety or depression. Results & Data Results & Data ([facility]) Vital Signs (Past 12 Hours) Vital Signs Temp Pulse Resp BP Pulse Ox 12/30/19 07:27 98.2 F 63 16 140/82 95 12/29/19 22:53 98.1 F 60 16 148/82 H 97 PG Care Time/CCT Total # of Minutes Spent Total Time Spent with Patient: Total time spent is greater than 50% in coordination of care (as documented) at patient's floor/unit and/or counseling patient: Coding Level of Care Code 45808 Subseq Hosp Care Lvl 2 Diagnoses Volume overload E87.70 Hypervolemia type: unspecified Acute appendicitis with perforation, generalized peritonitis, and gangrene K35.20 Appendicitis abscess presence: without abscess Sepsis A41.9 Sepsis acute organ dysfunction status: unspecified Sepsis type: sepsis due to unspecified organism PAF (paroxysmal atrial fibrillation) I48.0 Hypokalemia E87.6 Hypomagnesemia E83.42 Malrotation of intestine Q43.3 Hypothyroid E89.0 Hypothyroidism type: postoperative Hypertension I10 Hypertension type: essential hypertension Acute kidney injury N17.9 Belching R14.2 UTI (urinary tract infection) N39.0 DVT prophylaxis Z29.9 (1) Acute appendicitis with perforation, generalized peritonitis, and gangrene Appendicitis abscess presence: without abscess Qualified Code(s): K35.20 - Acute appendicitis with generalized peritonitis, without abscess (2) Hypothyroid Hypothyroidism type: postoperative Qualified Code(s): E89.0 - Postprocedural hypothyroidism (3) Sepsis Sepsis acute organ dysfunction status: unspecified Sepsis type: sepsis due to unspecified organism Qualified Code(s): A41.9 - Sepsis, unspecified organism (4) Hypertension Hypertension type: essential hypertension Qualified Code(s): I10 - Essential (primary) hypertension (5) Volume overload Hypervolemia type: unspecified Qualified Code(s): E87.70 - Fluid overload, unspecified
--- NOTE | 2019-12-30 09:00 | Surgery Progress Note ---
Date of Service December 30, 2019 Assessment & Plan (1) Acute appendicitis with perforation, generalized peritonitis, and gangrene: Patient clinically feeling well She is tolerating a regular diet Pain is well controlled ELIZABETH drain serosang (25cc); will remove today Her abdominal incision remains with some erythema, we popped 3 valencia from her incision- no purulent discharge present just some blood noted; Wound re-dressed with 4x4 gauze and medipore tape- to be changed daily Will discuss with case management discharge back to [facility] today if they can accept her; if not today then we will plan on tomorrow Will likely send out on some po augmentin Pt seen and examined with Dr. Torres Admission and Anticipated Discharge Date Admission Date: December 23, 2019 Subjective Patient states she had a very good night. Her BMs are starting to become normal. Not taking much for pain. Physical Exam Physical Exam: awake/alert Gastrointestinal (Abdomen): Inspection/Auscultation: + abdominal surgical incision (midline incision remains with erythema of middle portion) and + abdominal surgical drain present (serosang. output (25cc)) Percussion/Palpation: abdomen soft Results & Data ([facility]) Vital Signs (Past 12 Hours) Vital Signs Temp Pulse Resp BP Pulse Ox 12/30/19 07:27 36.8 C 63 16 140/82 95 12/29/19 22:53 36.7 C 60 16 148/82 H 97 PG Care Time/CCT Total # of Minutes Spent Total Time Spent with Patient: Total time spent is greater than 50% in coordination of care (as documented) at patient's floor/unit and/or counseling patient: Coding Level of Care Code 87225 Subs Hosp Care [facility] 1 Diagnoses Acute appendicitis with perforation, generalized peritonitis, and gangrene K35.20 Appendicitis abscess presence: without abscess (1) Acute appendicitis with perforation, generalized peritonitis, and gangrene Appendicitis abscess presence: without abscess Qualified Code(s): K35.20 - Acute appendicitis with generalized peritonitis, without abscess
[2019-12-30] MEDS: cefTRIAXone SODIUM 2,000 MG in DEXTROSE 5% 50 ML IV SCH (10:18)
--- NOTE | 2020-01-06 22:42 | Discharge Summary (DS) ---
ADMITTING DIAGNOSES: Acute appendicitis with perforation and gangrenous appendix. POSTOPERATIVE DIAGNOSIS: Acute appendicitis with perforation and gangrenous appendix. OPERATION: Laparoscopy covered to open appendectomy. SURGEON: Stalin Reyes MD. DETAILS OF DISCHARGE SUMMARY: This is an 79-year-old female who presented to the ED with couple days' history of acute abdominal pain. The patient had a CT scan diagnosis of malrotation, acute appendicitis, and we took the patient to the OR. We tried to do laparoscopy, had to convert to open appendectomy due to the patient had acute appendicitis with perforation and gangrenous appendix. the ELIZABETH was placed on pelvic area. The patient tolerated the procedure well. The procedure done on 12/22/2019 and after the procedure, the patient stayed in ICU 1 day and after that patient transferred to regular floor. The patient continued doing fine. PHYSICAL EXAMINATION: VITAL SIGNS: Temperature is 36.8, respiratory rate is 16, the heart rate is 63, blood pressure 140/82. O2 saturation 95% on room air. GENERAL: The patient is alert, awake, oriented x3. The patient is afebrile. HEENT: Within normal limitation. NEUROLOGIC: Intact. NECK: No JVD. CHEST: Bilateral lung sounds clear. HEART: Normal S1, S2. No murmur. ABDOMEN: Soft, no significant tenderness, nondistended. There are some redness incision. There was some redness on the staple, removed the staple, no pus come out on his blood. EXTREMITIES: No edema. The patient doing reasonably fine and patient discharged home with p.o. antibiotic. I will follow up the patient in 1 week and also gave the patient postop care instruction. Last CBC shows white count is 10,000 with normal limitation. MTDD
== END 2019-12-30 13:34 | DRG 853 ==
LOC: ED 18:59 → OR 22:53 → 1E 12-23 01:04 → 2S 12-23 09:47 → 3E 12-29 14:54

== ENCOUNTER 2020-01-10 10:38 | Inpatient (IN) ==
[2020-01-10] MEDS ORDERED: SODIUM CHLORIDE 0.9% 1000ML 500 ML IV ONE (11:36)
[2020-01-10] MEDS ORDERED: ONDANSETRON INJ 2 MG/ML 2 ML VIAL IV STA (11:36)
[2020-01-10] MEDS ORDERED: ACETAMINOPHEN 1,000 MG/100 ML VIAL IV STA (11:36)
--- NOTE | 2020-01-10 11:40 | XRay Report ---
XR chest 1V portable CLINICAL HISTORY: Sepsis. COMPARISON STUDY: Chest radiograph December 25, 2019. FINDINGS: A dual-lead left subclavian pacemaker is in place. There is mild cardiomegaly without evide nce for pulmonary edema. Linear right basilar opacity are present atelectasis. There is no consolidat ion to suggest pneumonia. IMPRESSION: No acute cardiopulmonary findings. ACT 112: Negative or not required by law. Electronically signed by: William Fernando M.D. 01/10/2020 11:39 AM
[2020-01-10 11:46] LABS: Hematocrit (blood only) 40.9 % (37-47); Hemoglobin 13.6 g/dL (12.0-16.0); Mean Corpuscular Hemoglobin 29.3 pg (25-34); Mean Corpuscular Hgb Conc 33.3 g/dL (32-36); Mean Corpuscular Volume 88.1 fL (80-100); Mean Platelet Volume 10.8 fL (7.4-10.4); Platelet Count 207 K/uL (130-400); RDW Coefficient of Variation 13.8 % (11.5-14.5); Red Blood Count 4.64 M/uL (4.2-5.4); White Blood Count 23.43 K/uL (4.8-10.8)
[2020-01-10] MEDS ORDERED: DAPTOMYCIN IV ONE (11:57)
[2020-01-10] MEDS ORDERED: PIPERACILLIN/TAZOBACTAM 4.5 GM/120 ML BAG IV ONE (11:57)
[2020-01-10] MEDS ORDERED: PIPERACILL/TAZOBAC CONSULT ACTIVE PRN (11:57)
[2020-01-10] MEDS ORDERED: DAPTOMYCIN CONSULT ACTIVE PRN ×2 (11:57→12:55)
[2020-01-10 12:04] LABS: INR 1.1 (0.9-1.1); Partial Thromboplastin Time 29.1 Seconds (21.0-31.0); Prothrombin Time 11.4 Seconds (9.0-12.0)
[2020-01-10 12:05] LABS: Alanine Aminotransferase 17 U/L (12-78); Aspartate Aminotransferase 15 U/L (15-37); BUN Creatinine Ratio 17.1 (10-20); Blood Urea Nitrogen 11 mg/dl (7-18); Carbon Dioxide 27 mmol/L (21-32); Chloride 105 mmol/L (98-107); Est GFR (African American) 97.2; Est GFR (Non-African American) 83.9; Glucose 115 mg/dl (70-99); Potassium 3.6 mmol/L (3.5-5.1); Sodium 139 mmol/L (136-145)
[2020-01-10 12:10] LABS: Albumin Globulin Ratio 0.9 (0.9-2); Alkaline Phosphatase 63 U/L (45-117); Bilirubin,Total 0.9 mg/dl (0.2-1); Creatine Kinase 28 U/L (26-192); Creatine Kinase MB < 1.0 ng/ml (0.5-3.6); Globulin 3.3 gm/dl (2.5-4.0); Total Protein 6.3 gm/dl (6.4-8.2); Troponin I < 0.015 ng/ml (0-0.045)
--- NOTE | 2020-01-10 12:13 | Electrocardiogram Report ---
Test Reason : Blood Pressure : / mmHG Vent. Rate : 064 BPM Atrial Rate : 064 BPM P-R Int : 200 ms QRS Dur : 086 ms QT Int : 426 ms P-R-T Axes : 000 032 052 degrees QTc Int : 439 ms Atrial-paced rhythm Abnormal ECG When compared with ECG of 23-DEC-2019 10:33, No significant change was found Confirmed by Kael Alfredo ([id number]) on 01/10/2020 12:12:25 PM Referred By: [facility] Confirmed By:Kael Alfredo
[2020-01-10 12:15] LABS: Basophils # (auto) 0.04 K/uL (0-0.2); Basophils % (auto) 0.2 %; Eosinophils # (auto) 0.03 K/uL (0-0.5); Eosinophils % (auto) 0.1 %; Immature Granulocytes # (auto) 0.05 K/uL (0.00-0.02); Immature Granulocytes % (auto) 0.2 %; Lymphocytes # (auto) 0.86 K/uL (1.2-3.4); Lymphocytes % (auto) 3.7 %; Monocytes # (auto) 1.94 K/uL (0.11-0.59); Monocytes % (auto) 8.3 %; Neutrophils # (auto) 20.51 K/uL (1.4-6.5); Neutrophils % (auto) 87.5 %
[2020-01-10] MEDS ORDERED: SODIUM CHLORIDE 0.9% 1000ML 1,000 ML IV ONE (12:32)
--- NOTE | 2020-01-10 12:40 | Emergency Department Note ---
History of Present Illness General Chief complaint: Fever Stated complaint: S/P APPY, FEVER, CHILLS Time Seen by Provider: 01/10/20 10:54 Source: patient, family, EMS, RN notes reviewed and old records reviewed Mode of arrival: EMS Limitations: no limitations History of Present Illness Provider complaint: fever, weakness Onset (ago): day(s) 1 Associated symptoms: + fever/chills, + nausea/vomiting and + weakness; no chest pain, no diaphoresis, no headaches and no shortness of breath Treatments prior to arrival: other (Tylenol) This is an 79-year-old female who presents the emergency department complaining of fever. The patient had a recent complication of a perforated appendicitis. She has been recovering at [facility]. Patient reports she had been doing well until last evening when she began feeling weak. She was found to have a fever this morning and was therefore sent to the emergency department. She denies any other symptoms including shortness of breath cough. She did vomit once today and is complaining of nausea. She denies any abdominal pain. Home Medications Home Medications Medication Instructions Recorded Confirmed Type Eliquis 5 mg PO BID 12/22/19 01/10/20 History amlodipine [Norvasc] 2.5 mg PO DAILY 12/22/19 01/10/20 History cetirizine 10 mg PO DAILY 12/22/19 01/10/20 History famotidine 20 mg PO BID 12/22/19 01/10/20 History letrozole [Femara] 2.5 mg PO DAILY 12/22/19 01/10/20 History levothyroxine [Synthroid] 88 mcg PO DAILY 12/22/19 01/10/20 History potassium chloride 10 meq PO DAILY 12/22/19 01/10/20 History sotalol 80 mg PO BID 12/22/19 01/10/20 History triamterene-hydrochlorothiazid 1 tab PO MOWEFR 12/22/19 01/10/20 History [Maxzide-25mg] zolpidem [Ambien] 5 mg PO HS 12/22/19 01/10/20 History oxycodone-acetaminophen [Percocet] 1 tab PO Q4H PRN #18 tab 12/27/19 01/10/20 Rx Allergies Allergy/AdvReac Type Severity Reaction Status Date / Time adhesive Allergy Unknown Skin Verified 01/10/20 12:40 irritation;Skin very sensitive; allantoin Allergy Unknown Skin very Verified 01/10/20 12:40 sensitive; aloe Allergy Unknown Skin very Verified 01/10/20 12:40 sensitive; edetic acid Allergy Unknown Skin very Verified 01/10/20 12:40 sensitive; glycerin Allergy Unknown Skin very Verified 01/10/20 12:40 sensitive; lanolin Allergy Unknown Skin very Verified 01/10/20 12:40 sensitive; trolamine salicylate Allergy Unknown Skin very Verified 01/10/20 12:40 sensitive; vitamin A Allergy Unknown Skin very Verified 01/10/20 12:40 sensitive; Stearic Acid Allergy Unknown Skin very Uncoded 01/10/20 12:40 sensitive; Past Med/Surg History Medical History Acute appendicitis with generalized peritonitis Atrial fibrillation Breast cancer Fracture of left ankle H/O head and neck radiation History of cardioversion Hypertension Hypothyroid Lymphoma Thyroid tumor, benign Surgical History H/O partial thyroidectomy History of section History of partial mastectomy of left breast S/P appendectomy w/ perforation/gangrene. open - 12/22/2019 - Stalin Reyes MD S/P cataract extraction bilateral Family History Mother , age 86 Alzheimer disease Father , 87 Stroke Social History Smoking Status: Never smoker Second Hand Exposure: No; Hx Alcohol Use: No Hx Substance Use: No Preferred Language: Guinean Communication Ability: Effective Pheresis Specialist Required: No Beliefs That Will Affect Care: None marital status: Current Living Situation: Spouse and Personal Care Facility Current Living Situation Comment: at [facility] since 12-30-19 from recent hospital admission current occupational status: retired current occupation: former speech therapist How many Children do You have: 3 Feels Safe at Home: Yes Safety Concerns: Feels Safe At This Time Review of Systems A total of 10 systems reviewed and were otherwise negative Physical Exam Vital Signs Vital Signs - 24 hr 01/10/20 11:00 01/10/20 11:09 01/10/20 11:15 Temperature 38.7 C H Temperature Source Oral Pulse Rate 77 63 Pulse Rate from SpO2 Sensor 65 Pulse Rhythm Regular Pulse Strength Normal Respiratory Rate 18 20 Respiratory Effort / Characteristics Non-Labored Spontaneous Non-Labored Spontaneous Respiratory Depth Normal Respiratory Pattern Regular Blood Pressure 125/52 L 129/46 L Blood Pressure Mean 62 73 Blood Pressure Position Sitting Pulse Oximetry 95 95 Oxygen Delivery Method Room Air Room Air Room Air Sepsis Recent Fever Within 48 Hours Yes Sepsis New/Unexplained Change in Mental Status N/A Sepsis Action Taken by Nursing No Action Required 01/10/20 11:17 01/10/20 11:31 01/10/20 11:45 Temperature Temperature Source Pulse Rate 60 Pulse Rate from SpO2 Sensor 60 Pulse Rhythm Pulse Strength Respiratory Rate 18 Respiratory Effort / Characteristics Non-Labored Spontaneous Respiratory Depth Respiratory Pattern Blood Pressure 105/56 L Blood Pressure Mean 71 Blood Pressure Position Pulse Oximetry 95 97 Oxygen Delivery Method Room Air Room Air Room Air Sepsis Recent Fever Within 48 Hours Sepsis New/Unexplained Change in Mental Status Sepsis Action Taken by Nursing 01/10/20 12:01 01/10/20 12:15 01/10/20 12:30 Temperature Temperature Source Pulse Rate 63 60 Pulse Rate from SpO2 Sensor 62 60 Pulse Rhythm Pulse Strength Respiratory Rate 12 18 Respiratory Effort / Characteristics Non-Labored Spontaneous Non-Labored Spontaneous Respiratory Depth Respiratory Pattern Blood Pressure 112/50 L 106/46 L Blood Pressure Mean 60 62 Blood Pressure Position Pulse Oximetry 97 94 Oxygen Delivery Method Room Air Room Air Room Air Sepsis Recent Fever Within 48 Hours Sepsis New/Unexplained Change in Mental Status Sepsis Action Taken by Nursing 01/10/20 12:45 01/10/20 13:00 01/10/20 13:11 Temperature Temperature Source Pulse Rate 65 69 Pulse Rate from SpO2 Sensor 64 69 Pulse Rhythm Pulse Strength Respiratory Rate 18 16 Respiratory Effort / Characteristics Non-Labored Spontaneous Respiratory Depth Respiratory Pattern Blood Pressure 129/55 L Blood Pressure Mean 74 Blood Pressure Position Pulse Oximetry 96 97 Oxygen Delivery Method Room Air Room Air Room Air Sepsis Recent Fever Within 48 Hours Sepsis New/Unexplained Change in Mental Status Sepsis Action Taken by Nursing 01/10/20 13:15 01/10/20 13:30 01/10/20 14:00 Temperature Temperature Source Pulse Rate 65 60 61 Pulse Rate from SpO2 Sensor 65 60 61 Pulse Rhythm Pulse Strength Respiratory Rate 14 20 12 Respiratory Effort / Characteristics Non-Labored Spontaneous Non-Labored Spontaneous Respiratory Depth Respiratory Pattern Blood Pressure 106/43 L 121/48 L Blood Pressure Mean 61 77 Blood Pressure Position Pulse Oximetry 96 95 97 Oxygen Delivery Method Room Air Room Air Room Air Sepsis Recent Fever Within 48 Hours Sepsis New/Unexplained Change in Mental Status Sepsis Action Taken by Nursing 01/10/20 14:15 01/10/20 14:30 01/10/20 14:31 Temperature 37.6 C H Temperature Source Oral Pulse Rate 71 66 Pulse Rate from SpO2 Sensor 71 68 Pulse Rhythm Pulse Strength Respiratory Rate 18 12 Respiratory Effort / Characteristics Non-Labored Spontaneous Respiratory Depth Respiratory Pattern Blood Pressure 120/44 L Blood Pressure Mean 61 Blood Pressure Position Pulse Oximetry 95 97 Oxygen Delivery Method Room Air Room Air Sepsis Recent Fever Within 48 Hours Sepsis New/Unexplained Change in Mental Status Sepsis Action Taken by Nursing 01/10/20 14:45 01/10/20 15:00 01/10/20 15:15 Temperature Temperature Source Pulse Rate 62 66 60 Pulse Rate from SpO2 Sensor 62 65 60 Pulse Rhythm Pulse Strength Respiratory Rate 23 23 22 Respiratory Effort / Characteristics Non-Labored Spontaneous Respiratory Depth Respiratory Pattern Blood Pressure 127/48 L Blood Pressure Mean 72 Blood Pressure Position Pulse Oximetry 94 94 94 Oxygen Delivery Method Room Air Room Air Sepsis Recent Fever Within 48 Hours Sepsis New/Unexplained Change in Mental Status Sepsis Action Taken by Nursing VITAL SIGNS - Vital signs and nursing notes were reviewed. GENERAL - 79-year-old female appearing stated age who is in no acute distress. Communicates well with provider and answers questions appropriately. SKIN - Without rashes. HEAD - NC/AT. EYES - PERRL with EOMI bilaterally. Sclera anicteric. Palpebral conjunctiva pi nk and moist with no injection noted. EARS - No deformities of external structures noted on gross examination bilaterally. No pain elicited with palpation of the tragus bilaterally. External auditory canals without discharge or otorrhea. Tympanic membranes pearly holloway without retraction or bulging. No fluid or purulent material visualized behind the TM. Handle of malleus, umbo, cone of light, pars tensa/flaccid all easily visualized. NOSE - Midline and without cyanosis. No epistaxis or purulent drainage noted. Septum midline without deviation or septal hematoma noted. MOUTH/OROPHARYNX - Without perioral cyanosis. Buccal mucosa pink and moist and without leukoplakia. Tongue midline with equal elevation of palate bilaterally. No tonsillar hypertrophy, erythema, or exudates noted. dentition noted. NECK - Neck with FROM. Supple to palpation. lymphadenopathy noted. No nuchal rigidity. LUNGS - Chest wall symmetric without accessory muscle use, intercostals retractions, or central cyanosis. Normal vesicular breath sounds CTA B/L. No wheezes, rales, or rhonchi appreciated. CARDIAC - RRR with S1/S2. No murmur, rubs, or gallops appreciated. ABDOMEN - Abdominal contour without pulsations or visible masses. BS normoactive all four quadrants. No tenderness, palpable masses, hepatos plenomegaly, or ascites noted. EXTREMITIES - No clubbing or peripheral cyanosis. No pretibial edema present. +3/5 radial, posterior tibial, and dorsalis pedis pulses palpated throughout. +5/5 strength noted in UE/LE bilaterally. NEUROLOGIC - Cranial nerves II through XII grossly intact. Sensory intact to light touch throughout. Patellar reflexes +2/4. PSYCH - A&Ox3 and cooperates fully with examiner. Pt is very pleasant and interacts well with examiner. Course Administered Medications Discontinued Medications Sodium Chloride (Nss 1000ml) 500 mls @ 999 mls/hr IV .Q31M ONE Stop: 01/10/20 12:06 Last Infusion: 01/10/20 12:13 Dose: 0 mls/hr Documented by: [id number] Admin: 01/10/20 11:42 Dose: 999 mls/hr Documented by: [id number] Acetaminophen (Ofirmev) 1,000 mg in 100 mls @ 400 mls/hr IV NOW STA Stop: 01/10/20 11:50 Last Infusion: 01/10/20 11:58 Dose: 0 mls/hr Documented by: [id number] Admin: 01/10/20 11:43 Dose: 400 mls/hr Documented by: [id number] Piperacillin Sod/Tazobactam Sod (Zosyn) 4.5 gm in 120 mls @ 240 mls/hr IV NOW ONE Stop: 01/10/20 12:26 Last Infusion: 01/10/20 13:46 Dose: 0 mls/hr Documented by: [id number] Admin: 01/10/20 13:16 Dose: 240 mls/hr Documented by: [id number] Sodium Chloride (Nss 1000ml) 1,000 mls @ 999 mls/hr IV .Q1H1M ONE Stop: 01/10/20 13:32 Last Infusion: 01/10/20 14:13 Dose: 0 mls/hr Documented by: [id number] Admin: 01/10/20 13:12 Dose: 999 mls/hr Documented by: [id number] Daptomycin 350 mg/ Syringe 7 mls @ 3.5 mls/min IV NOW ONE; Protocol Stop: 01/10/20 13:01 Last Admin: 01/10/20 13:11 Dose: 3.5 mls/min Documented by: [id number] Ioversol (Ioversol 100ml) 93 ml IV ONCE ONE Stop: 01/10/20 13:37 Last Admin: 01/10/20 13:37 Dose: 93 ml Documented by: [id number] Ondansetron HCl (Ondansetron Inj 2 Mg/Ml 2 Ml Vial) 4 mg IV NOW STA Stop: 01/10/20 11:37 Last Admin: 01/10/20 11:43 Dose: 4 mg Documented by: [id number] Medical Decision Making Differential Diagnosis Appendicitis, testicular torsion, infections, diverticulitis, UTI, obstruction, mesenteric ischemia, aortic pathology, inflammatory bowel disease, renal colic, PUD, pancreatitis, biliary pathology, hernia, volvulus, constipation, as well as other pathologies. Medical Records Attestation: I reviewed the patient's medical records. Home Medications Current Medication List: was personally reviewed by me Laboratory Data Attestation: I reviewed the patient's lab results. Result diagrams: 01/10/20 11:24 01/10/20 11:24 Lab Results 01/10/20 01/10/20 01/10/20 Range/Units 11:24 11:24 11:24 WBC 23.43 H (4.8-10.8) K/uL RBC 4.64 (4.2-5.4) M/uL Hgb 13.6 (12.0-16.0) g/dL Hct 40.9 (37-47) % MCV 88.1 (80-100) fL MCH 29.3 (25-34) pg MCHC 33.3 (32-36) g/dL RDW Std Deviation 45.0 (36.4-46.3) fL RDW Coeff of Ken 13.8 (11.5-14.5) % Plt Count 207 (130-400) K/uL MPV 10.8 H (7.4-10.4) fL Immature Gran % (Auto) 0.2 % Neut % (Auto) 87.5 % Lymph % (Auto) 3.7 % [place] % (Auto) 8.3 % Eos % (Auto) 0.1 % Baso % (Auto) 0.2 % Neut # (Auto) 20.51 H (1.4-6.5) K/uL Lymph # (Auto) 0.86 L (1.2-3.4) K/uL [place] # (Auto) 1.94 H (0.11-0.59) K/uL Eos # (Auto) 0.03 (0-0.5) K/uL Baso # (Auto) 0.04 (0-0.2) K/uL Immature Gran # (Auto) 0.05 H (0.00-0.02) K/uL PT 11.4 (9.0-12.0) Seconds INR 1.1 (0.9-1.1) APTT 29.1 (21.0-31.0) Seconds PTT Ratio 1.0 Sodium 139 (136-145) mmol/L Potassium 3.6 (3.5-5.1) mmol/L Chloride 105 (98-107) mmol/L Carbon Dioxide 27 (21-32) mmol/L Anion Gap 7.0 (3-11) BUN 11 (7-18) mg/dl Creatinine 0.65 (0.6-1.2) mg/dl Est Cr Clr Drug Dosing Not Reportable Est GFR ( Amer) 97.2 Est GFR (Non-Af Amer) 83.9 BUN/Creatinine Ratio 17.1 (10-20) Glucose 115 H (70-99) mg/dl Lactate Calcium 9.0 (8.5-10.1) mg/dl Magnesium 2.0 (1.8-2.4) mg/dl Total Bilirubin 0.9 (0.2-1) mg/dl AST 15 (15-37) U/L ALT 17 (12-78) U/L Alkaline Phosphatase 63 (45-117) U/L Total Creatine Kinase 28 (26-192) U/L CK-MB (CK-2) < 1.0 (0.5-3.6) ng/ml CK/CKMB % Calc TNP Troponin I < 0.015 (0-0.045) ng/ml Total Protein 6.3 L (6.4-8.2) gm/dl Albumin 3.0 L (3.4-5.0) gm/dl Globulin 3.3 (2.5-4.0) gm/dl Albumin/Globulin Ratio 0.9 (0.9-2) Procalcitonin (0-0.5) ng/ml Urine Color Urine Appearance (Clear) Urine pH (4.5-7.5) Ur Specific [place] (1.000-1.030) Urine Protein (Negative) Urine Glucose (UA) (Negative) Urine Ketones (Negative) Urine Blood (Negative) Urine Nitrite (Negative) Urine Bilirubin (Negative) Urine Urobilinogen (Negative) Ur Leukocyte Esterase (Negative) Urine WBC (Auto) (0-5) /hpf Urine RBC (Auto) (0-4) /hpf U Hyaline Cast (Auto) (0-5) /lpf U Epithel Cells (Auto) (0-5) /lpf Urine Bacteria (Auto) (Negative) Urine Crystals Urine Yeast COVID-19 Eval Order COVID-19 PCR (Negative) 01/10/20 01/10/20 01/10/20 Range/Units 11:24 11:24 11:58 WBC (4.8-10.8) K/uL RBC (4.2-5.4) M/uL Hgb (12.0-16.0) g/dL Hct (37-47) % MCV (80-100) fL MCH (25-34) pg MCHC (32-36) g/dL RDW Std Deviation (36.4-46.3) fL RDW Coeff of Ken (11.5-14.5) % Plt Count (130-400) K/uL MPV (7.4-10.4) fL Immature Gran % (Auto) % Neut % (Auto) % Lymph % (Auto) % [place] % (Auto) % Eos % (Auto) % Baso % (Auto) % Neut # (Auto) (1.4-6.5) K/uL Lymph # (Auto) (1.2-3.4) K/uL [place] # (Auto) (0.11-0.59) K/uL Eos # (Auto) (0-0.5) K/uL Baso # (Auto) (0-0.2) K/uL Immature Gran # (Auto) (0.00-0.02) K/uL PT (9.0-12.0) Seconds INR (0.9-1.1) APTT (21.0-31.0) Seconds PTT Ratio Sodium (136-145) mmol/L Potassium (3.5-5.1) mmol/L Chloride (98-107) mmol/L Carbon Dioxide (21-32) mmol/L Anion Gap (3-11) BUN (7-18) mg/dl Creatinine (0.6-1.2) mg/dl Est Cr Clr Drug Dosing Est GFR ( Amer) Est GFR (Non-Af Amer) BUN/Creatinine Ratio (10-20) Glucose (70-99) mg/dl Lactate Cancelled Calcium (8.5-10.1) mg/dl Magnesium (1.8-2.4) mg/dl Total Bilirubin (0.2-1) mg/dl AST (15-37) U/L ALT (12-78) U/L Alkaline Phosphatase (45-117) U/L Total Creatine Kinase (26-192) U/L CK-MB (CK-2) (0.5-3.6) ng/ml CK/CKMB % Calc Troponin I (0-0.045) ng/ml Total Protein (6.4-8.2) gm/dl Albumin (3.4-5.0) gm/dl Globulin (2.5-4.0) gm/dl Albumin/Globulin Ratio (0.9-2) Procalcitonin 0.18 (0-0.5) ng/ml Urine Color Urine Appearance (Clear) Urine pH (4.5-7.5) Ur Specific [place] (1.000-1.030) Urine Protein (Negative) Urine Glucose (UA) (Negative) Urine Ketones (Negative) Urine Blood (Negative) Urine Nitrite (Negative) Urine Bilirubin (Negative) Urine Urobilinogen (Negative) Ur Leukocyte Esterase (Negative) Urine WBC (Auto) (0-5) /hpf Urine RBC (Auto) (0-4) /hpf U Hyaline Cast (Auto) (0-5) /lpf U Epithel Cells (Auto) (0-5) /lpf Urine Bacteria (Auto) (Negative) Urine Crystals Urine Yeast COVID-19 Eval Order Covid19 Done at [facility] COVID-19 PCR (Negative) 01/10/20 01/10/20 Range/Units 11:58 13:15 WBC (4.8-10.8) K/uL RBC (4.2-5.4) M/uL Hgb (12.0-16.0) g/dL Hct (37-47) % MCV (80-100) fL MCH (25-34) pg MCHC (32-36) g/dL RDW Std Deviation (36.4-46.3) fL RDW Coeff of Ken (11.5-14.5) % Plt Count (130-400) K/uL MPV (7.4-10.4) fL Immature Gran % (Auto) % Neut % (Auto) % Lymph % (Auto) % [place] % (Auto) % Eos % (Auto) % Baso % (Auto) % Neut # (Auto) (1.4-6.5) K/uL Lymph # (Auto) (1.2-3.4) K/uL [place] # (Auto) (0.11-0.59) K/uL Eos # (Auto) (0-0.5) K/uL Baso # (Auto) (0-0.2) K/uL Immature Gran # (Auto) (0.00-0.02) K/uL PT (9.0-12.0) Seconds INR (0.9-1.1) APTT (21.0-31.0) Seconds PTT Ratio Sodium (136-145) mmol/L Potassium (3.5-5.1) mmol/L Chloride (98-107) mmol/L Carbon Dioxide (21-32) mmol/L Anion Gap (3-11) BUN (7-18) mg/dl Creatinine (0.6-1.2) mg/dl Est Cr Clr Drug Dosing Est GFR ( Amer) Est GFR (Non-Af Amer) BUN/Creatinine Ratio (10-20) Glucose (70-99) mg/dl Lactate Calcium (8.5-10.1) mg/dl Magnesium (1.8-2.4) mg/dl Total Bilirubin (0.2-1) mg/dl AST (15-37) U/L ALT (12-78) U/L Alkaline Phosphatase (45-117) U/L Total Creatine Kinase (26-192) U/L CK-MB (CK-2) (0.5-3.6) ng/ml CK/CKMB % Calc Troponin I (0-0.045) ng/ml Total Protein (6.4-8.2) gm/dl Albumin (3.4-5.0) gm/dl Globulin (2.5-4.0) gm/dl Albumin/Globulin Ratio (0.9-2) Procalcitonin (0-0.5) ng/ml Urine Color Dark Yellow Urine Appearance Turbid A (Clear) Urine pH 6.5 (4.5-7.5) Ur Specific [place] 1.020 (1.000-1.030) Urine Protein Trace H (Negative) Urine Glucose (UA) Negative (Negative) Urine Ketones Negative (Negative) Urine Blood 3+ H (Negative) Urine Nitrite Positive A (Negative) Urine Bilirubin Negative (Negative) Urine Urobilinogen Negative (Negative) Ur Leukocyte Esterase 2+ H (Negative) Urine WBC (Auto) >30 H (0-5) /hpf Urine RBC (Auto) 0-4 (0-4) /hpf U Hyaline Cast (Auto) 1-5 (0-5) /lpf U Epithel Cells (Auto) 10-20 H (0-5) /lpf Urine Bacteria (Auto) 4+ H (Negative) Urine Crystals Not Reportable Urine Yeast Not Reportable COVID-19 Eval Order COVID-19 PCR NEGATIVE (Negative) ECG Data Attestation: I personally reviewed and interpreted this ECG as follows: Indication: + other (fever) Rate (beats per minute): 64 Rhythm: + other (atrial paced rhythm) ECG Reagan: + Normal ECG ST segments: no ST depression and no ST elevation Comparison ECG Date: from (12/23/2019) Change: no significant change MDM Narrative Patient was seen and evaluated as above in room C3. Review was performed of nursing notes and vital signs. I did review pertinent previous visits and patient history. After obtaining a thorough history and physical examination the above work up was performed. This is an 79-year-old female who presents emergency department complaining of fever. The patient does have a gross elevation in her white blood cell count. Patient has had a complicated medical course as of late. She had a perforated appendicitis. Patient denies any abdominal pain. She is nontender on my physical examination. She has a gross elevation in her white blood cell count. She was pancultured and started on antibiotics Zosyn and daptomycin. Her urinalysis is suggestive of a urinary tract infection. CAT scan the abdomen pelvis does not show any acute process. There is a malrotation present however this was present last time she was here. I did touch base with the surgery service and did discuss the case with the hospitalist service who did agree to meet the patient. An order was placed for continuous cardiac monitoring. The monitor shows a rate of 60 with paced rhythm rhythm. The patient was evaluated during the global COVID-19 pandemic, and that diagnosis was suspected/considered upon their initial presentation. Their evaluation, treatment and testing was consistent with current guidelines for patients who present with complaints or symptoms that may be related to COVID- 19. Impression & Plan Fever, Leukocytosis, Vomiting Discharge Plan Visit Data Chief Complaint: Fever Stated Complaint: S/P APPY, FEVER, CHILLS ED Provider: Santo Mcclelland Discharge Problem: Fever, Leukocytosis, Vomiting Patient Disposition: Admitted As Inpatient Discharge Instructions Interventions: ED Discharge Assessment Last Done: 01/10/20 16:19 Discharge Problem: Fever Qualifiers: Fever type: unspecified Qualified Code(s): R50.9 - Fever, unspecified Leukocytosis Qualifiers: Leukocytosis type: unspecified Qualified Code(s): D72.829 - Elevated white blood cell count, unspecified Vomiting Qualifiers: Vomiting type: unspecified Vomiting Intractability: unspecified Nausea presence: unspecified Qualified Code(s): R11.10 - Vomiting, unspecified
[2020-01-10] MEDS ORDERED: DAPTOmycin 350 MG in SYRINGE 0 ML IV ONE (13:00)
[2020-01-10 13:36] LABS: Appearance Urine Turbid (Clear); Bacteria Urine Automated 4+ (Negative); Bilirubin Urine Negative (Negative); Blood Urine 3+ (Negative); Color Urine Dark Yellow; Glucose Urine UA Negative (Negative); Ketones Urine Negative (Negative); Leukocyte Esterase Urine 2+ (Negative); Nitrite Urine Positive (Negative); Protein Urine Trace (Negative); Urobilinogen Urine Negative (Negative); WBC Urine Automated >30 /hpf (0-5); pH Urine 6.5 (4.5-7.5)
[2020-01-10] MEDS ORDERED: IOVERSOL 100ml IV ONE (13:36)
--- NOTE | 2020-01-10 13:57 | CT Scan Report ---
CT abd pelvis IV con only CLINICAL HISTORY: Fever. Recent abdominal surgery. REMOTE HISTORY OF LARGE CELL LYMPHOMA COMPARISON STUDY: 12/22/2019 TECHNIQUE: The patient was scanned in a dynamic helical fashion during intravenous administration of 93 cc of Optiray 320. A dose lowering technique was utilized adhering to the principles of ALARA. CT DOSE: 681.95 mGy.cm FINDINGS: Lower chest: There are mild basilar atelectatic changes. There is a hiatal hernia. Liver: There is hepatic steatosis. No focal hepatic masses are visualized. Portal and hepatic veins a ppear patent. Gallbladder: Mildly distended. No calculi identified Spleen: Normal in size and attenuation. Pancreas: Unremarkable. Adrenal glands: Unremarkable. Kidneys: There is a 12 mm upper pole left renal cyst. There is no hydronephrosis. No solid renal mass es are visualized. Bowel: There are postsurgical changes of an interval appendectomy. There are no transition zone to in dicate bowel obstruction. There is no evidence of acute diverticulitis. There is mild bowel wall thic kening involving the left colon. There is a small bowel malrotation. Peritoneum: There is no intraperitoneal free air or abdominal ascites. There is mild infiltration/str anding of the peritoneal fat at the level of prior surgery. This is consistent with postsurgical alvarado ge. There is no evidence of abscess. Vasculature: The abdominal aorta is normal in course and caliber. Adenopathy: None. Pelvic viscera: The bladder is not well distended. There is borderline bladder wall thickening Skeletal structures: No destructive osseous lesions are seen. There are postsurgical changes involvin g the anterior abdominal wall IMPRESSION: 1. Interval appendectomy 2. No evidence of bowel obstruction. No evidence of free air 3. Mild bowel wall thickening involving the left colon consistent with a nonspecific colitis 4. Malrotation of the bowel 5. No evidence of postsurgical abscess ACT 112: Negative or not required by law. Electronically signed by: Christ Eldridge M.D. 01/10/2020 1:55 PM
[2020-01-10 14:03] LABS: RBC Urine Automated 0-4 /hpf (0-4)
[2020-01-10] MEDS ORDERED: OXYCODONE/ACETAMINOPHEN 5mg/325mg TAB PO PRN (16:37)
[2020-01-10] MEDS ORDERED: ONDANSETRON INJ 2 MG/ML 2 ML VIAL IV PRN (16:37)
[2020-01-10] MEDS ORDERED: ACETAMINOPHEN 325 MG TAB PO PRN (16:37)
[2020-01-10] MEDS ORDERED: NSS + 20MEQ KCL 20 MEQ/1,000 ML BAG IV SCH (17:00)
[2020-01-10] MEDS: APIXABAN 5 MG TABLET PO SCH (20:20)
[2020-01-10] MEDS: CEFEPIME 2,000 MG in SYRINGE 0 ML IV SCH (20:20)
[2020-01-10] MEDS: SOTALOL HCL 80 MG TAB PO SCH (20:20)
[2020-01-10] MEDS: FAMOTIDINE 20 MG TAB PO SCH (20:20)
--- NOTE | 2020-01-10 21:40 | History & Physical Report ---
Date of Service January 10, 2020 Assessment & Plan (1) UTI (urinary tract infection): UA > 30 WBC, leukocytosis of 23k, no other etiology for fever will treat with Cefepime 2gm IV q12 follow up on urine and blood cultures (2) Sepsis: due to UTI patient is dehydrated, with fever and leukocytosis of 23K with left shift UA with > 30 WBC no abdominal pain, no incisional drainage or signs of wound infection no fluid collection/abscess on CT abd/pelvis CXR clear and no clinical signs of pneumonia Fluids at 80cc/hr, Cefepime 2gm IV q12 follow up on urine and blood cultures BP preserved, no signs of shock (3) Fever: due to UTI, no other source COVID 19 negative (4) Leukocytosis: with left shift due to UTI repeat CBC in morning (5) PAF (paroxysmal atrial fibrillation): HR in the 60's continue Sotalol and anticoagulation (6) S/P appendectomy: incision healing well, abdomen soft, NT consider routine surgery consult if she does not improve with Cefepime (7) Hypothyroid: (8) Hypertension: hold triamterene / HCTZ and Norvasc given her dehydration and low normal BP resume these once she is hypertensive (9) Diarrhea: ongoing since surgery suspect poor absorption will check C diff due to WBC of 23k Admission and Anticipated Discharge Date Admission Date: January 10, 2020 History of Present Illness Chief Complaint: I had a fever Primary Care Provider: [facility] 79 yo female with recent hospitalization for perforated appendicitis, required open appendectomy, was hospitalized for two weeks, required IV antibiotics. She was eventually discharged to [facility] for acute rehabilitation. She has been following a low fiber diet. She has been doing well. Abdominal pain has been minimal. She continues to have loose stools, they really have never become formed since her surgery. She had a follow up with Dr. Torres, he cut three sutures out and some purulent fluid drained from wound but that stopped quickly. She was supposed to see general surgery on Monday for staple removal. She says her incision has been clean, no erythema or pain. She did so well with rehab that she returned to her independent living apartment with her 4 days ago. She started to develop fevers and chills over the past two days. She had the diarrhea but no abdominal pain. She admitted to a sharp pain in her bladder two days ago but it went away quickly. She denies dysuria or urinary frequency. She denies dyspnea or cough. She was sent to the ED since she was having a fever and generally not feeling well. In the ED she has a fever, leukocytosis of 23k. Hb is 13. CMP is normal, procalcitonin normal, troponin negative. CXR clear. CT abdomen/pelvis with expected post op changes, some non-specific findings of colitis. UA appears infected with > 30WBC. She was given IV fluids, Daptomycin and Zosyn in the ED. Admission requested. Allergies Allergy/AdvReac Type Severity Reaction Status Date / Time adhesive Allergy Unknown Skin Verified 01/10/20 12:40 irritation;Skin very sensitive; allantoin Allergy Unknown Skin very Verified 01/10/20 12:40 sensitive; aloe Allergy Unknown Skin very Verified 01/10/20 12:40 sensitive; edetic acid Allergy Unknown Skin very Verified 01/10/20 12:40 sensitive; glycerin Allergy Unknown Skin very Verified 01/10/20 12:40 sensitive; lanolin Allergy Unknown Skin very Verified 01/10/20 12:40 sensitive; trolamine salicylate Allergy Unknown Skin very Verified 01/10/20 12:40 sensitive; vitamin A Allergy Unknown Skin very Verified 01/10/20 12:40 sensitive; Stearic Acid Allergy Unknown Skin very Uncoded 01/10/20 12:40 sensitive; Home Medications Home Medications Medication Instructions Recorded Confirmed Type Eliquis 5 mg PO BID 12/22/19 01/10/20 History amlodipine [Norvasc] 2.5 mg PO DAILY 12/22/19 01/10/20 History cetirizine 10 mg PO DAILY 12/22/19 01/10/20 History famotidine 20 mg PO BID 12/22/19 01/10/20 History letrozole [Femara] 2.5 mg PO DAILY 12/22/19 01/10/20 History levothyroxine [Synthroid] 88 mcg PO DAILY 12/22/19 01/10/20 History potassium chloride 10 meq PO DAILY 12/22/19 01/10/20 History sotalol 80 mg PO BID 12/22/19 01/10/20 History triamterene-hydrochlorothiazid 1 tab PO MOWEFR 08/30/20 09/18/20 History [Maxzide-25mg] zolpidem [Ambien] 5 mg PO HS 12/22/19 01/10/20 History oxycodone-acetaminophen [Percocet] 1 tab PO Q4H PRN #18 tab 12/27/19 01/10/20 Rx Past Med/Surg History Medical History Acute appendicitis with generalized peritonitis Atrial fibrillation Breast cancer Fracture of left ankle H/O head and neck radiation History of cardioversion Hypertension Hypothyroid Lymphoma Thyroid tumor, benign Surgical History H/O partial thyroidectomy History of section History of partial mastectomy of left breast S/P appendectomy w/ perforation/gangrene. open - 12/22/2019 - Stalin Reyes MD S/P cataract extraction bilateral Family History Mother , age 86 Alzheimer disease Father , 87 Stroke Social History Smoking Status: Never smoker Second Hand Exposure: No; Hx Alcohol Use: No Hx Substance Use: No Preferred Language: Icelandic Communication Ability: Effective Farm Equipment Assembler Required: No Beliefs That Will Affect Care: None marital status: Current Living Situation: Spouse and Personal Care Facility Current Living Situation Comment: at [facility] since 12-30-19 from recent hospital admission current occupational status: retired current occupation: former speech therapist How many Children do You have: 3 Feels Safe at Home: Yes Safety Concerns: Feels Safe At This Time Review of Systems Review of Systems: All systems reviewed & are unremarkable except as noted in HPI & below Physical Exam Constitutional: well developed, well nourished, + ill appearing and + diaphoretic; no acute distress Eyes: PERRL, conjunctivae normal, anicteric sclerae ENMT: external ear and nose normal, oropharynx normal Neck: trachea midline, no thyromegaly Respiratory: normal respiratory effort, lungs clear to auscultation Cardiovascular: RRR, no murmur, no edema Gastrointestinal (Abdomen): Inspection/Auscultation: normal bowel sounds and + abdominal surgical incision (clean, dry, intact with valencia, no drainage, no erythema, healing well); abdomen not distended Percussion/Palpation: abdomen soft; abdomen nontender, no guarding, abdomen not rigid and no hernia Musculoskeletal: no cyanosis or clubbing, extremities motor strength 5/5 Skin: no rashes, warm and dry Neurologic: patellar DTR's 2+ bilat, sensation intact and PERRL, EOMI, accommodation nl, no face palsy, no dysarthria Psychiatric: A+Ox3, euthymic affect Lymphatic: no cervical or axillary lymphadenopathy Results & Data Results & Data ([facility]) Vital Signs (Past 12 Hours) Vital Signs Temp Pulse Pulse Resp BP BP BP 01/10/20 20:17 71 102/63 01/10/20 19:18 36.7 C 70 18 100/62 01/10/20 16:41 63 01/10/20 16:37 36.8 C 73 18 112/82 01/10/20 16:00 71 20 106/55 L 01/10/20 15:45 63 18 01/10/20 15:30 67 22 124/46 L 01/10/20 15:15 60 22 01/10/20 15:00 66 23 127/48 L 01/10/20 14:45 62 23 01/10/20 14:31 37.6 C H 66 12 120/44 L 01/10/20 14:15 71 18 01/10/20 14:00 61 12 121/48 L 01/10/20 13:30 60 20 106/43 L 01/10/20 13:15 65 14 01/10/20 13:11 69 16 129/55 L 01/10/20 12:45 65 18 01/10/20 12:30 60 18 106/46 L 01/10/20 12:01 63 12 112/50 L 01/10/20 11:31 60 18 105/56 L 01/10/20 11:17 01/10/20 11:09 38.7 C H 63 20 129/46 L 01/10/20 11:00 77 18 125/52 L Pulse Ox 01/10/20 20:17 01/10/20 19:18 93 01/10/20 16:41 01/10/20 16:37 96 01/10/20 16:00 01/10/20 15:45 94 01/10/20 15:30 93 01/10/20 15:15 94 01/10/20 15:00 94 01/10/20 14:45 94 01/10/20 14:31 97 01/10/20 14:15 95 01/10/20 14:00 97 01/10/20 13:30 95 01/10/20 13:15 96 01/10/20 13:11 97 01/10/20 12:45 96 01/10/20 12:30 94 01/10/20 12:01 97 01/10/20 11:31 97 01/10/20 11:17 95 01/10/20 11:09 95 01/10/20 11:00 95 Laboratory Results Laboratory Results - last 24 hr 01/10/20 01/10/20 01/10/20 11:24 11:24 11:24 WBC 23.43 H RBC 4.64 Hgb 13.6 Hct 40.9 MCV 88.1 MCH 29.3 MCHC 33.3 RDW Std Deviation 45.0 RDW Coeff of Ken 13.8 Plt Count 207 MPV 10.8 H Immature Gran % (Auto) 0.2 Neut % (Auto) 87.5 Lymph % (Auto) 3.7 Steele % (Auto) 8.3 Eos % (Auto) 0.1 Baso % (Auto) 0.2 Neut # (Auto) 20.51 H Lymph # (Auto) 0.86 L Steele # (Auto) 1.94 H Eos # (Auto) 0.03 Baso # (Auto) 0.04 Immature Gran # (Auto) 0.05 H PT 11.4 INR 1.1 APTT 29.1 PTT Ratio 1.0 Sodium 139 Potassium 3.6 Chloride 105 Carbon Dioxide 27 Anion Gap 7.0 BUN 11 Creatinine 0.65 Est Cr Clr Drug Dosing Not Reportable Est GFR ( Amer) 97.2 Est GFR (Non-Af Amer) 83.9 BUN/Creatinine Ratio 17.1 Glucose 115 H Lactate Calcium 9.0 Magnesium 2.0 Total Bilirubin 0.9 AST 15 ALT 17 Alkaline Phosphatase 63 Total Creatine Kinase 28 CK-MB (CK-2) < 1.0 CK/CKMB % Calc TNP Troponin I < 0.015 Total Protein 6.3 L Albumin 3.0 L Globulin 3.3 Albumin/Globulin Ratio 0.9 Procalcitonin Urine Color Urine Appearance Urine pH Ur Specific [place] Urine Protein Urine Glucose (UA) Urine Ketones Urine Blood Urine Nitrite Urine Bilirubin Urine Urobilinogen Ur Leukocyte Esterase Urine WBC (Auto) Urine RBC (Auto) U Hyaline Cast (Auto) U Epithel Cells (Auto) Urine Bacteria (Auto) Urine Crystals Urine Yeast COVID-19 Eval Order COVID-19 PCR 01/10/20 01/10/20 01/10/20 11:24 11:24 11:58 WBC RBC Hgb Hct MCV MCH MCHC RDW Std Deviation RDW Coeff of Ken Plt Count MPV Immature Gran % (Auto) Neut % (Auto) Lymph % (Auto) Steele % (Auto) Eos % (Auto) Baso % (Auto) Neut # (Auto) Lymph # (Auto) Steele # (Auto) Eos # (Auto) Baso # (Auto) Immature Gran # (Auto) PT INR APTT PTT Ratio Sodium Potassium Chloride Carbon Dioxide Anion Gap BUN Creatinine Est Cr Clr Drug Dosing Est GFR ( Amer) Est GFR (Non-Af Amer) BUN/Creatinine Ratio Glucose Lactate Cancelled Calcium Magnesium Total Bilirubin AST ALT Alkaline Phosphatase Total Creatine Kinase CK-MB (CK-2) CK/CKMB % Calc Troponin I Total Protein Albumin Globulin Albumin/Globulin Ratio Procalcitonin 0.18 Urine Color Urine Appearance Urine pH Ur Specific [place] Urine Protein Urine Glucose (UA) Urine Ketones Urine Blood Urine Nitrite Urine Bilirubin Urine Urobilinogen Ur Leukocyte Esterase Urine WBC (Auto) Urine RBC (Auto) U Hyaline Cast (Auto) U Epithel Cells (Auto) Urine Bacteria (Auto) Urine Crystals Urine Yeast COVID-19 Eval Order Covid19 Done at [facility] COVID-19 PCR 01/10/20 01/10/20 11:58 13:15 WBC RBC Hgb Hct MCV MCH MCHC RDW Std Deviation RDW Coeff of Ken Plt Count MPV Immature Gran % (Auto) Neut % (Auto) Lymph % (Auto) Steele % (Auto) Eos % (Auto) Baso % (Auto) Neut # (Auto) Lymph # (Auto) Steele # (Auto) Eos # (Auto) Baso # (Auto) Immature Gran # (Auto) PT INR APTT PTT Ratio Sodium Potassium Chloride Carbon Dioxide Anion Gap BUN Creatinine Est Cr Clr Drug Dosing Est GFR ( Amer) Est GFR (Non-Af Amer) BUN/Creatinine Ratio Glucose Lactate Calcium Magnesium Total Bilirubin AST ALT Alkaline Phosphatase Total Creatine Kinase CK-MB (CK-2) CK/CKMB % Calc Troponin I Total Protein Albumin Globulin Albumin/Globulin Ratio Procalcitonin Urine Color Dark Yellow Urine Appearance Turbid A Urine pH 6.5 Ur Specific [place] 1.020 Urine Protein Trace H Urine Glucose (UA) Negative Urine Ketones Negative Urine Blood 3+ H Urine Nitrite Positive A Urine Bilirubin Negative Urine Urobilinogen Negative Ur Leukocyte Esterase 2+ H Urine WBC (Auto) >30 H Urine RBC (Auto) 0-4 U Hyaline Cast (Auto) 1-5 U Epithel Cells (Auto) 10-20 H Urine Bacteria (Auto) 4+ H Urine Crystals Not Reportable Urine Yeast Not Reportable COVID-19 Eval Order COVID-19 PCR NEGATIVE Diagnostic Findings CT abdomen/pelvis IMPRESSION: 1. Interval appendectomy 2. No evidence of bowel obstruction. No evidence of free air 3. Mild bowel wall thickening involving the left colon consistent with a nonspecific colitis 4. Malrotation of the bowel 5. No evidence of postsurgical abscess CXR: no abnormalities, no infiltrates PG Care Time/CCT Total # of Minutes Spent Total Time Spent with Patient: Total time spent is greater than 50% in coordination of care (as documented) at patient's floor/unit and/or counseling patient: Coding Level of Care Code 16715 Initial Inpt Care Lvl 3 Diagnoses UTI (urinary tract infection) N39.0 Sepsis A41.9 Fever R50.9 Fever type: unspecified Leukocytosis D72.829 Leukocytosis type: unspecified PAF (paroxysmal atrial fibrillation) I48.0 S/P appendectomy Z90.49 Hypothyroid E89.0 Hypothyroidism type: postoperative Hypertension I10 Hypertension type: essential hypertension Diarrhea R19.7 (1) Fever Fever type: unspecified Qualified Code(s): R50.9 - Fever, unspecified (2) Hypothyroid Hypothyroidism type: postoperative Qualified Code(s): E89.0 - Postprocedural hypothyroidism (3) Leukocytosis Leukocytosis type: unspecified Qualified Code(s): D72.829 - Elevated white blood cell count, unspecified (4) Hypertension Hypertension type: essential hypertension Qualified Code(s): I10 - Essential (primary) hypertension
[2020-01-11] MEDS: LEVOTHYROXINE SODIUM 88 MCG TABLET PO SCH (05:45)
[2020-01-11 06:31] LABS: Basophils # (auto) 0.04 K/uL (0-0.2); Basophils % (auto) 0.2 %; Eosinophils # (auto) 0.06 K/uL (0-0.5); Eosinophils % (auto) 0.3 %; Hematocrit (blood only) 37.5 % (37-47); Hemoglobin 11.9 g/dL (12.0-16.0); Immature Granulocytes # (auto) 0.07 K/uL (0.00-0.02); Immature Granulocytes % (auto) 0.3 %; Lymphocytes # (auto) 1.24 K/uL (1.2-3.4); Lymphocytes % (auto) 5.4 %; Mean Corpuscular Hemoglobin 28.4 pg (25-34); Mean Corpuscular Hgb Conc 31.7 g/dL (32-36); Mean Corpuscular Volume 89.5 fL (80-100); Mean Platelet Volume 11.1 fL (7.4-10.4); Monocytes # (auto) 2.61 K/uL (0.11-0.59); Monocytes % (auto) 11.4 %; Neutrophils # (auto) 18.88 K/uL (1.4-6.5); Neutrophils % (auto) 82.4 %; Platelet Count 164 K/uL (130-400); RDW Coefficient of Variation 14.2 % (11.5-14.5); RDW Standard Deviation 46.8 fL (36.4-46.3); Red Blood Count 4.19 M/uL (4.2-5.4)
[2020-01-11 07:12] LABS: Albumin Globulin Ratio 0.8 (0.9-2); Albumin Level 2.5 gm/dl (3.4-5.0); BUN Creatinine Ratio 15.8 (10-20); Bilirubin,Total 0.7 mg/dl (0.2-1); Calcium 8.3 mg/dl (8.5-10.1); Creatinine Clr Calc Pharmacy 71.3 ml/min; Est GFR (African American) 95.3; Est GFR (Non-African American) 82.2; Globulin 3.2 gm/dl (2.5-4.0); Potassium 3.5 mmol/L (3.5-5.1); Total Protein 5.7 gm/dl (6.4-8.2)
[2020-01-11] MEDS: LETROZOLE 2.5 MG TAB PO SCH (08:40)
[2020-01-11] MEDS: CETIRIZINE HCL 10 MG TABLET PO SCH (08:40)
[2020-01-11] MEDS: POTASSIUM CHLORIDE 10 MEQ TABCR PO SCH (08:40)
[2020-01-11] MEDS: CEFEPIME 2,000 MG in SYRINGE 0 ML IV SCH ×2 (08:40→21:05)
[2020-01-11] MEDS: SOTALOL HCL 80 MG TAB PO SCH ×2 (08:40→21:04)
[2020-01-11] MEDS: FAMOTIDINE 20 MG TAB PO SCH ×2 (08:41→21:04)
[2020-01-11] MEDS: APIXABAN 5 MG TABLET PO SCH ×2 (08:41→21:04)
[2020-01-11 13:12] LABS: Cdiff Antigen Positive
[2020-01-11 13:14] LABS: Cdiff Toxin A+B Positive Cdiff Toxin (Negative)
[2020-01-11] MEDS: VANCOMYCIN HCL 125 MG/2.5ML SOLN PO SCH ×2 (16:48→23:40)
[2020-01-11] MEDS: RASPBERRY SYRUP 5 ML UDP PO SCH ×2 (16:49→23:40)
--- NOTE | 2020-01-11 17:43 | Hospitalist Progress Note ---
Date of Service January 11, 2020 Assessment & Plan (1) C. difficile colitis: Initiated po vancomycin 125 mg qid Patient with non specific colitis on CT abd/pelvis (2) UTI (urinary tract infection): UA > 30 WBC, leukocytosis of 23k, Cefepime 2gm IV q12 BC ngtd Urine growing gram negative bacteria - unclear if this represents true infection or asymptomatic bacteriuria as she has never had urinary symptoms and there is now a source for the sepsis (3) Sepsis: Secondary to C diff and possible UTI patient was dehydrated, with fever and leukocytosis of 23K with left shift on admission UA with > 30 WBC no abdominal pain, no incisional drainage or signs of wound infection no fluid collection/abscess on CT abd/pelvis CXR clear and no clinical signs of pneumonia VSS today, afebrile (4) Fever: due to C diff COVID 19 negative (5) Leukocytosis: with left shift due to Cdiff CBC am (6) PAF (paroxysmal atrial fibrillation): HR in the 60's, no events on monitor continue Sotalol and anticoagulation (7) S/P appendectomy: incision healing well, abdomen soft, NT (8) Hypothyroid: (9) Hypertension: hold triamterene / HCTZ and Norvasc given her dehydration and low normal BP resume these once she is hypertensive (10) Diarrhea: secondary to C diff as above Admission and Anticipated Discharge Date Admission Date: January 10, 2020 Supervising Physician Co-Signing Physician Notes Patient not seen but I reviewed with Margot MUHAMMAD. I agree with her exam findings, review of systems, assessment and plan. I personally reviewed the lab work and imaging as well. patient feeling better now we know she is C diff positive, the UTI likely not the culprit of her fever, leukocytosis - C diff colitis: Vancomycin 125mg QID, follow for improvement in diarrhea and fever and leukocytosis recent antibiotic use during hospitalization last month for perforated appendicitis will need 10-14 days of treatment - UTI: continue Cefepime for now, follow up urine cultures Subjective Ms. Ibanez is feeling better today. She had about 3 bms in the last 24 hours. Some faint blood tinged mucous in her stools but no yas bleeding or melena. Eating and drinking well ROS Constitutional: no chills, aches, sweats or fever Respiratory: no sob,cough, sputum, or wheezing Cardiac: no chest pain, palpitations, edema, orthopnea or lightheadedness GI: no abdominal pain, nausea, vomiting, : no dysuria or hesitancy Extremities: no joint pain or weakness Skin: no rash All other systems reviewed and negative Physical Exam Physical Exam: General: no distress Eyes: normal inspection, PERLL Respiratory: chest non tender, clear to auscultation, normal breath sounds, no respiratory distress, no accessory muscle use Cardiac: regular rate and rhythm, no rub or gallop, no murmur, no edema, no jvd GI/: active bowel sounds, no abd pain or tenderness, soft, non distended Extremities: normal range of motion, normal strength, non tender Neuro/Psych: alert and oriented x 3, normal mood and affect Skin: normal color, dry Results & Data Results & Data ([facility] [place]) Vital Signs (Past 12 Hours) Vital Signs Temp Pulse Pulse Pulse Resp BP BP 01/11/20 15:41 36.9 C 60 18 109/67 01/11/20 15:12 61 01/11/20 12:00 36.7 C 61 20 113/67 01/11/20 07:37 37 C 68 20 106/62 01/11/20 07:28 60 Pulse Ox 01/11/20 15:41 96 01/11/20 15:12 01/11/20 12:00 98 01/11/20 07:37 95 01/11/20 07:28 PG Care Time/CCT Total # of Minutes Spent Total Time Spent with Patient: Total time spent is greater than 50% in coordination of care (as documented) at patient's floor/unit and/or counseling patient: Coding Level of Care Code 92875 Subseq Hosp Care Lvl 3 Diagnoses C. difficile colitis A04.72 UTI (urinary tract infection) N39.0 Sepsis A41.9 Fever R50.9 Fever type: unspecified Leukocytosis D72.829 Leukocytosis type: unspecified PAF (paroxysmal atrial fibrillation) I48.0 S/P appendectomy Z90.49 Hypothyroid E89.0 Hypothyroidism type: postoperative Hypertension I10 Hypertension type: essential hypertension Diarrhea R19.7 (1) Fever Fever type: unspecified Qualified Code(s): R50.9 - Fever, unspecified (2) Hypothyroid Hypothyroidism type: postoperative Qualified Code(s): E89.0 - Postprocedural hypothyroidism (3) Leukocytosis Leukocytosis type: unspecified Qualified Code(s): D72.829 - Elevated white blood cell count, unspecified (4) Hypertension Hypertension type: essential hypertension Qualified Code(s): I10 - Essential (primary) hypertension
[2020-01-11] MEDS: CALCIUM CARBONATE 500 MG CHEWABLE TAB PO PRN (19:45)
[2020-01-11] MEDS: ZOLPIDEM TARTRATE 5 MG TAB PO PRN (22:17)
[2020-01-12] MEDS: RASPBERRY SYRUP 5 ML UDP PO SCH ×4 (05:37→23:26)
[2020-01-12] MEDS: VANCOMYCIN HCL 125 MG/2.5ML SOLN PO SCH ×4 (05:37→23:26)
[2020-01-12] MEDS: LEVOTHYROXINE SODIUM 88 MCG TABLET PO SCH (05:38)
[2020-01-12 06:02] LABS: Basophils # (auto) 0.04 K/uL (0-0.2); Basophils % (auto) 0.4 %; Eosinophils # (auto) 0.49 K/uL (0-0.5); Eosinophils % (auto) 4.5 %; Hematocrit (blood only) 37.3 % (37-47); Hemoglobin 12.1 g/dL (12.0-16.0); Immature Granulocytes # (auto) 0.02 K/uL (0.00-0.02); Immature Granulocytes % (auto) 0.2 %; Lymphocytes # (auto) 1.72 K/uL (1.2-3.4); Lymphocytes % (auto) 15.8 %; Mean Corpuscular Hemoglobin 29.2 pg (25-34); Mean Corpuscular Hgb Conc 32.4 g/dL (32-36); Mean Corpuscular Volume 90.1 fL (80-100); Mean Platelet Volume 10.8 fL (7.4-10.4); Monocytes # (auto) 0.96 K/uL (0.11-0.59); Monocytes % (auto) 8.8 %; Neutrophils # (auto) 7.65 K/uL (1.4-6.5); Neutrophils % (auto) 70.3 %; Platelet Count 131 K/uL (130-400); RDW Coefficient of Variation 13.9 % (11.5-14.5); RDW Standard Deviation 46.4 fL (36.4-46.3); Red Blood Count 4.14 M/uL (4.2-5.4); White Blood Count 10.88 K/uL (4.8-10.8)
[2020-01-12] MEDS: APIXABAN 5 MG TABLET PO SCH ×2 (08:32→20:18)
[2020-01-12] MEDS: SOTALOL HCL 80 MG TAB PO SCH ×2 (08:32→20:19)
[2020-01-12] MEDS: LETROZOLE 2.5 MG TAB PO SCH (08:32)
[2020-01-12] MEDS: CETIRIZINE HCL 10 MG TABLET PO SCH (08:33)
[2020-01-12] MEDS: POTASSIUM CHLORIDE 10 MEQ TABCR PO SCH (08:33)
[2020-01-12] MEDS: CEFEPIME 2,000 MG in SYRINGE 0 ML IV SCH ×2 (08:33→20:18)
[2020-01-12] MEDS: FAMOTIDINE 20 MG TAB PO SCH ×2 (08:33→20:19)
--- NOTE | 2020-01-12 10:18 | Hospitalist Progress Note ---
Date of Service January 12, 2020 Assessment & Plan (1) C. difficile colitis: Initiated po vancomycin 125 mg qid Patient with non specific colitis on CT abd/pelvis feeling a lot better, less diarrhea at this point would treat the UTI for seven days total continue the Vanco 10-14 days after UTI treatment completed plan to discharge to [facility] tomorrow (2) UTI (urinary tract infection): UA > 30 WBC, leukocytosis of 23k on admission, but WBC likely that high due to C diff Cefepime 2gm IV q12 BC ngtd Urine growing gram negative bacteria - 100k units and she did admit to some bladder pain two days prior to admission would err on the side of caution and treat for 7 days, today is day 3 convert to PO antibiotics as soon as final culture back, could be back today (3) Sepsis: Secondary to C diff and possible UTI patient was dehydrated, with fever and leukocytosis of 23K with left shift on admission UA with > 30 WBC no abdominal pain, no incisional drainage or signs of wound infection no fluid collection/abscess on CT abd/pelvis CXR clear and no clinical signs of pneumonia VSS today, afebrile sepsis resolved within 24 hours (4) Fever: due to C diff COVID 19 negative (5) Leukocytosis: with left shift due to Cdiff CBC shows WBC down to 12k (6) PAF (paroxysmal atrial fibrillation): HR in the 60's, no events on monitor continue Sotalol and anticoagulation (7) S/P appendectomy: incision healing well, abdomen soft, NT will remove valencia today (8) Hypothyroid: (9) Hypertension: hold triamterene / HCTZ and Norvasc given her dehydration and low normal BP resume these once she is hypertensive (10) Diarrhea: secondary to C diff as above Admission and Anticipated Discharge Date Admission Date: January 10, 2020 Anticipated date of discharge: 01/13/20 Subjective patient feeling much, much better ate her entire breakfast this morning, actually the first time she has had an appetite in days reviewed labs, WBC down to 10k, Hb stable, BMP stable, no fever, vitals stable less diarrhea, no abdominal pain, no nausea/vomiting, no dysuria discussed going home tomorrow, she agrees will try to get valencia out today if there is time Review of Systems Review of Systems: All systems reviewed & are unremarkable except as noted in Subjective Constitutional: no fever, no chills, no sweats, no fatigue and no weakness Respiratory: no cough and no dyspnea Cardiovascular: no chest pain and no edema Gastrointestinal: + diarrhea/loose stools; no abdominal pain, no nausea, no vomiting and no constipation Physical Exam Constitutional: well developed, well nourished, + ill appearing and + diaphoretic; no acute distress Eyes: PERRL, conjunctivae normal, anicteric sclerae ENMT: external ear and nose normal, oropharynx normal Neck: trachea midline, no thyromegaly Respiratory: normal respiratory effort, lungs clear to auscultation Cardiovascular: RRR, no murmur, no edema Gastrointestinal (Abdomen): Inspection/Auscultation: normal bowel sounds and + abdominal surgical incision (clean, dry, intact with valencia, no drainage, no erythema, healing well); abdomen not distended Percussion/Palpation: abdomen soft; abdomen nontender, no guarding, abdomen not rigid and no hernia Musculoskeletal: no cyanosis or clubbing, extremities motor strength 5/5 Skin: no rashes, warm and dry Neurologic: patellar DTR's 2+ bilat, sensation intact and PERRL, EOMI, accommodation nl, no face palsy, no dysarthria Psychiatric: A+Ox3, euthymic affect Lymphatic: no cervical or axillary lymphadenopathy Results & Data Results & Data ([facility]) Vital Signs (Past 12 Hours) Vital Signs Temp Pulse Pulse Pulse Resp BP Pulse Ox 01/12/20 08:00 36.5 C 65 18 122/74 98 01/12/20 07:09 73 01/12/20 03:25 36.5 C 60 18 117/75 98 01/12/20 00:30 107 H 01/11/20 23:48 36.7 C 88 20 119/74 95 Laboratory Results Laboratory Results - last 24 hr 01/11/20 01/12/20 Unknown 05:37 WBC 10.88 H D RBC 4.14 L Hgb 12.1 Hct 37.3 MCV 90.1 MCH 29.2 MCHC 32.4 RDW Std Deviation 46.4 H RDW Coeff of Ken 13.9 Plt Count 131 MPV 10.8 H Immature Gran % (Auto) 0.2 Neut % (Auto) 70.3 Lymph % (Auto) 15.8 [place] % (Auto) 8.8 Eos % (Auto) 4.5 Baso % (Auto) 0.4 Neut # (Auto) 7.65 H Lymph # (Auto) 1.72 [place] # (Auto) 0.96 H Eos # (Auto) 0.49 Baso # (Auto) 0.04 Immature Gran # (Auto) 0.02 Stl C. diff Tox B Gene Positive Cdiff Gene H Stl C.difficile Tox A&B Positive Cdiff Toxin A* Medications Administered Current Inpatient Medications Acetaminophen (Acetaminophen 325 Mg Tab) 650 mg PO Q4H PRN PRN Reason: Pain or Fever Stop: 02/09/20 16:36 Last Admin: 01/11/20 22:17 Dose: 650 mg Documented by: Apixaban (Apixaban 5 Mg Tablet) 5 mg PO BID [facility] Stop: 02/09/20 20:59 Last Admin: 01/12/20 08:32 Dose: 5 mg Documented by: Calcium Carbonate (Calcium Carbonate 500 Mg Chewable Tab) 1,500 mg PO Q4H PRN PRN Reason: Indigestion Stop: 02/10/20 19:35 Last Admin: 01/11/20 19:45 Dose: 1,500 mg Documented by: Cetirizine HCl (Cetirizine Hcl 10 Mg Tablet) 10 mg PO DAILY [facility] Stop: 02/10/20 08:59 Last Admin: 01/12/20 08:33 Dose: 10 mg Documented by: Famotidine (Famotidine 20 Mg Tab) 20 mg PO BID [facility] Stop: 02/09/20 20:59 Last Admin: 01/12/20 08:33 Dose: 20 mg Documented by: Cefepime HCl 2,000 mg/ Syringe 20 mls @ 5 mls/min IV Q12 [facility]; Protocol Stop: 01/20/20 20:59 Last Admin: 01/12/20 08:33 Dose: 5 mls/min Documented by: Letrozole (Letrozole 2.5 Mg Tab) 2.5 mg PO DAILY [facility] Stop: 02/10/20 08:59 Last Admin: 01/12/20 08:32 Dose: 2.5 mg Documented by: Levothyroxine Sodium (Levothyroxine Sodium 88 Mcg Tablet) 88 mcg PO DAILYBB [facility] Stop: 02/10/20 06:29 Last Admin: 01/12/20 05:38 Dose: 88 mcg Documented by: Ondansetron HCl (Ondansetron Inj 2 Mg/Ml 2 Ml Vial) 4 mg IV Q6H PRN PRN Reason: Nausea Stop: 02/09/20 16:36 Last Admin: 01/10/20 20:19 Dose: 4 mg Documented by: Oxycodone/Acetaminophen (Oxycodone/Acetaminophen 5mg/325mg Tab) 1 tab PO Q4H PRN PRN Reason: pain Stop: 01/24/20 16:36 Potassium Chloride (Potassium Chloride 10 Meq Tabcr) 10 meq PO DAILY [facility] Stop: 02/10/20 08:59 Last Admin: 01/12/20 08:33 Dose: 10 meq Documented by: Raspberry (Raspberry Syrup 5 Ml Udp) 5 ml PO Q6 [facility] Stop: 01/25/20 15:59 Last Admin: 01/12/20 05:37 Dose: 5 ml Documented by: Sotalol HCl (Sotalol Hcl 80 Mg Tab) 80 mg PO BID [facility] Stop: 02/09/20 20:59 Last Admin: 01/12/20 08:32 Dose: 80 mg Documented by: Vancomycin HCl (Vancomycin Hcl 125 Mg/2.5ml Soln) 125 mg PO Q6 [facility] Stop: 01/21/20 15:59 Last Admin: 01/12/20 05:37 Dose: 125 mg Documented by: Zolpidem Tartrate (Zolpidem Tartrate 5 Mg Tab) 5 mg PO HS PRN PRN Reason: Sleep Stop: 02/10/20 21:30 Last Admin: 01/11/20 22:17 Dose: 5 mg Documented by: PG Care Time/CCT Total # of Minutes Spent Total Time Spent with Patient: Total time spent is greater than 50% in coordination of care (as documented) at patient's floor/unit and/or counseling patient: Coding Level of Care Code 93837 Subseq Hosp Care Lvl 3 Diagnoses C. difficile colitis A04.72 UTI (urinary tract infection) N39.0 Sepsis A41.9 Fever R50.9 Fever type: unspecified Leukocytosis D72.829 Leukocytosis type: unspecified PAF (paroxysmal atrial fibrillation) I48.0 S/P appendectomy Z90.49 Hypothyroid E89.0 Hypothyroidism type: postoperative Hypertension I10 Hypertension type: essential hypertension Diarrhea R19.7 (1) Fever Fever type: unspecified Qualified Code(s): R50.9 - Fever, unspecified (2) Leukocytosis Leukocytosis type: unspecified Qualified Code(s): D72.829 - Elevated white blood cell count, unspecified (3) Hypothyroid Hypothyroidism type: postoperative Qualified Code(s): E89.0 - Postprocedural hypothyroidism (4) Hypertension Hypertension type: essential hypertension Qualified Code(s): I10 - Essential (primary) hypertension
[2020-01-12] MEDS: CALCIUM CARBONATE 500 MG CHEWABLE TAB PO PRN ×2 (15:42→20:18)
[2020-01-12] MEDS: ZOLPIDEM TARTRATE 5 MG TAB PO PRN (22:12)
[2020-01-13] MEDS: VANCOMYCIN HCL 125 MG/2.5ML SOLN PO SCH ×2 (06:09→11:13)
[2020-01-13] MEDS: RASPBERRY SYRUP 5 ML UDP PO SCH ×2 (06:09→11:13)
[2020-01-13] MEDS: LEVOTHYROXINE SODIUM 88 MCG TABLET PO SCH (06:10)
[2020-01-13 06:36] LABS: Basophils # (auto) 0.04 K/uL (0-0.2); Basophils % (auto) 0.6 %; Eosinophils # (auto) 0.49 K/uL (0-0.5); Eosinophils % (auto) 7.1 %; Hematocrit (blood only) 38.5 % (37-47); Hemoglobin 12.3 g/dL (12.0-16.0); Immature Granulocytes # (auto) 0.01 K/uL (0.00-0.02); Immature Granulocytes % (auto) 0.1 %; Lymphocytes % (auto) 17.3 %; Mean Corpuscular Hemoglobin 28.2 pg (25-34); Mean Corpuscular Hgb Conc 31.9 g/dL (32-36); Mean Corpuscular Volume 88.3 fL (80-100); Mean Platelet Volume 11.2 fL (7.4-10.4); Monocytes # (auto) 0.73 K/uL (0.11-0.59); Monocytes % (auto) 10.5 %; Neutrophils # (auto) 4.48 K/uL (1.4-6.5); Neutrophils % (auto) 64.4 %; Platelet Count 142 K/uL (130-400); RDW Coefficient of Variation 13.6 % (11.5-14.5); RDW Standard Deviation 44.1 fL (36.4-46.3); Red Blood Count 4.36 M/uL (4.2-5.4); White Blood Count 6.95 K/uL (4.8-10.8)
--- NOTE | 2020-01-13 08:21 | Hospitalist Progress Note ---
Date of Service January 13, 2020 Assessment & Plan (1) C. difficile colitis: Patient with non specific colitis on CT abd/pelvis, Initiated po vancomycin 125 mg qid treat the UTI for seven days total continue the Vanco 10-14 days after UTI treatment completed plan to discharge to [facility] tomorrow (2) UTI (urinary tract infection): UA > 30 WBC, leukocytosis of 23k on admission, but WBC likely that high due to C diff Cefepime 2gm IV q12 BC ngtd Urine growing Enterobacter-intermediate to Ceftriaxone and nitrofurantoin, sensitive to quinalones and bactrim (3) Sepsis: Secondary to C diff and possible UTI patient was dehydrated, with fever and leukocytosis of 23K with left shift on admission UA with > 30 WBC no abdominal pain, no incisional drainage or signs of wound infection no fluid collection/abscess on CT abd/pelvis CXR clear and no clinical signs of pneumonia sepsis resolved (4) Fever: due to C diff COVID 19 negative (5) PAF (paroxysmal atrial fibrillation): HR in the 60's, no events on monitor continue Sotalol and anticoagulation with apixaban 5 bid (6) S/P appendectomy: 12/22 incision healing well, abdomen soft, NT (7) Hypothyroid: (8) Hypertension: hold triamterene / HCTZ and Norvasc given her dehydration and low normal BP resume when able (9) Diarrhea: secondary to C diff as above Admission and Anticipated Discharge Date Admission Date: January 10, 2020 Results & Data Results & Data ([facility]) Vital Signs (Past 12 Hours) Vital Signs Temp Pulse Pulse Resp BP Pulse Ox 01/13/20 07:14 98.1 F 60 20 143/78 H 97 01/13/20 07:00 64 01/13/20 01:57 69 01/12/20 22:36 97.7 F 71 18 158/84 H 98 PG Care Time/CCT Total # of Minutes Spent Total Time Spent with Patient: Total time spent is greater than 50% in coordination of care (as documented) at patient's floor/unit and/or counseling patient: Coding Diagnoses C. difficile colitis A04.72 UTI (urinary tract infection) N39.0 Sepsis A41.9 Fever R50.9 Fever type: unspecified PAF (paroxysmal atrial fibrillation) I48.0 S/P appendectomy Z90.49 Hypothyroid E89.0 Hypothyroidism type: postoperative Hypertension I10 Hypertension type: essential hypertension Diarrhea R19.7 (1) Fever Fever type: unspecified Qualified Code(s): R50.9 - Fever, unspecified (2) Hypothyroid Hypothyroidism type: postoperative Qualified Code(s): E89.0 - Postprocedural hypothyroidism (3) Hypertension Hypertension type: essential hypertension Qualified Code(s): I10 - Essential (primary) hypertension
[2020-01-13] MEDS: CETIRIZINE HCL 10 MG TABLET PO SCH (08:30)
[2020-01-13] MEDS: FAMOTIDINE 20 MG TAB PO SCH (08:30)
[2020-01-13] MEDS: SOTALOL HCL 80 MG TAB PO SCH (08:31)
[2020-01-13] MEDS: POTASSIUM CHLORIDE 10 MEQ TABCR PO SCH (08:31)
[2020-01-13] MEDS: APIXABAN 5 MG TABLET PO SCH (08:31)
[2020-01-13] MEDS: CEFEPIME 2,000 MG in SYRINGE 0 ML IV SCH (08:32)
[2020-01-13] MEDS: LETROZOLE 2.5 MG TAB PO SCH (08:32)
--- NOTE | 2020-01-13 18:33 | Discharge Summary ---
Date of Service January 13, 2020 Admission HPI Per Admitting Provider 79 yo female with recent hospitalization for perforated appendicitis, required open appendectomy, was hospitalized for two weeks, required IV antibiotics. She was eventually discharged to [facility] for acute rehabilitation. She has been following a low fiber diet. She has been doing well. Abdominal pain has been minimal. She continues to have loose stools, they really have never become formed since her surgery. She had a follow up with Dr. Torres, he cut three sutures out and some purulent fluid drained from wound but that stopped quickly. She was supposed to see general surgery on Monday for staple removal. She says her incision has been clean, no erythema or pain. She did so well with rehab that she returned to her independent living apartment with her 4 days ago. She started to develop fevers and chills over the past two days. She had the diarrhea but no abdominal pain. She admitted to a sharp pain in her bladder two days ago but it went away quickly. She denies dysuria or urinary frequency. She denies dyspnea or cough. She was sent to the ED since she was having a fever and generally not feeling well. In the ED she has a fever, leukocytosis of 23k. Hb is 13. CMP is normal, procalcitonin normal, troponin negative. CXR clear. CT abdomen/pelvis with expected post op changes, some non-specific findings of colitis. UA appears infected with > 30WBC. She was given IV fluids, Daptomycin and Zosyn in the ED. Admission requested. Principal Diagnosis C. difficile colitis Enterobacter urinary tract infection present on admission Weakness resolved Discharge Exam The patient appeared well Vital signs as documented. Extremities are nonedematous Neurologic exam is alert and oriented, no focal loss of strength or sensation Skin is without bruises or rashes Psychologically is without concerns for anxiety or depression. Discharge Data Allergies Allergy/AdvReac Type Severity Reaction Status Date / Time adhesive Allergy Unknown Skin Verified 01/10/20 12:40 irritation;Skin very sensitive; allantoin Allergy Unknown Skin very Verified 01/10/20 12:40 sensitive; aloe Allergy Unknown Skin very Verified 01/10/20 12:40 sensitive; edetic acid Allergy Unknown Skin very Verified 01/10/20 12:40 sensitive; glycerin Allergy Unknown Skin very Verified 01/10/20 12:40 sensitive; lanolin Allergy Unknown Skin very Verified 01/10/20 12:40 sensitive; trolamine salicylate Allergy Unknown Skin very Verified 01/10/20 12:40 sensitive; vitamin A Allergy Unknown Skin very Verified 01/10/20 12:40 sensitive; Stearic Acid Allergy Unknown Skin very Uncoded 01/10/20 12:40 sensitive; Consultations 01/10/20 14:05 ED Decision to Admit Stat 01/10/20 16:37 Consult Case Management - Discharge Planning Routine Ordered Studies 01/10/20 11:46 CT abd pelvis IV con only Stat Hospital Course (1) C. difficile colitis: Patient with non specific colitis on CT abd/pelvis, Initiated po vancomycin 125 mg qid to complete additional 7 days for 10-day total treatment adding cholestyramine to try to reduce diarrheal output treat urinary tract infection for 1 week plan to discharge to [facility] 01/12 (2) UTI (urinary tract infection): UA > 30 WBC, leukocytosis of 23k on admission, but WBC likely that high due to C diff Cefepime 2gm IV q12 Urine growing Enterobacter-intermediate to Ceftriaxone and nitrofurantoin, sensitive to quinalones and bactrim will discharge on levofloxacin (3) Sepsis: Resolvedsecondary to C diff and possible UTI UA with > 30 WBC no abdominal pain, no incisional drainage or signs of wound infection no fluid collection/abscess on CT abd/pelvis CXR clear and no clinical signs of pneumonia sepsis resolved (4) Fever: due to C diff admission COVID 19 negative (5) PAF (paroxysmal atrial fibrillation): HR in the 60's, no events on monitor continue Sotalol and anticoagulation with apixaban 5 bid (6) S/P appendectomy: 12/22 -incision healing well, abdomen soft, NT (7) Hypothyroid: (8) Hypertension: Holding amlodipine and diuretics at time of discharge (9) Diarrhea: secondary to C diff as above Total Time Total Time Spent Total Time Spent (In Minutes): It required greater than 30 minutes to prepare this patient for discharge Discharge Plan Discharge Items Patient Disposition: [facility] Reason For Visit: UTI, SEPSIS Discharge Diagnosis: sepsis - resolved, secondary to C Diff and Enterobacteria, improving Activity: Resume your previous activity Non-emergency contact: Primary Care Provider Call non-emergency contact if: you have any medication questions and your symptoms worsen Follow-up/Referrals: Balta Stephenson [Primary Care Provider] - Diet: Regular Addtl Attending Provider Instructions: treat for C Diff for another week, consider extending treatment if diarrhea persists use appropriate isolation for C Diff Pending Studies at Discharge: No Stand-Alone Forms: [facility], Smoking Cessation Skilled Items Patient informed of condition?: Yes DNR: No Discharge Level of Care: Skilled Communicable Disease: Yes Discharge Prognosis: Stable Lines: None Urinary Catheter: No Medications and DC Order Prescriptions: New vancomycin 125 mg capsule 125 mg PO Q6H 7 Days Qty: 28 RF: 0 levofloxacin [Levaquin] 500 mg tablet 500 mg PO DAILY 4 Days Qty: 4 RF: 0 colestipol [Colestid] 5 gram packet 5 g PO BID Qty: 30 RF: 0 Continued sotalol 80 mg tablet 80 mg PO BID RF: 0 amlodipine [Norvasc] 2.5 mg tablet 2.5 mg PO DAILY RF: 0 potassium chloride 10 mEq tablet extended release 10 meq PO DAILY RF: 0 levothyroxine [Synthroid] 88 mcg tablet 88 mcg PO DAILY RF: 0 famotidine 20 mg Tablet 20 mg PO BID RF: 0 triamterene-hydrochlorothiazid [Maxzide-25mg] 37.5-25 mg tablet 1 tab PO MOWEFR RF: 0 zolpidem [Ambien] 5 mg tablet 5 mg PO HS RF: 0 letrozole [Femara] 2.5 mg tablet 2.5 mg PO DAILY RF: 0 cetirizine 10 mg Capsule 10 mg PO DAILY RF: 0 Eliquis 5 mg tablet 5 mg PO BID RF: 0 oxycodone-acetaminophen [Percocet] 5-325 mg tablet 1 tab PO Q4H PRN (Reason: pain) Qty: 18 RF: 0 Discharge Orders: Discharge Order (Routine); Ordered 01/13/20 Ordered By: Addison Talbert Admission Data Admit Date/Time: 01/10/20 15:27 Attending Provider: Addison Talbert Admit Provider: Jose Antonio Jaime Primary Care Provider: Balta Stephenson Other Providers: Clint Traylor Other Interventions: Discharge Summary Assessment (RN) Last Done: 01/13/20 11:59 Coding Level of Care Code D/C Day Management >30 mins Diagnoses C. difficile colitis A04.72 UTI (urinary tract infection) N39.0 Sepsis A41.9 Fever R50.9 Fever type: unspecified PAF (paroxysmal atrial fibrillation) I48.0 S/P appendectomy Z90.49 Hypothyroid E89.0 Hypothyroidism type: postoperative Hypertension I10 Hypertension type: essential hypertension Diarrhea R19.7
== END 2020-01-13 14:30 | disposition home or self-care (01) | DRG 872 ==
LOC: ED 10:38 → 2N 15:27 → SUATTDRO 15:27 → 2N 16:19
DX: Z20.828 Contact with and (suspected) exposure to other viral communicable diseases; A04.72 Enterocolitis due to Clostridium difficile, not specified as recurrent; Z79.899 Other long term (current) drug therapy; I48.0 Paroxysmal atrial fibrillation; I10 Essential (primary) hypertension; A41.89 Other specified sepsis; Z79.01 Long term (current) use of anticoagulants; N39.0 Urinary tract infection, site not specified; Z85.72 Personal history of non-Hodgkin lymphomas; E03.9 Hypothyroidism, unspecified; Z79.890 Hormone replacement therapy; Z88.8 Allergy status to other drugs, medicaments and biological substances; Z79.811 Long term (current) use of aromatase inhibitors; Z85.3 Personal history of malignant neoplasm of breast; E86.0 Dehydration; Z91.048 Other nonmedicinal substance allergy status